=== PATIENT | female | born 1950 | race African-American/Black ===

== ENCOUNTER 2018-01-11 11:59 | Emergency (ER) | payer OTHER ==
--- NOTE | 2018-01-11 14:16 | RAD REPORT ---
EXAM DESCRIPTION: RAD - Pelvis - 01/11/2018 2:01 pm CLINICAL HISTORY: Fall, hip pain, pelvic pain COMPARISON: CT December 2016 and September 2014 TECHNIQUE: AP imaging of the pelvis was obtained. FINDINGS: No fracture of the bony pelvis. No fracture or dislocation of either proximal femur. Mild pubic symphysis degenerative changes are present. There degenerative changes at each SI joint. Dense sclerotic changes are present at the right SI joint not clearly different back to the 2015 imaging. L ower lumbar degenerative changes are present. IMPRESSION: No pelvic or proximal femur fracture identified. Stable sclerotic change at the right SI joint.
--- NOTE | 2018-01-11 14:17 | RAD REPORT ---
EXAM DESCRIPTION: RAD - Hip Right 2 View - 01/11/2018 2:01 pm CLINICAL HISTORY: Fall, hip pain COMPARISON: CT imaging December 2016 and September 2014 FINDINGS: AP and frog-leg views of the right hip were obtained. There is no fracture or dislocation . No AVN or focal femoral head abnormality. No periarticular mass or hematoma seen. SI joint degenerative change and right SI joint sclerotic change stable back to at least 2014. IMPRESSION: Negative right hip examination for acute findings.
--- NOTE | 2018-01-11 14:20 | RAD REPORT ---
EXAM DESCRIPTION: RAD - Shoulder Left 2 View - 01/11/2018 2:01 pm CLINICAL HISTORY: Fall, shoulder pain COMPARISON: None. TECHNIQUE: Internal and external rotation views of the left shoulder were obtained. FINDINGS: There is no fracture or dislocation. Mild degenerative changes at the AC joint. Acromial h umeral joint space is normal. There is some degenerative change to the undersurface of the acromion b ut no calcification in the acromial humeral joint space. Degenerative spurring is seen along the talon cular margins of the humeral head. No acute humeral head finding. IMPRESSION: Negative two-view left shoulder examination dislocation or acute finding. Humeral head and AC joint degenerative change as detailed.
--- NOTE | 2018-01-11 14:21 | RAD REPORT ---
EXAM DESCRIPTION: RAD - Forearm Left - 01/11/2018 2:01 pm CLINICAL HISTORY: Fall, arm pain COMPARISON: None. FINDINGS: No fracture is identified. There is no dislocation or periosteal reaction noted. Small bony density along the anterior margin of the joint line on the lateral view is doubtful as karen ng an avulsion. This could be part of a mild underlying elbow joint degenerative process. Anterior darrell int capsule calcification or anterior joint loose body would be possible. An acute injury to the fore arm is not identified. No foreign body. IMPRESSION: No fracture or acute finding identifiable. Small calcification along the anterior elbow joint that could be part of joint capsule calcification or small loose body. Acute bony avulsion is doubtful.
--- NOTE | 2018-01-11 14:36 | ER ---
Nurse's Notes [facility] Name: Octavia Anderson Age: 67 yrs Sex: Female : 1950 Arrival Date: 01/11/2018 Time: 12:02 Bed 11 Private MD: Diagnosis: Contusion of right hip;Contusion of left forearm;Pain in left shoulder Presentation: 01/11 12:18 Presenting complaint: Patient states: I fell Tuesday and Tuesday, I hit my R hip and my L ch forearm, my L forearm hurts. I lost my balance. Care prior to arrival: None. Mechanism of Injury: Fall fell while walking. Trauma event details: Injury occurred in the [facility], Injury occurred: at home. Injury occurred: January 08, 2018 Injury occurred at: 12:00. 12:18 Acuity: MYRNA 4 12:18 Method Of Arrival: Ambulatory 12:24 Transition of care: patient was not received from another setting of care. Onset of ch symptoms was January 08, 2018. Initial Sepsis Screen: Does the patient meet any 2 criteria? No. Patient's initial sepsis screen is negative. Does the patient have a suspected source of infection? No. Patient's initial sepsis screen is negative. Trauma Activation: Not Applicable Physician: ED Physician; Name: ; Notified At: ; Arrived At: Physician: General Surgeon; Name: ; Notified At: ; Arrived At: Physician: Radiology; Name: ; Notified At: ; Arrived At: Physician: Respiratory; Name: ; Notified At: ; Arrived At: Physician: Lab; Name: ; Notified At: ; Arrived At: Historical: - Allergies: 12:22 PENICILLINS; ch - Home Meds: 12:22 aspirin 81 mg Oral chew 1 tab once daily [Active]; carvedilol 12.5 mg oral tab 1 tab ch every 12 hours [Active]; simvastatin 40 mg Oral tab 1 tab once daily for Mixed Hyperlipidemia [Active]; trulicity 1.5mg/0.5ml pen injector 1.5 mg once a week for Diabetes [Active]; juarda [Active]; - PMHx: 12:22 Diabetes - NIDDM; GERD; Headaches; Hyperlipidemia; Hypertension; ch - PSHx: 12:22 Hysterectomy; ch - Immunization history: Last tetanus immunization: < 5 years ago. - Social history:: Smoking status: Patient/guardian denies using tobacco. Screenin:22 Abuse screen: Denies threats or abuse. Denies injuries from another. Tuberculosis ch screening: No symptoms or risk factors identified. 12:54 Nutritional screening: No deficits noted. Fall Risk Fall in past 12 months (25 points). ed1 No secondary diagnosis (0 pts). No IV (0 pts). Ambulatory Aid- Crutches/Cane/Walker (15 pts). Gait- Normal/Bed Rest/Wheelchair (0 pts) Mental Status- Oriented to own ability (0 pts). Total Min Fall Scale indicates Low Risk Score (25-44 pts). Fall prevention measures have been instituted. Frequent Obs/Assesments occuring As available Patient and Family Educated on Fall Prevention Program and strategies. Primary Survey: 12:22 A: Airway: patent. Breathing/Chest: Respiratory pattern: regular, Respiratory effort: ch spontaneous, unlabored. Circulation: Heart tones present. Disability Alert. 12:54 Reassessment Breathing/Chest Respiratory pattern Regular Respiratory effort Spontaneous ed1 Breath sounds Clear Chest inspection Symmetrical. Secondary Survey: 12:22 Gastrointestinal: No deficits noted. : No signs and/or symptoms were reported ch regarding the genitourinary system. Musculoskeletal: Circulation, motion, and sensation intact. Capillary refill < 3 seconds, in bilateral fingers. toes. Range of motion: intact in all extremities, Swelling present in palmar aspect of left forearm. Assessment: 12:18 General: Appears in no apparent distress. comfortable, Behavior is calm, cooperative, ch appropriate for age. Pain: Complains of pain in right hip and palmar aspect of left forearm Pain currently is 10 out of 10 on a pain scale. Neuro: No deficits noted. Derm: Skin is pink, warm \T\ dry. Musculoskeletal: Circulation, motion, and sensation intact. Capillary refill < 3 seconds, in bilateral fingers. toes. 12:54 Reassessment: Patient appears in no apparent distress at this time. No changes from ed1 previously documented assessment. Patient and/or family updated on plan of care and expected duration. Pain level reassessed. Patient is alert, oriented x 3, equal unlabored respirations, skin warm/dry/pink. Patient states symptoms have not improved. 13:57 Reassessment: Patient appears in no apparent distress at this time. No changes from ed1 previously documented assessment. Patient and/or family updated on plan of care and expected duration. Pain level reassessed. Patient is alert, oriented x 3, equal unlabored respirations, skin warm/dry/pink. Patient states symptoms have not improved. 14:42 Reassessment: Patient appears in no apparent distress at this time. No changes from ed1 previously documented assessment. Patient and/or family updated on plan of care and expected duration. Pain level reassessed. Patient is alert, oriented x 3, equal unlabored respirations, skin warm/dry/pink. Patient states symptoms have not improved. Vital Signs: 12:22 BP 140 / 72; Pulse 78; Resp 18; Temp 97.9; Pulse Ox 100% on R/A; Weight 106.14 kg; ch Height 5 ft. 4 in. (162.56 cm); Pain 10/10; 13:22 BP 141 / 78; Pulse 86; Resp 17; Temp 98.1(O); Pulse Ox 100% on R/A; Pain 10/10; ed1 14:22 BP 139 / 76; Pulse 66; Resp 17; Temp 97.9(O); Pulse Ox 100% on R/A; Pain 10/10; ed1 12:22 Body Mass Index 40.17 (106.14 kg, 162.56 cm) ch Kalyn Coma Score: 12:22 Eye Response: spontaneous(4). Verbal Response: oriented(5). Motor Response: obeys ch commands(6). Total: 15. Trauma Score (Adult): 12:22 Eye Response: spontaneous(1); Verbal Response: oriented(1); Motor Response: obeys ch commands(2); Systolic BP: > 89 mm Hg(4); Respiratory Rate: 10 to 29 per min(4); Kalyn Score: 15; Trauma Score: 12 13:22 Eye Response: spontaneous(1); Verbal Response: oriented(1); Motor Response: obeys ed1 commands(2); Systolic BP: > 89 mm Hg(4); Respiratory Rate: 10 to 29 per min(4); [place] Score: 15; Trauma Score: 12 14:22 Eye Response: spontaneous(1); Verbal Response: oriented(1); Motor Response: obeys ed1 commands(2); Systolic BP: > 89 mm Hg(4); Respiratory Rate: 10 to 29 per min(4); [place] Score: 15; Trauma Score: 12 ED Course: 12:02 Patient arrived in ED. sb2 12:20 Triage completed. ch 12:22 Patient has correct armband on for positive identification. ch 12:22 Patient maintains SpO2 saturation greater than 95% on room air. ch 12:24 Arm band placed on right wrist. ch 12:54 Velvet Sykes LVN is Primary Nurse. ed1 12:54 Thermoregulation: warm blanket given to patient. ed1 12:58 Dieter Holland NP is PHCP. pm1 12:58 Ross Mclean MD is Attending Physician. pm1 13:33 Patient moved to radiology via wheelchair. jb2 13:57 X-ray completed. Patient tolerated procedure well. jb2 13:57 Patient moved back from radiology. jb2 14:01 XRAY Forearm LEFT In Process Unspecified. EDMS 14:01 XRAY Pelvis In Process Unspecified. EDMS 14:01 XRAY Shoulder LEFT 2 view In Process Unspecified. EDMS 14:01 Hip Right 2 View XRAY In Process Unspecified. EDMS 14:42 No provider procedures requiring assistance completed. Patient did not have IV access ed1 during this emergency room visit. Administered Medications: No medications were administered Intake: 12:22 PO: 0ml; Total: 0ml. ch 13:22 PO: 0ml; Total: 0ml. ed1 14:22 PO: 0ml; Total: 0ml. ed1 Output: 13:22 Urine: 0ml; Total: 0ml. ed1 14:22 Urine: 0ml; Total: 0ml. ed1 Outcome: 14:36 Discharge ordered by MD. pm1 14:42 Discharged to home ambulatory. ed1 14:42 Condition: good 14:42 Discharge instructions given to patient, Instructed on discharge instructions, follow up and referral plans. Demonstrated understanding of instructions, follow-up care. 14:45 Patient's length of stay was not longer than 2 hours. ed1 14:46 Patient left the ED. ed1 Signatures: Dispatcher [employer] EDMS Florinda Gaxiola RN RN ch Buechter, Jesse jb2 Velvet Sykes LVN SENIOR ANDROID SOFTWARE ENGINEER ed1 Dieter Holland NP FREIGHT AIR BRAKE FITTER pm1 Ana Woods sb2 Corrections: (The following items were deleted from the chart) 14:44 14:42 Nutritional screening: No deficits noted. ed1 ed1 14:44 14:42 Fall Risk Fall in past 12 months (25 points). No secondary diagnosis (0 pts). No ed1 IV (0 pts). Ambulatory Aid- Crutches/Cane/Walker (15 pts). Gait- Normal/Bed Rest/Wheelchair (0 pts) Mental Status- Oriented to own ability (0 pts). Total Min Fall Scale indicates Low Risk Score (25-44 pts). Fall prevention measures have been instituted. Frequent Obs/Assesments occuring As available Patient and Family Educated on Fall Prevention Program and strategies. ed1 14:45 14:42 BP 139 / 76; Pulse 66bpm; Resp 17bpm; Pulse Ox 100% RA; Temp 97.9F Oral; Pain ed1 06/14; ed1 14:45 14:42 PO 0, Urine 0, ed1 ed1 14:45 14:42 [place] Score=15, Trauma Score=12, ed1 ed1
--- NOTE | 2018-01-11 14:37 | EDPHYS ---
Physician Documentation [facility] Name: Octavia Anderson Age: 67 yrs Sex: Female : 1950 Arrival Date: 01/11/2018 Time: 12:02 Bed 11 Private MD: ED Physician Ross Mclean HPI: 01/11 14:00 This 67 yrs old Black Female presents to ER via Ambulatory with complaints of Fall pm1 Injury. 14:00 Details of fall: The patient fell from an upright position, while walking. Onset: The pm1 symptoms/episode began/occurred 2 day(s) ago. Associated injuries: The patient sustained left arm, left shoulder, right hip. Severity of symptoms: in the emergency department the symptoms are unchanged. The patient has not experienced similar symptoms in the past. patient was walking and had a fall 2 days ago and landed on her right hip. Yesterday patient with fall on her left side that was supported by her left arm and resulted in doyle to left shoulder area. 14:00 No head injury, neck pain, or LOC. pm1 Historical: - Allergies: 12:22 PENICILLINS; ch - Home Meds: 12:22 aspirin 81 mg Oral chew 1 tab once daily [Active]; carvedilol 12.5 mg oral tab 1 tab ch every 12 hours [Active]; simvastatin 40 mg Oral tab 1 tab once daily for Mixed Hyperlipidemia [Active]; trulicity 1.5mg/0.5ml pen injector 1.5 mg once a week for Diabetes [Active]; juarda [Active]; - PMHx: 12:22 Diabetes - NIDDM; GERD; Headaches; Hyperlipidemia; Hypertension; ch - PSHx: 12:22 Hysterectomy; ch - Immunization history: Last tetanus immunization: < 5 years ago. - Social history:: Smoking status: Patient/guardian denies using tobacco. ROS: 14:00 Constitutional: Negative for fever, chills, and weight loss, Eyes: Negative for injury, pm1 pain, redness, and discharge, ENT: Negative for injury, pain, and discharge, Neck: Negative for injury, pain, and swelling, Cardiovascular: Negative for chest pain, palpitations, and edema, Respiratory: Negative for shortness of breath, cough, wheezing, and pleuritic chest pain, Abdomen/GI: Negative for abdominal pain, nausea, vomiting, diarrhea, and constipation, Back: Negative for injury and pain, : Negative for injury, bleeding, discharge, and swelling, Skin: Negative for injury, rash, and discoloration. 14:00 Neuro: Negative for headache, weakness, numbness, tingling, and seizure. 14:00 MS/extremity: Positive for pain, of the anterior aspect of left shoulder and right hip and palmar aspect of left forearm. Exam: 14:00 Constitutional: This is a well developed, well nourished patient who is awake, alert, pm1 and in no acute distress. Head/Face: Normocephalic, atraumatic. Eyes: Pupils equal round and reactive to light, extra-ocular motions intact. Lids and lashes normal. Conjunctiva and sclera are non-icteric and not injected. Cornea within normal limits. Periorbital areas with no swelling, redness, or edema. ENT: Nares patent. No nasal discharge, no septal abnormalities noted. Tympanic membranes are normal and external auditory canals are clear. Oropharynx with no redness, swelling, or masses, exudates, or evidence of obstruction, uvula midline. Mucous membranes moist. Neck: Trachea midline, no thyromegaly or masses palpated, and no cervical lymphadenopathy. Supple, full range of motion without nuchal rigidity, or vertebral point tenderness. No Meningismus. Chest/axilla: Normal chest wall appearance and motion. Nontender with no deformity. No lesions are appreciated. Cardiovascular: Regular rate and rhythm with a normal S1 and S2. No gallops, murmurs, or rubs. Normal PMI, no JVD. No pulse deficits. Respiratory: Lungs have equal breath sounds bilaterally, clear to auscultation and percussion. No rales, rhonchi or wheezes noted. No increased work of breathing, no retractions or nasal flaring. Abdomen/GI: Soft, non-tender, with normal bowel sounds. No distension or tympany. No guarding or rebound. No evidence of tenderness throughout. Back: No spinal tenderness. No costovertebral tenderness. Full range of motion. Skin: Warm, dry with normal turgor. Normal color with no rashes, no lesions, and no evidence of cellulitis. MS/ Extremity: Pulses equal, no cyanosis. Neurovascular intact. Full, normal range of motion. 14:00 Neuro: Orientation: is normal, Motor: moves all fours. Vital Signs: 12:22 BP 140 / 72; Pulse 78; Resp 18; Temp 97.9; Pulse Ox 100% on R/A; Weight 106.14 kg; ch Height 5 ft. 4 in. (162.56 cm); Pain 10/10; 13:22 BP 141 / 78; Pulse 86; Resp 17; Temp 98.1(O); Pulse Ox 100% on R/A; Pain 10/10; ed1 14:22 BP 139 / 76; Pulse 66; Resp 17; Temp 97.9(O); Pulse Ox 100% on R/A; Pain 10/10; ed1 12:22 Body Mass Index 40.17 (106.14 kg, 162.56 cm) ch Gray Coma Score: 12:22 Eye Response: spontaneous(4). Verbal Response: oriented(5). Motor Response: obeys ch commands(6). Total: 15. Trauma Score (Adult): 12:22 Eye Response: spontaneous(1); Verbal Response: oriented(1); Motor Response: obeys ch commands(2); Systolic BP: > 89 mm Hg(4); Respiratory Rate: 10 to 29 per min(4); Gray Score: 15; Trauma Score: 12 13:22 Eye Response: spontaneous(1); Verbal Response: oriented(1); Motor Response: obeys ed1 commands(2); Systolic BP: > 89 mm Hg(4); Respiratory Rate: 10 to 29 per min(4); [place] Score: 15; Trauma Score: 12 14:22 Eye Response: spontaneous(1); Verbal Response: oriented(1); Motor Response: obeys ed1 commands(2); Systolic BP: > 89 mm Hg(4); Respiratory Rate: 10 to 29 per min(4); Gray Score: 15; Trauma Score: 12 MDM: 13:03 Patient medically screened. pm1 14:34 Data reviewed: vital signs. Data interpreted: Pulse oximetry: on is 100 %. pm1 Interpretation: normal. Counseling: I had a detailed discussion with the patient and/or guardian regarding: the historical points, exam findings, and any diagnostic results supporting the discharge/admit diagnosis, radiology results, the need for outpatient follow up, to return to the emergency department if symptoms worsen or persist or if there are any questions or concerns that arise at home. 14:39 ED course: Patient has tramadol and tylenol #3 at home. pm1 01/11 12:26 Order name: XRAY Forearm LEFT; Complete Time: 14:26 01/11 12:26 Order name: XRAY Pelvis; Complete Time: 14:26 01/11 12:27 Order name: XRAY Shoulder LEFT 2 view; Complete Time: 14:26 01/11 13:02 Order name: Hip Right 2 View XRAY; Complete Time: 14:26 pm1 Administered Medications: No medications were administered Disposition: 22:31 Co-signature as Attending Physician, Ross Mclean MD I agree with the assessment and kdr plan of care. Disposition: 01/11/18 14:36 Discharged to Home. Impression: Contusion of right hip, Contusion of left forearm, Pain in left shoulder. - Condition is Stable. - Discharge Instructions: Contusion, Shoulder Pain, Hip Pain. - Medication Reconciliation Form, Thank You Letter form. - Follow up: Emergency Department; When: As needed; Reason: Worsening of condition. Follow up: Private Physician; When: 2 - 3 days; Reason: Recheck today's complaints, Continuance of care, Re-evaluation by your physician. - Problem is new. - Symptoms have improved. Signatures: Dispatcher [employer] EDMS Florinda Gaxiola, PASTOR BAUMANN Ross Mclean MD MD [facility] Velvet Sykes, BULL FLOAT FINISHER BULL FLOAT FINISHER ed1 Dieter Holland, DIRECTOR OF RECRUITING DIRECTOR OF RECRUITING pm1 Corrections: (The following items were deleted from the chart) 14:46 14:36 01/11/2018 14:36 Discharged to Home. Impression: Contusion of right hip; ed1 Contusion of left forearm; Pain in left shoulder. Condition is Stable. Forms are Medication Reconciliation Form, Thank You Letter, Antibiotic Education, Prescription Opioid Use. Follow up: Emergency Department; When: As needed; Reason: Worsening of condition. Follow up: Private Physician; When: 2 - 3 days; Reason: Recheck today's complaints, Continuance of care, Re-evaluation by your physician. Problem is new. Symptoms have improved. pm1
[2018-01-11 14:50] VITALS: O2SAT 100
[2018-01-11 14:53] VITALS: BP 139/76; TEMP 97.9
== END 2018-01-11 14:46 | disposition home or self-care (01) ==
LOC: ER 11:59
DX: S70.01XA Contusion of right hip, initial encounter (principal); S50.12XA Contusion of left forearm, initial encounter; I10 Essential (primary) hypertension; E11.9 Type 2 diabetes mellitus without complications; E78.5 Hyperlipidemia, unspecified; Z79.82 Long term (current) use of aspirin; Z88.0 Allergy status to penicillin; W18.30XA Fall on same level, unspecified, initial encounter; Y93.01 Activity, walking, marching and hiking; Y92.9 Unspecified place or not applicable
CPT/HCPCS: 72170; 99284

== ENCOUNTER 2018-08-13 14:50 | Emergency (ER) | payer OTHER ==
--- OUTSIDE RECORDS SUMMARY | 2018-08-13 14:52 | XMS REPORT | Summary of Care ---
:1950 Author Organization [facility] [place] Address [address] [place] [address]- Encounter HQ Tiffany(MICHELE) [id number] Date(s): 09/14/17 - 09/14/17 [facility] [place] [id number] [place] [address]- [phone] Discharge Disposition: Home or Self Care Attending Physician: Heather Grullon MD Vital Signs Most recent to oldest [Reference Range]: 1 Height 154.94 cm (09/14/17 7:49 AM) Temperature Oral [96.4-99.1 DegF] 98.4 DegF (09/14/17 7:49 AM) Blood Pressure [90-140/60-90 mmHg] 142/90 mmHg *HI* (09/14/17 7:49 AM) Peripheral Pulse Rate [60-100 bpm] 72 bpm (09/14/17 7:49 AM) Weight 110.54 kg (09/14/17 7:49 AM) Body Mass Index 46.05 m2 (09/14/17 7:49 AM) Problem List Condition Effective Dates Status Health Status Informant Morbid obesity(Confirmed) Active Allergies, Adverse Reactions, Alerts Substance Reaction Severity Status penicillins Active Medications Anusol-HC 2.5% rectal cream with applicator 1 appl, PA, BID, X 14 day, # 30 gm, 0 Refill(s), Pharmacy: [id number] Start Date: 09/14/17 Stop Date: 09/28/17 Status: Completedaspirin 0 Refill(s) Start Date: 09/14/17 Stop Date: 10/21/17 Status: DiscontinuedInvokana PO, Daily, 0 Refill(s) Start Date: 09/14/17 Stop Date: 10/21/17 Status: Discontinuedsimvastatin PO, Bedtime, 0 Refill(s) Start Date: 09/14/17 Stop Date: 10/21/17 Status: DiscontinuedTrulicity Pen 1.5 mg/0.5 mL subcutaneous solution SUB-Q, 0 Refill(s) Start Date: 09/14/17 Stop Date: 10/21/17 Status: Discontinued Results No data available for this section Immunizations No data available for this section Procedures Procedure Date Related Diagnosis Body Site Status Hysterectomy Completed Social History Social History Type Response Employment/School Status: Retired. Alcohol Never Smoking Status Never smoker; Exposure to Tobacco Smoke None; Cigarette Smoking Last 365 Days No; Reg Smoking Cessation Counseling No entered on: 10/21/17 Assessment and Plan No data available for this section
--- OUTSIDE RECORDS SUMMARY | 2018-08-13 14:52 | XMS REPORT | Summary of Care ---
:1950 Author Organization [facility] Address [address] [place] [address]- Encounter HQ Tiffany(MICHELE) [id number] Date(s): 10/21/17 - 10/21/17 [facility] [address] [facility] [place] [address]- [phone] Discharge Disposition: Home or Self Care Attending Physician: Yudi Lew PA-C Vital Signs Most recent to oldest [Reference Range]: 1 Height 154.94 cm (10/21/17 8:07 AM) Temperature Oral [96.4-99.1 DegF] 98.7 DegF (10/21/17 8:07 AM) Blood Pressure [90-140/60-90 mmHg] 107/74 mmHg (10/21/17 8:07 AM) Respiratory Rate [14-20 BRMIN] 18 BRMIN (10/21/17 8:07 AM) Peripheral Pulse Rate [60-100 bpm] 74 bpm (10/21/17 8:07 AM) Weight 110.455 kg (10/21/17 8:07 AM) Body Mass Index 46.01 m2 (10/21/17 8:07 AM) Problem List Condition Effective Dates Status Health Status Informant Morbid obesity(Confirmed) Active Allergies, Adverse Reactions, Alerts Substance Reaction Severity Status penicillins Active Medications aspirin 81 mg tablet, enteric coated 81 mg=1 tab, PO, Daily, # 90 tab, 3 Refill(s) Start Date: 10/21/17 Status: OrderedEdarbyclor 40 mg-12.5 mg oral tablet 1 tab, PO, Daily, # 30 tab, 3 Refill(s) Start Date: 10/21/17 Status: OrderedInvokana 100 mg oral tablet 100 mg=1 tab, PO, Before Breakfast, # 30 tab, 0 Refill(s) Start Date: 10/21/17 Status: Orderedsimvastatin 40 mg oral tablet 40 mg=1 tab, PO, Bedtime, # 90 tab, 1 Refill(s) Start Date: 10/21/17 Status: OrderedTessalon Perles 100 mg oral capsule 100 mg=1 cap, PO, Bedtime, prn cough, # 15 cap, 0 Refill(s), Pharmacy: [id number] Start Date: 10/21/17 Status: OrderedTrulicity Pen 1.5 mg/0.5 mL subcutaneous solution SUB-Q, 0 Refill(s) Start Date: 10/21/17 Status: OrderedZithromax Z-Robert 250 mg oral tablet See Instructions, Take 2 tablets by mouth the first day then 1 tablet by mouth days 2-5., X 5 day, #6 tab, 0 Refill(s), Pharmacy: [id number] Start Date: 10/21/17 Stop Date: 10/26/17 Status: Completed Results No data available for this section [...]
[2018-08-13] MEDS ORDERED: HYDROCODONE/APAP 7.5/325 MG TAB ONE (16:00)
--- NOTE | 2018-08-13 16:55 | ER ---
Nurse's Notes [facility] Name: Octavia Anderson Age: 68 yrs Sex: Female : 1950 Arrival Date: 08/13/2018 Time: 14:53 Bed 25 Private MD: Amador Ordaz K Diagnosis: Pain in right leg Presentation: 08/13 15:09 Presenting complaint: Patient states: Low back pain and right posterior hip pain since aj May. Seen Neurologist 05/29 and had MRI, DX with Arthritis. Patient reports that she believes something more is going on. Has not followed up since MRI. Transition of care: patient was not received from another setting of care. Onset of symptoms was May 2018. Risk Assessment: Do you want to hurt yourself or someone else? Patient reports no desire to harm self or others. Initial Sepsis Screen: Does the patient meet any 2 criteria? No. Patient's initial sepsis screen is negative. Does the patient have a suspected source of infection? No. Patient's initial sepsis screen is negative. Care prior to arrival: None. 15:09 Method Of Arrival: Ambulatory 15:09 Acuity: MYRNA 4 Triage Assessment: 15:11 General: Appears in no apparent distress. comfortable, Behavior is calm, cooperative, aj appropriate for age. Pain: Complains of pain in low back area, buttocks, right gluteal fold and right hamstring. Neuro: Level of Consciousness is awake, alert, obeys commands, Oriented to person, place, time, situation, Appropriate for age. Respiratory: Airway is patent Respiratory effort is even, unlabored, Respiratory pattern is regular, symmetrical. Derm: Skin is intact, is healthy with good turgor, Skin is pink, warm \T\ dry. normal. Musculoskeletal: Reports pain in back, buttocks, right gluteal fold and right hamstring. Historical: - Allergies: 15:11 PENICILLINS; aj - Home Meds: 15:11 aspirin 81 mg Oral chew 1 tab once daily [Active]; carvedilol 12.5 mg Oral tab 1 tab aj every 12 hours [Active]; cyclobenzaprine 10 mg Oral tab 1 tab 3 times per day for Muscle Spasm [Active]; Edarbyclor 40-12.5 mg Oral tab 1 tab once daily for Hypertension [Active]; Invokana 100 mg Oral tab 1 tab once daily for Type 2 Diabetes Mellitus [Active]; Jardiance oral oral [Active]; pantoprazole 40 mg Oral TbEC 1 tab once daily for Gastroesophageal reflux [Active]; simvastatin 40 mg Oral tab 1 tab once daily for Mixed Hyperlipidemia [Active]; trulicity 1.5mg/0.5ml pen injector 1.5 mg once a week for Diabetes [Active]; Vitamin D Oral 5000 unit daily [Active]; - PMHx: 15:11 Diabetes - NIDDM; GERD; Headaches; Hyperlipidemia; Hypertension; Arthritis; aj - PSHx: 15:11 Hysterectomy; aj - Immunization history:: Adult Immunizations up to date. - Social history:: Smoking status: Patient/guardian denies using tobacco. - Ebola Screening: : Patient negative for fever greater than or equal to 101.5 degrees Fahrenheit, and additional compatible Ebola Virus Disease symptoms Patient denies exposure to infectious person Patient denies travel to an Ebola-affected area in the 21 days before illness onset No symptoms or risks identified at this time. - Family history:: not pertinent. Screenin:46 Abuse screen: Denies threats or abuse. Denies injuries from another. Nutritional ed1 screening: No deficits noted. Tuberculosis screening: No symptoms or risk factors identified. Fall Risk None identified. Assessment: 17:01 Reassessment: Patient appears in no apparent distress at this time. Patient and/or ed1 family updated on plan of care and expected duration. Pain level reassessed. Patient is alert, oriented x 3, equal unlabored respirations, skin warm/dry/pink. Patient states feeling better. Patient states symptoms have improved. Vital Signs: 15:11 BP 115 / 75; Pulse 97; Resp 16; Temp 98.6; Pulse Ox 100% on R/A; Weight 99.79 kg; aj Height 5 ft. 4 in. (162.56 cm) (R); 17:01 BP 123 / 74; Pulse 83; Resp 17; Temp 97.5(O); Pulse Ox 100% on R/A; Pain 4/10; ed1 15:11 Body Mass Index 37.76 (99.79 kg, 162.56 cm) aj ED Course: 14:53 Patient arrived in ED. as 14:53 Fabrizio Ordaz MD is Private Physician. as 14:53 Amador Ordaz MD is Private Physician. as 15:10 Triage completed. aj 15:11 Arm band placed on left wrist. Patient placed in waiting room, Patient notified of wait aj time. 15:44 Ray Nowak MD is Attending Physician. alan 15:46 Velvet Sykes LVN is Primary Nurse. ed1 15:46 Patient has correct armband on for positive identification. Placed in gown. Bed in low ed1 position. Call light in reach. Pulse ox on. NIBP on. Door closed. Warm blanket given. 16:47 Pelvis XRAY In Process Unspecified. EDMS 16:47 Hip Right 2 View XRAY In Process Unspecified. EDMS 16:47 Femur Right XRAY In Process Unspecified. EDMS 17:01 No provider procedures requiring assistance completed. Patient did not have IV access ed1 during this emergency room visit. Administered Medications: 15:53 Drug: [place] (7.5 mg-325 mg) 1 tabs Route: PO; ed1 17:02 Follow up: Response: No adverse reaction; Pain is decreased ed1 Outcome: 16:55 Discharge ordered by . alan 17:01 Discharged to home ambulatory. ed1 17:01 Condition: good 17:01 Discharge instructions given to patient, Instructed on discharge instructions, follow up and referral plans. medication usage, Demonstrated understanding of instructions, follow-up care, medications, Prescriptions given X 1. 17:03 Patient left the ED. ed1 Signatures: Dispatcher [employer] Sharon Matthews RN RN aj Anderson, Corey, MD MD cha Martinez, Amelia as Riggs, Erika, LVN LVN ed1
--- NOTE | 2018-08-13 16:56 | EDPHYS ---
Physician Documentation [facility] Name: Octavia Anderson Age: 68 yrs Sex: Female : 1950 Arrival Date: 08/13/2018 Time: 14:53 Bed 25 Private MD: Amador Ordaz K ED Physician Ray Nowak HPI: 08/13 15:50 This 68 yrs old Black Female presents to ER via Ambulatory with complaints of Thigh alan Pain, Hip Pain. 15:50 The patient or guardian reports decreased range of motion, pain. sustained from unknown alan reason, There is no obvious deformity. The complaints affect the right hip, lateral aspect of right thigh, right upper thigh and right quadriceps. Onset: The symptoms/episode began/occurred 2 day(s) ago. Modifying factors: The symptoms are alleviated by nothing, the symptoms are aggravated by nothing. Associated signs and symptoms: Loss of consciousness: the patient experienced no loss of consciousness. Severity of symptoms: At their worst the symptoms were. The patient has not experienced similar symptoms in the past. Historical: - Allergies: 15:11 PENICILLINS; aj - Home Meds: 15:11 aspirin 81 mg Oral chew 1 tab once daily [Active]; carvedilol 12.5 mg Oral tab 1 tab aj every 12 hours [Active]; cyclobenzaprine 10 mg Oral tab 1 tab 3 times per day for Muscle Spasm [Active]; Edarbyclor 40-12.5 mg Oral tab 1 tab once daily for Hypertension [Active]; Invokana 100 mg Oral tab 1 tab once daily for Type 2 Diabetes Mellitus [Active]; Jardiance oral oral [Active]; pantoprazole 40 mg Oral TbEC 1 tab once daily for Gastroesophageal reflux [Active]; simvastatin 40 mg Oral tab 1 tab once daily for Mixed Hyperlipidemia [Active]; trulicity 1.5mg/0.5ml pen injector 1.5 mg once a week for Diabetes [Active]; Vitamin D Oral 5000 unit daily [Active]; - PMHx: 15:11 Diabetes - NIDDM; GERD; Headaches; Hyperlipidemia; Hypertension; Arthritis; aj - PSHx: 15:11 Hysterectomy; aj - Immunization history:: Adult Immunizations up to date. - Social history:: Smoking status: Patient/guardian denies using tobacco. - Ebola Screening: : Patient negative for fever greater than or equal to 101.5 degrees Fahrenheit, and additional compatible Ebola Virus Disease symptoms Patient denies exposure to infectious person Patient denies travel to an Ebola-affected area in the 21 days before illness onset No symptoms or risks identified at this time. - Family history:: not pertinent. ROS: 15:50 Constitutional: Negative for fever, chills, and weight loss, Eyes: Negative for injury, alan pain, redness, and discharge, ENT: Negative for injury, pain, and discharge, Neck: Negative for injury, pain, and swelling, Cardiovascular: Negative for chest pain, palpitations, and edema, Respiratory: Negative for shortness of breath, cough, wheezing, and pleuritic chest pain, Abdomen/GI: Negative for abdominal pain, nausea, vomiting, diarrhea, and constipation, Back: Negative for injury and pain, : Negative for injury, bleeding, discharge, and swelling, Skin: Negative for injury, rash, and discoloration, Neuro: Negative for headache, weakness, numbness, tingling, and seizure, Psych: Negative for depression, anxiety, suicide ideation, homicidal ideation, and hallucinations, Allergy/Immunology: Negative for hives, rash, and allergies, Endocrine: Negative for neck swelling, polydipsia, polyuria, polyphagia, and marked weight changes, Hematologic/Lymphatic: Negative for swollen nodes, abnormal bleeding, and unusual bruising. 15:50 MS/extremity: Positive for decreased range of motion, pain, tenderness, of the left hip, lateral aspect of left thigh, left upper thigh and left quadriceps. Exam: 15:50 Constitutional: This is a well developed, well nourished patient who is awake, alert, alan and in no acute distress. Head/Face: Normocephalic, atraumatic. Eyes: Pupils equal round and reactive to light, extra-ocular motions intact. Lids and lashes normal. Conjunctiva and sclera are non-icteric and not injected. Cornea within normal limits. Periorbital areas with no swelling, redness, or edema. ENT: Nares patent. No nasal discharge, no septal abnormalities noted. Tympanic membranes are normal and external auditory canals are clear. Oropharynx with no redness, swelling, or masses, exudates, or evidence of obstruction, uvula midline. Mucous membranes moist. Neck: Trachea midline, no thyromegaly or masses palpated, and no cervical lymphadenopathy. Supple, full range of motion without nuchal rigidity, or vertebral point tenderness. No Meningismus. Chest/axilla: Normal chest wall appearance and motion. Nontender with no deformity. No lesions are appreciated. Cardiovascular: Regular rate and rhythm with a normal S1 and S2. No gallops, murmurs, or rubs. Normal PMI, no JVD. No pulse deficits. Respiratory: Lungs have equal breath sounds bilaterally, clear to auscultation and percussion. No rales, rhonchi or wheezes noted. No increased work of breathing, no retractions or nasal flaring. Abdomen/GI: Soft, non-tender, with normal bowel sounds. No distension or tympany. No guarding or rebound. No evidence of tenderness throughout. Back: No spinal tenderness. No costovertebral tenderness. Full range of motion. Skin: Warm, dry with normal turgor. Normal color with no rashes, no lesions, and no evidence of cellulitis. Neuro: Awake and alert, GCS 15, oriented to person, place, time, and situation. Cranial nerves II-XII grossly intact. Motor strength 5/5 in all extremities. Sensory grossly intact. Cerebellar exam normal. Normal gait. Psych: Awake, alert, with orientation to person, place and time. Behavior, mood, and affect are within normal limits. 15:50 Musculoskeletal/extremity: Extremities: decreased ROM, pain, ROM: full active range of motion, full passive range of motion, Circulation is intact in all extremities. Sensation intact. Compartment Syndrome exam of affected extremity: is normal. DVT Exam: no swelling, no tenderness, negative Homans' sign noted on exam, no appreciated bluish discoloration, no erythema, no increased warmth, pain, no rash. Vital Signs: 15:11 BP 115 / 75; Pulse 97; Resp 16; Temp 98.6; Pulse Ox 100% on R/A; Weight 99.79 kg; aj Height 5 ft. 4 in. (162.56 cm) (R); 17:01 BP 123 / 74; Pulse 83; Resp 17; Temp 97.5(O); Pulse Ox 100% on R/A; Pain 4/10; ed1 15:11 Body Mass Index 37.76 (99.79 kg, 162.56 cm) aj MDM: 15:44 Patient medically screened. [facility] 15:52 Data reviewed: vital signs, nurses notes, lab test result(s), radiologic studies, plain [facility] films. 08/13 15:50 Order name: Pelvis XRAY [facility] 08/13 15:50 Order name: Hip Right 2 View XRAY [facility] 08/13 15:50 Order name: Femur Right XRAY [facility] Administered Medications: 15:53 Drug: [employer] (7.5 mg-325 mg) 1 tabs Route: PO; ed1 17:02 Follow up: Response: No adverse reaction; Pain is decreased ed1 Disposition: 08/13/18 16:55 Discharged to Home. Impression: Pain in right leg. - Condition is Stable. - Discharge Instructions: Type 2 Diabetes Mellitus, Diagnosis, Adult, Musculoskeletal Pain, Type 2 Diabetes Mellitus, Diagnosis, Adult, [id number], Type 2 Diabetes Mellitus, Self Care, Adult, Type 2 Diabetes Mellitus, Self Care, Adult, [id number]. - Prescriptions for Tylenol- Codeine #3 300-30 mg Oral Tablet - take 2 tablet by ORAL route every 6 hours As needed; 30 tablet. - Medication Reconciliation Form, Thank You Letter, Antibiotic Education, Prescription Opioid Use form. - Follow up: Private Physician; When: 2 - 3 days; Reason: Recheck today's complaints, Continuance of care, Re-evaluation by your physician. - Problem is new. - Symptoms have improved. Signatures: Dispatcher [employer] EDSharon Strong RN RN aj Anderson, Corey, MD MD cha Riggs, Erika, HEADING MAKER HEADING MAKER ed1 Corrections: (The following items were deleted from the chart) 17:03 16:55 08/13/2018 16:55 Discharged to Home. Impression: Pain in right leg. Condition is ed1 Stable. Discharge Instructions: Type 2 Diabetes Mellitus, Diagnosis, Adult, Musculoskeletal Pain, Type 2 Diabetes Mellitus, Diagnosis, Adult, [id number], Type 2 Diabetes Mellitus, Self Care, Adult, Type 2 Diabetes Mellitus, Self Care, Adult, [id number]. Prescriptions for Tylenol-Codeine #3 300-30 mg Oral Tablet - take 2 tablet by ORAL route every 6 hours As needed; 30 tablet. and Forms are Medication Reconciliation Form, Thank You Letter, Antibiotic Education, Prescription Opioid Use. Follow up: Private Physician; When: 2 - 3 days; Reason: Recheck today's complaints, Continuance of care, Re-evaluation by your physician. Problem is new. Symptoms have improved. alan
--- NOTE | 2018-08-13 17:13 | RAD REPORT ---
EXAM DESCRIPTION: RAD - Pelvis - 08/13/2018 4:50 pm CLINICAL HISTORY: Back pain, right-sided hip pain COMPARISON: January 2018 TECHNIQUE: AP imaging of the pelvis was obtained. FINDINGS: No fracture of the bony pelvis identified. Lower lumbar degenerative changes are present b ut only partially imaged. Minimal left SI joint degenerative changes are present. L5 body is sacralized. There is dense sclerot ic change at the right SI joint, primarily in the ileum. This is a stable presentation. Mild scleroti c change at the pubic symphysis also present and stable. Phleboliths are seen. No acute hip joint fin ding. IMPRESSION: No fracture or acute pelvis finding. Dense sclerosis around the right SI joint has not changed from January imaging.
--- NOTE | 2018-08-13 17:14 | RAD REPORT ---
EXAM DESCRIPTION: RAD - Hip Right 2 View - 08/13/2018 4:50 pm CLINICAL HISTORY: Back pain, right hip pain COMPARISON: None. FINDINGS: AP and frog-leg views of the right hip were obtained. No AVN or focal femoral head abnorma lity. There is no fracture or dislocation. No acute or destructive bony process seen. No periarticul ar mass or hematoma. No suspicious soft tissue finding. IMPRESSION: Negative right hip examination for acute findings. No significant change from May examin ation.
--- NOTE | 2018-08-13 17:15 | RAD REPORT ---
EXAM DESCRIPTION: RAD - Femur Right - 08/13/2018 4:50 pm CLINICAL HISTORY: Hip pain, right leg pain COMPARISON: Right hip same date, pelvis same date FINDINGS: No fracture, dislocation or periosteal reaction noted. Slight narrowing of the medial comp artment seen at the knee joint. There are prominent medial compartment marginal spurs. No joint effus ion is seen. The shaft and distal femur show no acute findings. Hip joint and proximal femur are deta iled on the separate right hip report. No air or foreign body in the soft tissues. IMPRESSION: Medial compartment degenerative changes of the knee. No joint effusion. No acute femur finding.
[2018-08-13 18:34] VITALS: O2SAT 100
[2018-08-13 18:36] VITALS: BP 123/74; TEMP 97.5
== END 2018-08-13 17:03 | disposition home or self-care (01) ==
LOC: ER 14:50
DX: M79.604 Pain in right leg (principal); I10 Essential (primary) hypertension; E11.9 Type 2 diabetes mellitus without complications; E78.5 Hyperlipidemia, unspecified; Z79.4 Long term (current) use of insulin; Z79.82 Long term (current) use of aspirin; Z88.0 Allergy status to penicillin
CPT/HCPCS: 72170; 99284

== ENCOUNTER 2018-12-28 09:38 | Emergency (ER) | payer OTHER ==
--- OUTSIDE RECORDS SUMMARY | 2018-12-28 09:41 | XMS REPORT | Summary of Care ---
:1950 Author Organization [facility] Address Unavailable , Encounter HQ Tiffany(MICHELE) [id number] Date(s): 09/25/18 - 10/24/18 [facility] Discharge Disposition: Home or Self Care Attending Physician: Jackson Del Rosario DO Vital Signs No data available for this section Problem List Condition Effective Dates Status Health Status Informant Diabetes mellitus type 2(Confirmed)1 Active Morbid obesity(Confirmed) Active 1Automatically added by Discern Expert with order of Add Problem Diabetes Type II on August 23, 2018 10:35:16 LEAD MANUFACTURING ENGINEERING TECH with order ID: [id number] entered by Yudi Lew. Allergies, Adverse Reactions, Alerts Substance Reaction Severity Status penicillins Active codeine Active Medications No data available for this section Results No data available for this section Immunizations No data available for this section Procedures Procedure Date Related Diagnosis Body Site Status Hysterectomy Completed Social History Social History Type Response Substance Abuse Use: None. Exercise 1 Employment/School Status: Retired. Alcohol Never Smoking Status Never smoker; Exposure to Tobacco Smoke None; Cigarette Smoking Last 365 Days No; Reg Smoking Cessation Counseling No entered on: 08/23/18 1Very little Assessment and Plan No data available for this section
--- OUTSIDE RECORDS SUMMARY | 2018-12-28 09:41 | XMS REPORT | Summary of Care ---
:1950 Author Organization [facility] Address Unavailable , Encounter HQ Tiffany(MICHELE) [id number] Date(s): 10/25/18 - 11/23/18 [facility] Discharge Disposition: Home or Self Care Attending Physician: Jackson Del Rosario DO Vital Signs No data available for this section Problem List Condition Effective Dates Status Health Status Informant Diabetes mellitus type 2(Confirmed)1 Active Morbid obesity(Confirmed) Active 1Automatically added by Discern Expert with order of Add Problem Diabetes Type II on August 23, 2018 10:35:16 BENDER HELPER with order ID: [id number] entered by Yudi Lew. Allergies, Adverse Reactions, [...] Reg Smoking Cessation Counseling No entered on: 11/21/18 1Very little Assessment and Plan No data available for this section
--- OUTSIDE RECORDS SUMMARY | 2018-12-28 09:41 | XMS REPORT | Continuity of Care Document ---
:1950 Author Organization Interface Problems Problem Status Onset Classification Date Comments Source Date Reported RT SIDE Active 10/25/19 [facility]; [facility] RT SIDE Active 09/20/19 [facility] Diabetes Active Problem 11/25/2018 Automatically [facility] mellitus type added by Radha [facility] 2<sup>1</sup> Expert with Bone & order of Add Joint, Problem Diabetes Medical Type II on Group August 23, 2018 10:35:16 CONSTRUCTION CONSULTANT with order ID: [id number] entered by Ruiz Lew. Morbid Active Problem 11/25/2018 [facility] Medications Medication Details Route Status Patient Ordering Order Source Instructions Provider Date Fluticasone 1 spray, Active propionate 0.05 NASAL, BID, 019 Medical MG/ACTUAT Metered # 16 gm, 0 Group Dose Nasal [place] Refill(s), [Flonase] Pharmacy: [facility] montelukast 10 MG 10 mg=1 Active Oral Tablet tab, PO, 019 Medical [Singulair] Bedtime, # Group 30 tab, 0 Refill(s), Pharmacy: [facility] Ipratropium 2 spray, Active [place] 0.042 NASAL, TID, 019 Medical MG/ACTUAT Metered PRN for Group Dose Nasal [place] cold [Atrovent] symptoms, [place] in both nostrils, X 30 day, # 1 ea, 0 Refill(s), Pharmacy: [facility] 546 Vitamin D3 0 Refill(s) Active 019 Medical Group benzonatate 100 100 mg=1 Active MH MG Oral Capsule cap, PO, 018 Medical [Tessalon Perles] Bedtime, Group prn cough, # 15 cap, 0 Refill(s), Pharmacy: [facility] {6 (Azithromycin See No Longer MH 250 MG Oral Instruction Active 018 Medical Tablet s, Take 2 Group [Zithromax]) } tablets by Pack [Z-PAKS] mouth the first day then 1 tablet by mouth days 2-5., X 5 day, # 6 tab, 0 Refill(s), Pharmacy: [facility] simvastatin 40 mg 40 mg=1 Active MH oral tablet tab, PO, 018 Medical Bedtime, # Group 90 tab, 1 Refill(s) Aspirin 81 MG 81 mg=1 Active MH Enteric Coated tab, PO, 018 Medical Tablet Daily, # 90 Group tab, 3 Refill(s) canagliflozin 100 100 mg=1 Active MH MG Oral Tablet tab, PO, 018 Medical [Invokana] Before Group Breakfast, # 30 tab, 0 Refill(s) 0.5 ML SUB-Q, 0 Active MH dulaglutide 3 Refill(s) 018 Medical MG/ML Prefilled Group Syringe [Trulicity] azilsartan 1 tab, PO, Active MH medoxomil 40 MG / Daily, # 30 018 Medical Chlorthalidone tab, 3 Group 12.5 MG Oral Refill(s) Tablet [Edarbyclor 40/12.5] Hydrocortisone 25 1 appl, SD, No Longer MH MG/ML Topical BID, X 14 Active 018 Medical Cream [Anusol HC] day, # 30 Group gm, 0 Refill(s), Pharmacy: [facility] Aspirin 0 Refill(s) No Longer MH Active 018 Medical Group Invokana PO, Daily, No Longer MH 0 Refill(s) Active 018 Medical Group Simvastatin PO, No Longer MH Bedtime, 0 Active 018 Medical Refill(s) Group 0.5 ML SUB-Q, 0 No Longer MH dulaglutide 3 Refill(s) Active 018 Medical MG/ML Prefilled Group Syringe [Trulicity] Allergies, Adverse Reactions, Alerts Substance Category Reaction Severity Reaction Status Date Comments Source type Reported penicillins Assertion Drug Active [facility] codeine Assertion Drug Active [facility] allergy [facility] Immunizations Immunization Date Given Site Status Last Updated Comments Source Results Order Results Value Reference Date Interpretation Comments Source Name Range Vital Signs Vital Sign Value Date Comments Source Weight 95.682 11/21/2018 [facility] Group BMI Calculated 41.2 11/21/2018 [facility] Height 152.4 cm 11/21/2018 [facility] Temperature Oral (F) 98.1 F 11/21/2018 [facility] Group Heart Rate 86 11/21/2018 [facility] Group Systolic (mm Hg) 100 11/21/2018 [facility] Group Diastolic (mm Hg) 76 11/21/2018 Medical Group Weight 110.455 10/21/2017 [facility] Group Systolic (mm Hg) 107 10/21/2017 [facility] Group Diastolic (mm Hg) 74 10/21/2017 Medical Group Heart Rate 74 10/21/2017 Medical Group Respitory Rate 18 10/21/2017 Medical Group Height 154.94 cm 10/21/2017 Medical Group BMI Calculated 46.01 10/21/2017 [facility] Group Temperature Oral (F) 98.7 F 10/21/2017 [facility] Group BMI Calculated 46.05 09/14/2017 Medical Group Heart Rate 72 09/14/2017 [facility] Group Temperature Oral (F) 98.4 F 09/14/2017 [facility] Group Systolic (mm Hg) 142 09/14/2017 [facility] Group Diastolic (mm Hg) 90 09/14/2017 Medical Group Weight 110.54 09/14/2017 [facility] Height 154.94 cm 09/14/2017 [facility] Group Encounters Location Location Encounter Encounter Reason Attending ADM DC Status Source Details Type Number For Provider Date Date Visit Outpatient [id number] HEATHER 09/14 [facility] Outpatient [id number] Heather 09/14 09/15 [facility] Out[facility] [id number] RUIZ 10/21 [facility] Outpatient [id number] Ruiz 10/21 10/22 [facility] Outpatient [id number] RUIZ 08/23 [facility] OP Therapy [id number] Jackson09/25 [facility] [place] /2018 [facility] OP Therapy [id number] Jackson 10/25 11/24 [facility] [place] /2018 [facility] Outpatient [id number] THERESA 11/[address] [facility] GARCIA /2018 [facility] Outpatient [id number] Theresa [facility]/21 [facility] Procedures Procedure Code Date Perfomer Comments Source Hysterectomy [id number] [facility] Hysterectomy [id number] [facility] Group
--- OUTSIDE RECORDS SUMMARY | 2018-12-28 09:41 | XMS REPORT | Summary of Care ---
:1950 Author Organization [facility] Address [address] [place] [address]- Encounter HQ Tiffany(MICHELE) [id number] Date(s): 11/21/18 - 11/21/18 [facility] [address] [place] [address]- [phone] Discharge Disposition: Home or Self Care Attending Physician: Theresa Luna MD Vital Signs Most recent to oldest [Reference Range]: 1 Height 152.4 cm (11/21/18 8:04 AM) Temperature Oral [96.4-99.1 DegF] 98.1 DegF (11/21/18 8:04 AM) Blood Pressure [90-140/60-90 mmHg] 100/76 mmHg (11/21/18 8:04 AM) Peripheral Pulse Rate [60-100 bpm] 86 bpm (11/21/18 8:04 AM) Weight 95.682 kg (11/21/18 8:04 AM) Body Mass Index 41.2 m2 (11/21/18 8:04 AM) Problem List Condition Effective Dates Status Health Status Informant Diabetes mellitus type 2(Confirmed)1 Active Morbid obesity(Confirmed) Active 1Automatically added by Discern Expert with order of Add Problem Diabetes Type II on August 23, 2018 10:35:16 [employer] with order ID: [id number] entered by Yudi Lew. Allergies, Adverse Reactions, Alerts Substance Reaction Severity Status penicillins Active codeine Active Medications Atrovent Nasal 0.06% nasal spray 2 spray, NASAL, TID, PRN for cold symptoms, [place] in both nostrils, X 30 day, # 1 ea, 0 Refill(s), Pharmacy: [facility] Start Date: 11/21/18 Stop Date: 12/21/18 Status: OrderedFlonase 0.05 mg/inh nasal spray 1 spray, NASAL, BID, # 16 gm, 0 Refill(s), Pharmacy: [facility] Start Date: 11/21/18 Status: OrderedSingulair 10 mg oral tablet 10 mg=1 tab, PO, Bedtime, # 30 tab, 0 Refill(s), Pharmacy: [facility] Start Date: 11/21/18 Status: OrderedVitamin D3 0 Refill(s) Start Date: 11/21/18 Status: Ordered Results No data available for this section [...]
--- NOTE | 2018-12-28 12:47 | RAD REPORT ---
EXAM DESCRIPTION: Humberto Anderson (2 Views)12/28/2018 12:18 pm CLINICAL HISTORY: Cough COMPARISON: 2014 FINDINGS: The lungs appear clear of acute infiltrate. The heart is borderline enlarged IMPRESSION: No acute abnormalities displayed
[2018-12-28 12:58] LABS: Absolute Lymphocytes (CBC) 2.8 K/uL (0.7-4.9); Absolute Monocytes 0.7 K/uL (0.1-1.3); Absolute Neutrophil 5.4 K/uL (1.8-8.0); Basophils % 1.4 % (0-1.3); Eosinophils % 2.3 % (0-4.4); Lymphocytes % 30.6 % (15.3-44.8); MPV 10.3 fL (7.6-11.3); Monocytes % 7.1 % (3.3-12.3); Protime INR 1.14; RBC Red Blood Cell Count 5.56 M/uL (3.86-4.86)
[2018-12-28 13:22] LABS: ALT/SGPT 19 U/L (12-78); AST/SGOT 13 U/L (15-37); Albumin 3.4 g/dL (3.4-5.0); Alkaline Phosphatase 67 U/L (45-117); BUN Blood Urea Nitrogen 20 mg/dL (7-18); Bicarbonate 27 mmol/L (21-32); Bilirubin Direct < 0.1 mg/dL (0-0.2); Bilirubin Total 0.4 mg/dL (0.2-1.0); Glucose Level 80 mg/dL (74-106); Lipase 1965 U/L (73-393); Magnesium 1.9 mg/dL (1.8-2.4); NT PRO-BNP 57 pg/mL (<125); Potassium 3.9 mmol/L (3.5-5.1); Protein, Total 8.1 g/dL (6.4-8.2); Sodium Level 143 mmol/L (136-145); Troponin (Emerg Dept Use Only) < 0.02 ng/mL (0.0-0.045)
--- NOTE | 2018-12-28 14:34 | RAD REPORT ---
EXAM DESCRIPTION: CT - Abdomen Pelvis W Contrast - 12/28/2018 2:08 pm CLINICAL HISTORY: Abdominal pain COMPARISON: 2017 TECHNIQUE: Computed axial tomography of the abdomen pelvis was obtained. 100 cc Isovue-300 was admin istered intravenously. Oral contrast was not requested which limits evaluation of bowel. All CT scans are performed using dose optimization technique as appropriate and may include automated exposure control or mA/KV adjustment according to patient size. FINDINGS: Fatty liver Spleen, pancreas, adrenal and right kidney appear unremarkable. 7.4 centimeter complex left renal cysts without significant change from the prior exam There is no evidence of diverticulitis. Umbilical hernia contains fat. The neck measures 2.4 centimeters Spondylosis involves lumbar spine resulting spinal stenosis IMPRESSION: 7.4 centimeter complex left renal cyst No acute abnormality seen
--- NOTE | 2018-12-28 15:44 | ER ---
Nurse's Notes [facility] Name: Octavia Anderson Age: 68 yrs Sex: Female : 1950 Arrival Date: 12/28/2018 Time: 09:39 Bed 18 Private MD: Jackson Del Rosario Diagnosis: Acute sinusitis;Chest pain, unspecified;Unspecified abdominal pain Presentation: 12/28 09:56 Presenting complaint: Patient states: "I've been having these allergies and I hurt in aj1 my back and I hurt all down my side. I have congestion, I'm in so much pain." Patient also reports chest pain and abdominal pain that started a month ago. Reports productive cough. Denies fever. Transition of care: patient was not received from another setting of care. Onset: The symptoms/episode began/occurred 11/21/2018. Anaphylaxis evaluation, no signs or symptoms of anaphylaxis were noted. Onset of symptoms was November 21, 2018. Risk Assessment: Do you want to hurt yourself or someone else? Patient reports no desire to harm self or others. Initial Sepsis Screen: Does the patient meet any 2 criteria? No. Patient's initial sepsis screen is negative. Does the patient have a suspected source of infection? Yes: Productive cough/pneumonia. Care prior to arrival: None. 09:56 Method Of Arrival: Ambulatory [facility] 09:56 Acuity: MYRNA 3 aj1 Triage Assessment: 10:00 General: Appears in no apparent distress. uncomfortable, Behavior is calm, cooperative, aj1 appropriate for age. Pain: Complains of pain in back, chest and abdomen Pain currently is 9 out of 10 on a pain scale. EENT: Reports nasal congestion nasal discharge. Neuro: Level of Consciousness is awake, alert, obeys commands, Oriented to person, place, time, situation. Cardiovascular: Reports chest pain, Patient's skin is warm and dry. Respiratory: Reports cough that is productive, Airway is patent Respiratory effort is even, unlabored, Respiratory pattern is regular, symmetrical. GI: Reports lower abdominal pain, upper abdominal pain. Historical: - Allergies: 10:00 PENICILLINS; aj1 - Home Meds: 10:00 aspirin 81 mg Oral chew 1 tab once daily [Active]; carvedilol 12.5 mg Oral tab 1 tab aj1 every 12 hours [Active]; cyclobenzaprine 10 mg Oral tab 1 tab 3 times per day for Muscle Spasm [Active]; Edarbyclor 40-12.5 mg Oral tab 1 tab once daily for Hypertension [Active]; Invokana 100 mg Oral tab 1 tab once daily for Type 2 Diabetes Mellitus [Active]; Jardiance Oral [Active]; pantoprazole 40 mg Oral TbEC 1 tab once daily for Gastroesophageal reflux [Active]; simvastatin 40 mg Oral tab 1 tab once daily for Mixed Hyperlipidemia [Active]; trulicity 1.5mg/0.5ml pen injector 1.5 mg once a week for Diabetes [Active]; Vitamin D Oral 5000 unit daily [Active]; - PMHx: 10:00 Arthritis; Diabetes - NIDDM; GERD; Headaches; Hyperlipidemia; Hypertension; aj1 - Immunization history:: Flu vaccine is not up to date. - Social history:: Smoking status: Patient/guardian denies using tobacco. - Ebola Screening: : Patient denies travel to an Ebola-affected area in the 21 days before illness onset. Screenin:56 Abuse screen: Denies threats or abuse. Denies injuries from another. Nutritional hj screening: No deficits noted. Tuberculosis screening: No symptoms or risk factors identified. Fall Risk None identified. Assessment: 09:56 Respiratory: Airway is patent Respiratory effort is even, Respiratory pattern is hj regular, symmetrical, Breath sounds are clear. 10:30 Reassessment: Patient and/or family updated on plan of care and expected duration. Pain hj level reassessed. Patient is alert, oriented x 3, equal unlabored respirations, skin warm/dry/pink. 11:30 Reassessment: Patient and/or family updated on plan of care and expected duration. Pain hj level reassessed. Patient is alert, oriented x 3, equal unlabored respirations, skin warm/dry/pink. awaiting results and POC;. 12:30 Reassessment: Patient and/or family updated on plan of care and expected duration. Pain hj level reassessed. Patient is alert, oriented x 3, equal unlabored respirations, skin warm/dry/pink. Patient states feeling better. 13:30 Reassessment: Patient and/or family updated on plan of care and expected duration. Pain hj level reassessed. Patient is alert, oriented x 3, equal unlabored respirations, skin warm/dry/pink. Patient states symptoms have improved. 14:30 Reassessment: Patient and/or family updated on plan of care and expected duration. Pain hj level reassessed. Patient is alert, oriented x 3, equal unlabored respirations, skin warm/dry/pink. awaiting POC;. 15:30 Reassessment: Patient and/or family updated on plan of care and expected duration. Pain hj level reassessed. Patient is alert, oriented x 3, equal unlabored respirations, skin warm/dry/pink. 16:22 Reassessment: Patient and/or family updated on plan of care and expected duration. Pain hj level reassessed. Patient is alert, oriented x 3, equal unlabored respirations, skin warm/dry/pink. for D/C;. Vital Signs: 10:00 BP 115 / 75; Pulse 78; Resp 18; Temp 98.2(TE); Pulse Ox 100% on R/A; Weight 93.89 kg aj1 (R); Height 5 ft. 4 in. (162.56 cm) (R); Pain 9/10; 11:30 BP 120 / 74; Pulse 75; Resp 18; Pulse Ox 98% on R/A; hj 12:30 BP 122 / 70; Pulse 76; Resp 18; Pulse Ox 99% on R/A; hj 13:15 BP 125 / 73; Pulse 75; Resp 18; Pulse Ox 100% on R/A; hj 15:30 BP 126 / 74; Pulse 76; Resp 18; Pulse Ox 100% on R/A; hj 16:22 BP 122 / 75; Pulse 74; Resp 18; Pulse Ox 100% on R/A; hj 10:00 Body Mass Index 35.53 (93.89 kg, 162.56 cm) aj1 ED Course: 09:39 Patient arrived in ED. as 09:41 Jackson Del Rosario DO is Private Physician. as 09:56 Patient has correct armband on for positive identification. Placed in gown. Bed in low hj position. Call light in reach. Side rails up X 1. Adult w/ patient. 09:59 Triage completed. aj1 10:00 Arm band placed on Patient placed in waiting room. aj1 10:23 EKG done, by floor tech. reviewed by Ross Mclean MD. at1 11:30 Gary Harrison RN is Primary Nurse. hj 11:32 Dieter Holland NP is PHCP. pm1 11:32 Ross Mclean MD is Attending Physician. pm1 12:18 Chest Pa And Lat (2 Views) XRAY In Process Unspecified. EDMS 12:30 Initial lab(s) drawn, by me, sent to lab. Inserted saline lock: 22 gauge in left hj antecubital area, using aseptic technique. Blood collected. 14:08 CT Abd/Pelvis - W/Contrast: IV contrast only In Process Unspecified. EDMS 16:23 No provider procedures requiring assistance completed. IV discontinued, intact, hj bleeding controlled, No redness/swelling at site. Pressure dressing applied. Administered Medications: 16:02 Drug: Zithromax 500 mg Route: PO; hj 16:14 Follow up: Response: No adverse reaction Outcome: 15:43 Discharge ordered by MD. pm1 16:23 Discharged to home ambulatory, with family. hj 16:23 Condition: stable 16:23 Discharge instructions given to patient, family, Instructed on discharge instructions, follow up and referral plans. medication usage, Demonstrated understanding of instructions, follow-up care, medications, Prescriptions given X 1. 16:23 Patient left the ED. Signatures: Dispatcher [employer] EDCT Pamela Casiano RN RN aj1 Anupama Maloney Amanda, manager clinical research EKG Tat1 Gary Harrison RN RN hj Marinas, Patrick, NP TRIAL CONSULTANT pm1
--- NOTE | 2018-12-28 15:44 | EDPHYS ---
Physician Documentation [facility] Name: Octavia Anderson Age: 68 yrs Sex: Female : 1950 Arrival Date: 12/28/2018 Time: 09:39 Bed 18 Private MD: Jackson Del Rosario ED Physician Ross Mclean HPI: 12/28 10:36 This 68 yrs old Black Female presents to ER via Ambulatory with complaints of Allergy pm1 Symptoms, Back Pain, Chest Wall Pain. 10:36 The patient presents with sinus congestion for the past 1 month. Has been seen by two pm1 doctors for the same complaint and was given Flonase. No prior antibiotics. Associated signs and symptoms: Pertinent positives: cough, Pertinent negatives: ear ache, fever, shortness of breath. Severity of symptoms: in the emergency department the symptoms are unchanged. Patient is also complaining of back and abdominal pain for the past 1 month. Patient currently denies any chest pain. Patient with chest pain with coughing due to post nasal drainage. Historical: - Allergies: 10:00 PENICILLINS; aj1 - Home Meds: 10:00 aspirin 81 mg Oral chew 1 tab once daily [Active]; carvedilol 12.5 mg Oral tab 1 tab aj1 every 12 hours [Active]; cyclobenzaprine 10 mg Oral tab 1 tab 3 times per day for Muscle Spasm [Active]; Edarbyclor 40-12.5 mg Oral tab 1 tab once daily for Hypertension [Active]; Invokana 100 mg Oral tab 1 tab once daily for Type 2 Diabetes Mellitus [Active]; Jardiance Oral [Active]; pantoprazole 40 mg Oral TbEC 1 tab once daily for Gastroesophageal reflux [Active]; simvastatin 40 mg Oral tab 1 tab once daily for Mixed Hyperlipidemia [Active]; trulicity 1.5mg/0.5ml pen injector 1.5 mg once a week for Diabetes [Active]; Vitamin D Oral 5000 unit daily [Active]; - PMHx: 10:00 Arthritis; Diabetes - NIDDM; GERD; Headaches; Hyperlipidemia; Hypertension; aj1 - Immunization history:: Flu vaccine is not up to date. - Social history:: Smoking status: Patient/guardian denies using tobacco. - Ebola Screening: : Patient denies travel to an Ebola-affected area in the 21 days before illness onset. ROS: 10:36 Constitutional: Negative for fever, chills, and weight loss, Eyes: Negative for injury, pm1 pain, redness, and discharge, Neck: Negative for injury, pain, and swelling. 10:36 Cardiovascular: Negative for chest pain, palpitations, and edema. 10:36 Back: Negative for injury and pain, : Negative for injury, bleeding, discharge, and swelling, MS/Extremity: Negative for injury and deformity, Skin: Negative for injury, rash, and discoloration, Neuro: Negative for headache, weakness, numbness, tingling, and seizure. 10:36 ENT: Positive for rhinorrhea, sinus congestion, sinus pain, Negative for drainage from ear(s), ear pain. 10:36 Respiratory: Positive for cough, Negative for shortness of breath, sputum production, wheezing. 10:36 Abdomen/GI: Positive for abdominal pain, Negative for nausea, vomiting, and diarrhea. Exam: 10:11 ECG was reviewed by the Attending Physician. kdr 10:36 Constitutional: This is a well developed, well nourished patient who is awake, alert, pm1 and in no acute distress. Head/Face: Normocephalic, atraumatic. Eyes: Pupils equal round and reactive to light, extra-ocular motions intact. Lids and lashes normal. Conjunctiva and sclera are non-icteric and not injected. Cornea within normal limits. Periorbital areas with no swelling, redness, or edema. ENT: Nares patent. No nasal discharge, no septal abnormalities noted. Tympanic membranes are normal and external auditory canals are clear. Oropharynx with no redness, swelling, or masses, exudates, or evidence of obstruction, uvula midline. Mucous membranes moist. Neck: Trachea midline, no thyromegaly or masses palpated, and no cervical lymphadenopathy. Supple, full range of motion without nuchal rigidity, or vertebral point tenderness. No Meningismus. Chest/axilla: Normal chest wall appearance and motion. Nontender with no deformity. No lesions are appreciated. Cardiovascular: Regular rate and rhythm with a normal S1 and S2. No gallops, murmurs, or rubs. Normal PMI, no JVD. No pulse deficits. Respiratory: Lungs have equal breath sounds bilaterally, clear to auscultation and percussion. No rales, rhonchi or wheezes noted. No increased work of breathing, no retractions or nasal flaring. Abdomen/GI: Soft, non-tender, with normal bowel sounds. No distension or tympany. No guarding or rebound. No evidence of tenderness throughout. Back: No spinal tenderness. No costovertebral tenderness. Full range of motion. Skin: Warm, dry with normal turgor. Normal color with no rashes, no lesions, and no evidence of cellulitis. MS/ Extremity: Pulses equal, no cyanosis. Neurovascular intact. Full, normal range of motion. 10:36 Neuro: Orientation: is normal, Motor: is normal, moves all fours, Sensation: is normal, no obvious gross deficits. Vital Signs: 10:00 BP 115 / 75; Pulse 78; Resp 18; Temp 98.2(TE); Pulse Ox 100% on R/A; Weight 93.89 kg [facility] (R); Height 5 ft. 4 in. (162.56 cm) (R); Pain 9/10; 11:30 BP 120 / 74; Pulse 75; Resp 18; Pulse Ox 98% on R/A; hj 12:30 BP 122 / 70; Pulse 76; Resp 18; Pulse Ox 99% on R/A; hj 13:15 BP 125 / 73; Pulse 75; Resp 18; Pulse Ox 100% on R/A; hj 15:30 BP 126 / 74; Pulse 76; Resp 18; Pulse Ox 100% on R/A; hj 16:22 BP 122 / 75; Pulse 74; Resp 18; Pulse Ox 100% on R/A; hj 10:00 Body Mass Index 35.53 (93.89 kg, 162.56 cm) [facility] MDM: 11:35 Patient medically screened. pm1 12:05 Data reviewed: vital signs. Data interpreted: Pulse oximetry: on room air is 100 %. pm1 Interpretation: normal. 15:42 Counseling: I had a detailed discussion with the patient and/or guardian regarding: the pm1 historical points, exam findings, and any diagnostic results supporting the discharge/admit diagnosis, lab results, radiology results, the need for outpatient follow up, to return to the emergency department if symptoms worsen or persist or if there are any questions or concerns that arise at home. 15:50 ED course: Patient eating fast food in the room without any difficulty. Patient without pm1 any tenderness to abdomen on exam. CT negative for pancreatitis even though lipase is elevated. Acute pancreatitis is not present clinically therefore she does not meet admission criteria. Patient educated on liquid diet and discharged to follow up with her PCP. 16:00 ED course: Patient requesting first dosage of antibiotic for her sinusitis. pm12/28 12:06 Order name: Basic Metabolic Panel; Complete Time: 13:37 pm12/28 12:06 Order name: CBC with Diff; Complete Time: 13:14 pm12/28 12:06 Order name: LFT's; Complete Time: 13:37 pm12/28 12:06 Order name: Magnesium; Complete Time: 13:37 pm12/28 12:06 Order name: NT PRO-BNP; Complete Time: 13:37 pm12/28 12:06 Order name: PT-INR; Complete Time: 13:14 pm12/28 10:04 Order name: EKG; Complete Time: 10:04 12/28 10:04 Order name: EKG - Nurse/Tech; Complete Time: 11:07 12/28 11:08 Order name: Chest Pa And Lat (2 Views) XRAY; Complete Time: 13:14 aj12/28 12:06 Order name: Troponin (emerg Dept Use Only); Complete Time: 13:37 pm12/28 12:06 Order name: Lipase; Complete Time: 13:37 pm12/28 13:39 Order name: CT Abd/Pelvis - W/Contrast: IV contrast only; Complete Time: 14:51 pm12/28 12:06 Order name: Cardiac monitoring; Complete Time: 12:33 pm12/28 12:06 Order name: IV Saline Lock; Complete Time: 12:33 pm12/28 12:06 Order name: Labs collected and sent; Complete Time: 12:33 pm12/28 12:06 Order name: O2 Per Protocol; Complete Time: 12:33 pm12/28 12:06 Order name: O2 Sat Monitoring; Complete Time: 12:33 pm EC:11 Rate is 77 beats/min. Rhythm is regular, Normal Sinus Rhythm with No ectopy. [place] kdr interval is normal. QRS interval is normal. QT interval is normal. No Q waves. T waves are Normal. Clinical impression: NSR w/ Non-specific ST/T Changes. Administered Medications: 16:02 Drug: Zithromax 500 mg Route: PO; hj 16:14 Follow up: Response: No adverse reaction hj Disposition: 12/28/18 15:43 Discharged to Home. Impression: Acute sinusitis, Chest pain, unspecified, Unspecified abdominal pain. - Condition is Stable. - Discharge Instructions: Abdominal Pain, Adult, Nonspecific Chest Pain, Sinusitis, Adult. - Prescriptions for Zithromax 500 mg Oral Tablet - take 1 tablet by ORAL route once daily for 3 days; 3 tablet. - Medication Reconciliation Form, Thank You Letter, Antibiotic Education, Prescription Opioid Use form. - Follow up: Emergency Department; When: As needed; Reason: Worsening of condition. Follow up: Private Physician; When: 2 - 3 days; Reason: Recheck today's complaints, Continuance of care, Re-evaluation by your physician. - Problem is new. - Symptoms have improved. Addendum: 01/02/2019 10:33 Co-signature as Attending Physician, Ross Mclean MD I agree with the assessment and k dr plan of care. Signatures: Dispatcher [employer] [facility] Pamela Casiano RN RN aj1 Ross Mclean MD MD [facility] Priscila Hooper RN RN ss Gary Harrison RN RN Dieter Holland, GRICELDA INSTRUCTIONAL SUPPORT ASSISTANT pm1 Corrections: (The following items were deleted from the chart) 12/28 12:18 12:07 Chest Single View+RAD.RAD.BRZ ordered. [facility] 15:47 15:43 12/28/2018 15:43 Discharged to Home. Impression: Acute sinusitis; Chest pain, pm1 unspecified. Condition is Stable. Forms are Medication Reconciliation Form, Thank You Letter, Antibiotic Education, Prescription Opioid Use. Follow up: Emergency Department; When: As needed; Reason: Worsening of condition. Follow up: Private Physician; When: 2 - 3 days; Reason: Recheck today's complaints, Continuance of care, Re-evaluation by your physician. Problem is new. Symptoms have improved. pm1 16:23 15:47 12/28/2018 15:43 Discharged to Home. Impression: Acute sinusitis; Chest pain, hj unspecified; Unspecified abdominal pain. Condition is Stable. Discharge Instructions: Nonspecific Chest Pain, Sinusitis, Adult, Abdominal Pain, Adult. Forms are Medication Reconciliation Form, Thank You Letter, Antibiotic Education, Prescription Opioid Use. Follow up: Emergency Department; When: As needed; Reason: Worsening of condition. Follow up: Private Physician; When: 2 - 3 days; Reason: Recheck today's complaints, Continuance of care, Re-evaluation by your physician. Problem is new. Symptoms have improved. pm1
[2018-12-28] MEDS ORDERED: AZITHROMYCIN 250 MG TAB ONE (16:21)
[2018-12-28 17:31] VITALS: TEMP 98.2
[2018-12-28 17:34] VITALS: O2SAT 100
[2018-12-28 17:36] VITALS: BP 122/75
--- NOTE | 2018-12-29 06:45 | EKG ---
Test Date: 2018-12-28 Test Time: 10:06:36 Game Manager: BERNICE MEASUREMENT RESULTS: Intervals: Rate: 77 CT: 148 QRSD: 92 QT: 366 QTc: 414 Pierson: P: 59 CT: 148 QRS: -13 T: 24 INTERPRETIVE STATEMENTS: Normal sinus rhythm Cannot rule out Anterior infarct, age undetermined Abnormal ECG Compared to ECG 10/04/2013 07:35:12 Myocardial infarct finding now present Sinus bradycardia no longer present Left ventricular hypertrophy no longer present Electronically Signed On 12-29-18 06:42:48 CDT by Carlos Judd
== END 2018-12-28 16:23 | disposition home or self-care (01) ==
LOC: ER 09:38
DX: J01.90 Acute sinusitis, unspecified (principal); R07.9 Chest pain, unspecified; R10.9 Unspecified abdominal pain; I10 Essential (primary) hypertension; E78.5 Hyperlipidemia, unspecified; E11.9 Type 2 diabetes mellitus without complications; Z79.4 Long term (current) use of insulin; Z79.82 Long term (current) use of aspirin; Z88.0 Allergy status to penicillin
CPT/HCPCS: 93005; 85025; 80048; 36415; 83735; 85610; 80076; 84484; 83690; 83880; 74177; 71046; 99284; Q9967

== ENCOUNTER 2019-02-14 10:36 | Emergency (ER) | payer OTHER ==
--- OUTSIDE RECORDS SUMMARY | 2019-02-14 10:43 | XMS REPORT | Summary of Care ---
:1950 Author Organization [facility] Address Unavailable , Encounter HQ Tiffany(MICHELE) [id number] Date(s): 11/27/18 - 12/26/18 [facility] Discharge Disposition: Home or Self Care Attending Physician: Jackson Del Rosario DO Vital Signs No data available for this section Problem List Condition Effective Dates Status Health Status Informant Diabetes mellitus type 2(Confirmed)1 Active Morbid obesity(Confirmed) Active 1Automatically added by Discern Expert with order of Add Problem Diabetes Type II on August 23, 2018 10:35:16 DIRECTOR OF TRAUMA with order ID: [id number] entered by Yudi Lew. Allergies, Adverse Reactions, [...]
--- OUTSIDE RECORDS SUMMARY | 2019-02-14 10:43 | XMS REPORT | Continuity of Care Document ---
:1950 Author Organization Interface Problems Problem Status Onset Classification Date Comments Source Date Reported RT SIDE Active 10/25/19 [facility]; 19 [facility] RT SIDE Active 09/20/19 [facility] 19 [facility] Diabetes Active Problem 12/28/2018 Automatically [facility] mellitus type added by Radha [facility] 2<sup>1</sup> Expert with Bone & order of Add Joint, Problem Diabetes Medical Type II on Group August 23, 2018 10:35:16 PATCH MACHINE OPERATOR with order ID: [id number] entered by Ruiz Lew. Morbid Active Problem 12/28/2018 [facility] obesity [facility] Medications Medication Details Route Status Patient Ordering Order Source Instructions Provider Date Fluticasone 1 spray, Active propionate 0.05 NASAL, BID, 019 Medical MG/ACTUAT Metered # 16 gm, 0 Group Dose Nasal Rotan Refill(s), [Flonase] Pharmacy: [facility] montelukast 10 MG 10 mg=1 Active Oral Tablet tab, PO, 019 Medical [Singulair] Bedtime, # Group 30 tab, 0 Refill(s), Pharmacy: [facility] Ipratropium 2 spray, Active Mcclusky 0.042 NASAL, TID, 019 Medical MG/ACTUAT Metered PRN for Group Dose Nasal Rotan cold [Atrovent] symptoms, Rotan in both nostrils, X 30 day, # 1 ea, 0 Refill(s), Pharmacy: [facility] 546 Vitamin D3 0 Refill(s) Active 019 Medical Group benzonatate 100 100 mg=1 Active MH MG Oral Capsule cap, PO, 018 Medical [Tessalon Perles] Bedtime, Group prn cough, # 15 cap, 0 Refill(s), Pharmacy: [facility] {6 (Azithromycin See No Longer MH 250 MG Oral Instruction Active 018 Medical Tablet s, Take 2 Group [Zithromax]) } tablets by Pack [Z-PAKS] mouth the first day then 1 tablet by mouth days 2-5., X 5 day, # 6 tab, 0 Refill(s), Pharmacy: [facility] 546 simvastatin 40 mg [...] Tablet [Edarbyclor 40/12.5] Hydrocortisone 25 1 appl, PA, No Longer MH MG/ML Topical BID, X 14 Active 018 Medical Cream [Anusol HC] day, # 30 Group gm, 0 Refill(s), Pharmacy: [facility] 546 Aspirin 0 Refill(s) [...] Number For Provider Date Date Visit Outpatient [id number] HEATHER 09/14 [facility] Outpatient [id number] Heather 09/14 09/15 Internal [facility] Outpatient [id number] RUIZ 10/21 [facility] Outpatient [id number] Ruiz 10/21 10/22 Family [facility] Outpatient [id number] RUIZ 08/23 [facility] OP Therapy [id number] Jackson09/25 [facility] Aglieco /2018 [facility] OP Therapy [id number] Jackson 10/25 11/24 [facility] [place] /2018 [facility] Outpatient [id number] THERESA 11/21 [facility] GARCIA /2018 [facility] Outpatient [id number] Theresa 11/21 11/22 [facility] Garcia /2018 [facility]ian [facility] OP Therapy [id number] Jackson 11/27 12/27 [facility] [place] /2018 [facility] Procedures Procedure Code Date Perfomer Comments Source Hysterectomy [id number] [facility] Hysterectomy [id number] Medical Group
[2019-02-14 11:31] LABS: Absolute Monocytes 0.5 K/uL (0.1-1.3); Absolute Neutrophil 8.1 K/uL (1.8-8.0); Basophils % 0.9 % (0-1.3); Eosinophils % 1.6 % (0-4.4); Hematocrit 40.2 % (36.0-45.0); Lymphocytes % 18.2 % (15.3-44.8); MPV 9.5 fL (7.6-11.3); Monocytes % 4.5 % (3.3-12.3); Protime INR 1.04; RBC Red Blood Cell Count 5.45 M/uL (3.86-4.86)
--- NOTE | 2019-02-14 11:33 | RAD REPORT ---
EXAM DESCRIPTION: CT - Head Brain Wo Cont - 02/14/2019 11:24 am CLINICAL HISTORY: Nausea, dizziness, headache COMPARISON: November 2015 TECHNIQUE: Axial 5 mm thick images of the head were obtained without IV contrast. All CT scans are performed using dose optimization technique as appropriate and may include automated exposure control or mA/KV adjustment according to patient size. FINDINGS: No intracranial hemorrhage, mass, edema or shift of mid-line structures. No acute cortical based infarction. No cortical edema or sulcal effacement. Atrophy and chronic ischemic changes are p resent but relatively mild. No measurable progression from 2016. No abnormal extra-axial fluid collec tions. Ventricles are normal. Mastoid air cells and visualized portions of the paranasal sinuses are clear. No acute bony findings. IMPRESSION: Negative noncontrast CT head for acute finding. No significant change from November 2015.
--- NOTE | 2019-02-14 11:37 | RAD REPORT ---
EXAM DESCRIPTION: CT - Stone Protocol - 02/14/2019 11:24 am CLINICAL HISTORY: Abdominal pain COMPARISON: CT imaging December 2018 TECHNIQUE: Axial 5 mm thick images were obtained without oral or IV contrast. The [id number] span s the entirety of the system including uppermost abdomen and lung bases. All CT scans are performed using dose optimization technique as appropriate and may include automated exposure control or mA/KV adjustment according to patient size. FINDINGS: No hydronephrosis is present and no obstructing ureteral calculi. Isodense masses and pyel onephritis are not excluded. Approximately 7.5 centimeter cyst lower pole left kidney is present. Thi s has septation and a few rim calcifications. This complex cysts is not clearly different from December. No urinary bladder suspicious finding. No significant adrenal finding. Imaged portions of the liver, spleen and pancreas show no suspicious findings on non-contrast imaging . No gallbladder or biliary tree abnormality identified. No gastric dilatation or wall thickening. A small hiatal hernia is present. No acute small bowel find ing. Moderate stool volume is present in the right-side of the colon. There is a large amount of stoo l distending the rectum and distal sigmoid colon. No mass or acute colon process otherwise noted. No mass or bulky lymphadenopathy. Fat only umbilical hernia has not changed. No free air, free fluid or inflammatory stranding. No significant bony abnormality. IMPRESSION: Large stool volume distending the rectum and distal sigmoid colon. No acute GI process s een. No acute finding. Patient has a complex lower pole left renal cyst not clearly different from Apri l. Isodense masses and pyelonephritis are not excluded on stone protocol technique.
--- NOTE | 2019-02-14 11:43 | RAD REPORT ---
EXAM DESCRIPTION: Humberto Single View02/14/2019 11:36 am CLINICAL HISTORY: Chest pain COMPARISON: December 2018 FINDINGS: The lungs appear clear of acute infiltrate. The heart is mildly enlarged IMPRESSION: No acute abnormalities displayed
[2019-02-14 11:44] LABS: ALT/SGPT 21 U/L (12-78); AST/SGOT 17 U/L (15-37); Albumin 3.5 g/dL (3.4-5.0); Alkaline Phosphatase 66 U/L (45-117); BUN Blood Urea Nitrogen 24 mg/dL (7-18); Bicarbonate 21 mmol/L (21-32); Bilirubin Direct < 0.1 mg/dL (0-0.2); Bilirubin Total 0.5 mg/dL (0.2-1.0); Glucose Level 177 mg/dL (74-106); Magnesium 2.1 mg/dL (1.8-2.4); NT PRO-BNP 100 pg/mL (<125); Potassium 3.8 mmol/L (3.5-5.1); Protein, Total 7.7 g/dL (6.4-8.2); Sodium Level 142 mmol/L (136-145); Troponin (Emerg Dept Use Only) < 0.02 ng/mL (0.0-0.045)
[2019-02-14 11:51] LABS: Blood Morphology Comment NOT SEEN (NOT SEEN); Platelet Estimate ADEQ
[2019-02-14] MEDS ORDERED: ONDANSETRON 4 MG/2 ML VIAL ONE (12:05)
[2019-02-14] MEDS ORDERED: MECLIZINE HCL 12.5 MG TAB ONE (12:05)
[2019-02-14] MEDS ORDERED: NA CHLORIDE 0.9% 1,000 ML ONE (13:36)
--- NOTE | 2019-02-14 14:04 | EKG ---
Test Date: 2019-02-14 Test Time: 12:00:34 Reinsurance Clerk: PATRICIA MEASUREMENT RESULTS: Intervals: Rate: 63 VA: 168 QRSD: 100 QT: 416 QTc: 425 [place]: P: 49 VA: 168 QRS: -9 T: 10 INTERPRETIVE STATEMENTS: Normal sinus rhythm with sinus arrhythmia Minimal voltage criteria for LVH, may be normal variant Borderline ECG Compared to ECG 12/28/2018 10:06:36 Left ventricular hypertrophy now present Myocardial infarct finding no longer present Electronically Signed On 02-14-19 14:03:55 CDT by Charlie Clemons
--- NOTE | 2019-02-14 14:15 | ER ---
Nurse's Notes [facility] Name: Octavia Anderson Age: 68 yrs Sex: Female : 1950 Arrival Date: 02/14/2019 Time: 10:42 Bed 16 Private MD: Diagnosis: Weakness;Dehydration Presentation: 02/14 10:51 Presenting complaint: Patient states: Patient reports dizziness and nausea that started ae4 this morning when she woke up. Transition of care: patient was not received from another setting of care. Onset of symptoms was February 14, 2019 at 08:00. Risk Assessment: Do you want to hurt yourself or someone else? Patient reports no desire to harm self or others. Care prior to arrival: EMS attempted 2 IV stick to no avail. 10:51 Method Of Arrival: EMS: [facility] ae4 10:51 Acuity: MYRNA 3 ae4 12:47 Initial Sepsis Screen: Does the patient meet any 2 criteria? No. Patient's initial ae4 sepsis screen is negative. Does the patient have a suspected source of infection? No. Patient's initial sepsis screen is negative. Triage Assessment: 11:20 General: Appears uncomfortable, obese, unkempt, Behavior is cooperative, anxious. Pain: ae4 Complains of pain in abdomen Noted to be moaning. Neuro: Reports dizziness, since upon waking this morning at approximately 0800. GI: Reports lower abdominal pain, nausea. Historical: - Allergies: 10:51 PENICILLINS; ae4 - Home Meds: 14:39 aspirin 81 mg Oral chew 1 tab once daily [Active]; carvedilol 12.5 mg Oral tab 1 tab ae4 every 12 hours [Active]; cyclobenzaprine 10 mg Oral tab 1 tab 3 times per day for Muscle Spasm [Active]; Edarbyclor 40-12.5 mg Oral tab 1 tab once daily for Hypertension [Active]; Invokana 100 mg Oral tab 1 tab once daily for Type 2 Diabetes Mellitus [Active]; Jardiance Oral [Active]; pantoprazole 40 mg Oral TbEC 1 tab once daily for Gastroesophageal reflux [Active]; simvastatin 40 mg Oral tab 1 tab once daily for Mixed Hyperlipidemia [Active]; trulicity 1.5mg/0.5ml pen injector 1.5 mg once a week for Diabetes [Active]; Vitamin D Oral 5000 unit daily [Active]; - PMHx: 10:51 Arthritis; Diabetes - NIDDM; GERD; Headaches; Hyperlipidemia; Hypertension; ae4 - Immunization history:: Adult Immunizations up to date. - Ebola Screening: : No symptoms or risks identified at this time. - Social history:: Smoking status: Patient/guardian denies using tobacco. Screenin:45 Abuse screen: Denies threats or abuse. Nutritional screening: No deficits noted. ae4 Tuberculosis screening: No symptoms or risk factors identified. Fall Risk No fall in past 12 months (0 pts). Secondary diagnosis (15 points) Patient report dizziness... Assessment: 11:21 General: Appears uncomfortable, obese, unkempt, Behavior is cooperative, anxious. Pain: ae4 Complains of pain in abdomen Noted to be moaning. Neuro: Level of Consciousness is awake, alert, obeys commands, Oriented to person, place, situation. Neuro: Oriented to time, Reports dizziness, since upon waking this morning. Cardiovascular: Heart tones S1 S2 present Skin is cool and dry. Respiratory: Airway is patent Respiratory effort is even, unlabored, shallow, Respiratory pattern is regular, symmetrical, Breath sounds are clear bilaterally. GI: Abdomen is round obese, Bowel sounds present X 4 quads. : No signs and/or symptoms were reported regarding the genitourinary system. EENT: No signs and/or symptoms were reported regarding the EENT system. Derm: Skin is normal. Musculoskeletal: Reports Generalized weakness. 12:16 Reassessment: Patient appears in no apparent distress at this time. Patient ambulated ae4 with assistance, tolerated well, denies SOB, denies nausea and dizziness while ambulating. Patient states feeling better. 12:45 Reassessment: Patient up to restroom to urinate and provide urine sample. ae4 13:42 Reassessment: Patient appears in no apparent distress at this time. IV fluids infusing. ae4 Patient denies pain at this time. Patient states feeling better. Patient states symptoms have improved. Vital Signs: 10:44 BP 139 / 62; Pulse 79; Resp 19; Temp 97.7(O); Pulse Ox 99% on R/A; ae4 11:39 BP 132 / 71; Pulse 71; Resp 15; Pulse Ox 100% on R/A; ae4 11:56 Weight 98.43 kg (R); ae4 13:43 BP 129 / 70; Pulse 64; Resp 17; Pulse Ox 100% on R/A; ae4 14:47 BP 117 / 60; Pulse 68; Resp 20; Pulse Ox 99% on R/A; ae4 ED Course: 10:42 Patient arrived in ED. ae4 10:44 Dale Lew, RN is Primary Nurse. ae4 10:51 [facility] 10:51 Gregor Mooney MD is Attending Physician. [facility] 10:53 Triage completed. ae4 10:54 Arm band placed on right wrist. ae4 10:54 Placed in gown. Bed in low position. Call light in reach. Side rails up X2. Cardiac ae4 monitor on. Pulse ox on. NIBP on. 11:08 Inserted saline lock: 20 gauge in right antecubital area, using aseptic technique. ae4 Blood collected. 11:29 CT Head Brain wo Cont In Process Unspecified. EDMS 11:29 CT Stone Protocol In Process Unspecified. EDMS 11:39 XRAY Chest (1 view) In Process Unspecified. EDMS 12:29 EKG done, by aviation technician. reviewed by Edmundo GIRON. dt2 14:39 No provider procedures requiring assistance completed. IV discontinued, intact, ae4 bleeding controlled, No redness/swelling at site. Pressure dressing applied. Administered Medications: 11:47 Drug: Zofran 4 mg Route: IVP; Site: right antecubital; ae4 12:38 Follow up: Response: Nausea is decreased ae4 11:50 Drug: Meclizine 25 mg Route: PO; ae4 12:42 Follow up: Response: Other; dizziness decreased ae4 13:26 Drug: NS 0.9% 1000 ml Route: IV; Rate: 1 bolus; Site: right antecubital; ae4 14:47 Follow up: IV Status: Completed infusion ae4 Point of Care Testing: Blood Glucose: 10:44 Blood Glucose: 176 mg/dL; ae4 Ranges: Intake: Outcome: 14:14 Discharge ordered by . michelle 14:47 Patient left the ED. ae4 Signatures: Dispatcher [employer] EDMS Edmundo Orosco PA PA Monica Mcgee dt2 Dale Lew, RN RN ae4
--- NOTE | 2019-02-14 14:16 | EDPHYS ---
Physician Documentation [facility] Name: Octavia Anderson Age: 68 yrs Sex: Female : 1950 Arrival Date: 02/14/2019 Time: 10:42 Bed 16 Private MD: ED Physician Gregor Mooney HPI: 02/14 10:54 This 68 yrs old Black Female presents to ER via EMS with complaints of Dizziness, jmm Nausea/Vomiting. 10:54 The patient presents with generalized weakness, lightheadedness. Onset: The jmm symptoms/episode began/occurred just prior to arrival, today. Context: occurred while the patient was standing. Modifying factors: The symptoms are alleviated by holding head still. This is a 68 year old female with a history of arthritis, DM, GERD, HLP that presents to the ED with complaints of lightheadedness, nausea beginning while standing up and switching her TV on. Patient states she began to sweat. Patient complains of mild abdominal pain. Denies chest pain. Denies unilateral weakness. Denies slurred speech. . Historical: - Allergies: 10:51 PENICILLINS; ae4 - Home Meds: 14:39 aspirin 81 mg Oral chew 1 tab once daily [Active]; carvedilol 12.5 mg Oral tab 1 tab ae4 every 12 hours [Active]; cyclobenzaprine 10 mg Oral tab 1 tab 3 times per day for Muscle Spasm [Active]; Edarbyclor 40-12.5 mg Oral tab 1 tab once daily for Hypertension [Active]; Invokana 100 mg Oral tab 1 tab once daily for Type 2 Diabetes Mellitus [Active]; Jardiance Oral [Active]; pantoprazole 40 mg Oral TbEC 1 tab once daily for Gastroesophageal reflux [Active]; simvastatin 40 mg Oral tab 1 tab once daily for Mixed Hyperlipidemia [Active]; trulicity 1.5mg/0.5ml pen injector 1.5 mg once a week for Diabetes [Active]; Vitamin D Oral 5000 unit daily [Active]; - PMHx: 10:51 Arthritis; Diabetes - NIDDM; GERD; Headaches; Hyperlipidemia; Hypertension; ae4 - Immunization history:: Adult Immunizations up to date. - Ebola Screening: : No symptoms or risks identified at this time. - Social history:: Smoking status: Patient/guardian denies using tobacco. ROS: 10:54 Constitutional: Negative for fever, chills, and weight loss, Cardiovascular: Negative jm for chest pain, palpitations, and edema, Respiratory: Negative for shortness of breath, cough, wheezing, and pleuritic chest pain. 10:54 Back: Negative for injury and pain, : Negative for injury, bleeding, discharge, and swelling, MS/Extremity: Negative for injury and deformity. 10:54 Abdomen/GI: Positive for abdominal pain, nausea. 10:54 Neuro: Positive for weakness. 10:54 All other systems are negative. Exam: 10:54 Head/Face: atraumatic. Eyes: EOMI, no conjunctival erythema appreciated ENT: Moist jmm Mucus Membranes Neck: Trachea midline, Supple Chest/axilla: Normal chest wall appearance and motion. Cardiovascular: Regular rate and rhythm. No edema appreciated Respiratory: Normal respirations, no respiratory distress appreciated 10:54 Constitutional: The patient appears in no acute distress, alert, awake. 10:54 Abdomen/GI: Inspection: obese Bowel sounds: normal, Palpation: soft, mild abdominal tenderness, in the right upper quadrant and left upper quadrant. 10:54 Back: ROM is normal. 10:54 Musculoskeletal/extremity: ROM: intact in all extremities. 10:54 Skin: Appearance: Color: normal in color. 10:54 Neuro: Orientation: is normal, Mentation: is normal, Memory: is normal. 10:54 Psych: Behavior/mood is pleasant, cooperative. Vital Signs: 10:44 BP 139 / 62; Pulse 79; Resp 19; Temp 97.7(O); Pulse Ox 99% on R/A; ae4 11:39 BP 132 / 71; Pulse 71; Resp 15; Pulse Ox 100% on R/A; ae4 11:56 Weight 98.43 kg (R); ae4 13:43 BP 129 / 70; Pulse 64; Resp 17; Pulse Ox 100% on R/A; ae4 14:47 BP 117 / 60; Pulse 68; Resp 20; Pulse Ox 99% on R/A; ae4 MDM: 10:54 Patient medically screened. [facility] 13:30 Data reviewed: vital signs, nurses notes. [facility] 13:30 Counseling: I had a detailed discussion with the patient and/or guardian regarding: the [facility] historical points, exam findings, and any diagnostic results supporting the discharge/admit diagnosis, lab results, radiology results, the need for outpatient follow up. ED course: Symptoms appear due to dehydration. Patient states feeling much better in the ED. Patient is able to ambulate without difficulty. Patient is advised to follow up with her pcp and otherwise given strict return precautions. Patient understood and agrees with the plan of care. . 02/14 11:01 Order name: Basic Metabolic Panel; Complete Time: 11:47 [facility] 02/14 11:01 Order name: CBC with Diff; Complete Time: 11:57 [facility] 02/14 11:01 Order name: LFT's; Complete Time: 11:47 [facility] 02/14 11:01 Order name: Magnesium; Complete Time: 11:47 [facility] 02/14 11:01 Order name: NT PRO-BNP; Complete Time: 11:47 [facility] 02/14 11:01 Order name: PT-INR; Complete Time: 11:45 [facility] 02/14 11:01 Order name: Troponin (emerg Dept Use Only); Complete Time: 11:47 [facility] 02/14 11:01 Order name: XRAY Chest (1 view); Complete Time: 11:45 [facility] 02/14 11:01 Order name: CT Head Brain wo Cont; Complete Time: 11:45 [facility] 02/14 11:01 Order name: CT Stone Protocol; Complete Time: 11:45 [facility] 02/14 11:01 Order name: Lipase; Complete Time: 11:45 [facility] 02/14 11:55 Order name: Manual Differential; Complete Time: 11:57 [facility] 02/14 13:10 Order name: Urine Dipstick--Ancillary (enter results) 02/14 11:01 Order name: EKG; Complete Time: 11:04 [facility] 02/14 11:01 Order name: Cardiac monitoring; Complete Time: 11:19 [facility] 02/14 11:01 Order name: EKG - Nurse/Tech; Complete Time: 12:00 [facility] 02/14 11:01 Order name: IV Saline Lock; Complete Time: 11: [facility] 02/14 11:01 Order name: Labs collected and sent; Complete Time: 11: [facility] 02/14 11:01 Order name: O2 Per Protocol; Complete Time: 11: [facility] 02/14 11:01 Order name: O2 Sat Monitoring; Complete Time: 11:19 [facility] 02/14 12:41 Order name: Urine Dipstick-Ancillary (obtain specimen); Complete Time: 12:54 ae4 Administered Medications: 11:47 Drug: Zofran 4 mg Route: IVP; Site: right antecubital; ae4 12:38 Follow up: Response: Nausea is decreased ae4 11:50 Drug: Meclizine 25 mg Route: PO; ae4 12:42 Follow up: Response: Other; dizziness decreased ae4 13:26 Drug: NS 0.9% 1000 ml Route: IV; Rate: 1 bolus; Site: right antecubital; ae4 14:47 Follow up: IV Status: Completed infusion ae4 Point of Care Testing: Blood Glucose: 10:44 Blood Glucose: 176 mg/dL; ae4 Ranges: Critical Glucose Levels:Adult <50 mg/dl or >400 mg/dl <40 mg/dl or >180 mg/dl Disposition: 18:58 Co-signature as Attending Physician, Gregor Mooney MD Available for consultation at [facility] all times. . Disposition: 02/14/19 14:14 Discharged to Home. Impression: Weakness, Dehydration. - Condition is Stable. - Discharge Instructions: Dehydration, Elderly, Weakness. - Prescriptions for Zofran ODT 4 mg Oral tablet,disintegrating - place 1 tablet by TRANSLINGUAL route every 4-6 hours; 20 tablet. - Medication Reconciliation Form, Thank You Letter, Antibiotic Education, Prescription Opioid Use form. - Follow up: Private Physician; When: 2 - 3 days; Reason: Recheck today's complaints, Continuance of care, Re-evaluation by your physician. Signatures: Dispatcher [employer] EDMS Edmundo Orosco PA PA jmm Singer, Phillip, MD MD ps1 Dale Lew RN RN ae4 Corrections: (The following items were deleted from the chart) 14:47 14:14 02/14/2019 14:14 Discharged to Home. Impression: Weakness; Dehydration. Condition ae4 is Stable. Forms are Medication Reconciliation Form, Thank You Letter, Antibiotic Education, Prescription Opioid Use. Follow up: Private Physician; When: 2 - 3 days; Reason: Recheck today's complaints, Continuance of care, Re-evaluation by your physician. michelle
[2019-02-14 14:51] LABS: Urine Blood NEGATIVE (NEG); Urine Glucose 2+ (NEG); Urine Protein NEGATIVE (NEG)
[2019-02-14 15:08] VITALS: BP 117/60; O2SAT 99
[2019-02-15 02:42] VITALS: TEMP 97.7
== END 2019-02-14 14:47 | disposition home or self-care (01) ==
LOC: ER 10:36
DX: E86.0 Dehydration (principal); R11.2 Nausea with vomiting, unspecified; I10 Essential (primary) hypertension; E78.5 Hyperlipidemia, unspecified; E11.9 Type 2 diabetes mellitus without complications; Z79.4 Long term (current) use of insulin; Z79.82 Long term (current) use of aspirin; Z88.0 Allergy status to penicillin
CPT/HCPCS: 93005; 85025; 80048; 36415; 83735; 85610; 80076; 81003; 84484; 83690; 83880; 70450; 76377; 74176; 71045; J7030; J2405; 82962; 96361; 96374; 99285

== ENCOUNTER 2023-06-15 03:12 | Emergency (ER) | payer OTHER ==
--- OUTSIDE RECORDS SUMMARY | 2023-06-15 03:19 | XMS REPORT | Continuity of Care Document ---
:1950 Author Organization [facility] t Address [address] [place] [address] [place] [id number] Care Team Providers Name Role Phone Jackson Del Rosario DO Primary Care Physician JAYA PEREA Attending Clinician Unavailable Jaya Waddell Attending Clinician Maureen Barber MD Attending Clinician MAUREEN BARBER Attending Clinician Unavailable MAUREEN BARBER Attending Clinician Unavailable Tolu Case CRNA Attending Clinician Bryant Ibarra MD Attending Clinician Doctor Unassigned, [place] Attending Clinician Unavailable Celina Jeffery RN Attending Clinician Unavailable Smita Matta MD Attending Clinician SMITA MATTA Attending Clinician Unavailable Jackson Del Rosario Attending Clinician Theresa Luna Attending Clinician Yudi Lew Attending Clinician Heather Grullon Attending Clinician MAUREEN BARBER Admitting Clinician Unavailable Maureen Barber MD Admitting Clinician Payers Payer Name Policy Type Policy Number Effective Date Expiration Date S ource Problems Condition Condition Condition Status Onset Resolution Last Treating Co mments Source Name Details Category Date Date Treatment Clinician Date Pain in Pain in Disease Active 2021-09 Univers left left 2-11 ity of shoulder shoulder 00:00: [place] 00 [facility] Branch Pain in Pain in Disease Active 2021-09 Univers left left 2-11 ity of shoulder shoulder 00:00: [place] [facility] 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 hyperlipid 2-07 it y of emia emia 00:00: [place] [facility] Knee pain Knee pain Disease Active 2020-09 Uni vers 0-25 ity of 00:00: [place] 00 Medical Branch Benign Benign Disease Active Univers hypertensi hypertensi 2-12 it y of on with on with 00:00: [place] chronic chronic 00 Medical kidney kidney Branch disease disease Localized Localized Disease Active Uni vers edema due edema due 2-12 ity of to fluid to fluid 00:00: [place] overload overload 00 Medica l Branch 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 00:00: [place] with with 00 Medical chronic chronic Branch kidney kidney disease disease 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 00:00: [place] disease disease 00 Medical Branch Anemia of Anemia of Disease Active Uni vers chronic chronic 9-03 ity of disease disease 00:00: [place] 00 Medical Branch 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 Formattin g of this note might be different from the original. Update for Diagnosis Load RT SIDE RT SIDE Diagnosis Active 2018-11-27 Memoria SCIATICA; SCIATICA; 2-20 16:11:00 l POOR POOR 16:00: [place] AMBULATION AMBULATION 00 Active 10/25/2018 [facility] RT SIDE RT SIDE Diagnosis Active 2018-09-25 Memoria SCIATICA, SCIATICA, 1-16 15:05:00 l POOR POOR 08:00: [place] AMBULATION AMBULATION 00 Active 09/20/2018 [facility] Lumbar Lumbar Disease Active Univers radicular radicular 9-04 ity of pain pain 00:00: [place] 00 Medical Branch Lumbar Lumbar Disease Active Univers radicular radicular 9-04 ity of pain pain 00:00: [place] 00 Medical Branch Morbid Morbid Problem Active 2019-03-13 Irwin rene obesity obesity 12:48:03 l (disorder) (disorder) He rmann Active Problem 03/13/2019 [facility] Allergies, Adverse Reactions, Alerts Allergy Allergy Status Severity Reaction(s) Onset Inactive Treating Comm ents Source Name Type Date Date Clinician GLYBURID DRUG Active Other-Cmnt Univ ers E INGREDI 05-08 ity of 00:00: [place] 00 Medical Branch ORPHENAD DRUG Active Other-Cmnt Univ ers RINE INGREDI 05-08 ity of 00:00: [place] 00 Medical Branch PENICILL Drug Active Other-Cmnt Univ ers INS Class 05-08 ity of 00:00: [place] 00 Medical Branch Glyburid Drug Active Other - See Uni vers e Allergy comments 05-08 ity of 00:00: [place] 00 Medical Branch Orphenad Drug Active Other - See Uni vers rine Allergy comments 05-08 ity of 00:00: [place] 00 Medical Branch Penicill Drug Active Other - See Uni vers ins Allergy comments 05-08 ity of 00:00: [place] 00 Medical Branch GLIMEPIR DRUG Active Other-Cmnt Univ ers SILVIA INGREDI 02-14 ity of 00:00: [place] 00 Medical Branch Glimepir Drug Active Other - See Uni vers silvia Allergy comments 02-14 ity of 00:00: [place] 00 Medical Branch METFORMI DRUG Active Diarrhea Univer s N INGREDI 04-16 ity of 00:00: [place] 00 Medical Branch Metformi Drug Active Diarrhea Univer s n Allergy 04-16 ity of 00:00: [place] 00 Medical Branch penicill penicill Active Memori a ins ins l [place] codeine codeine Active Memoria l [place] NO KNOWN Drug Active Univers ALLERGIE Class ity of S [facility] Social History Social Habit Start Date Stop Date Quantity Comments Source Gender identity Universit y of [facility] Sexual orientation Univer sity of [facility] Alcohol intake 2023-06-09 2023-06-09 Current University of 00:00:00 00:00:00 non-drinker of [facility] alcohol [place] (finding) History of Social 2023-05-23 2023-05-23 Univers ity of function 00:00:00 00:00:00 [facility] Exposure to 2023-01-11 2023-01-21 Not sure University SARS-CoV-2 (event) 00:00:00 08:02:00 [facility] Tobacco use and 2023-01-21 2023-01-21 Smokeless Universit y of exposure 00:00:00 00:00:00 tobacco non-user [facility] Social History 2018-11-21 2018-11-21 [facility] jayla 13:10:07 13:10:07 Sex [birth year] Universit y of 00:00:00 00:00:00 [facility] Smoking Status Start Date Stop Date Source Never smoked tobacco [facility] Medications Ordered Filled Start Stop Current Ordering Indication Dosage Frequency Signature Comments Components Source Medication Medication Date Date Medication? Clinician (SIG) Name Name pentazocine 2022-09 Yes 4647 1{tbl} Take 1 [place] -naloxone 0-06 tablet by ity o f 50-0.5 mg 00:00: mouth [place] tablet 00 every 6 Medical (six) Branch hours as needed for Pain. Indication s: acute pain acetaminoph 2022- Yes 4647 1{tbl} Take 1 U nivers en-codeine 06-01 10-05 tablet by ity of 300-30 mg 00:00: 04:59 mouth [place] tablet 00 :00 every 4 Medical (four) Branch hours as needed for Pain (scale 4-6) for up to 7 days. Indication s: acute pain morpHINE (2 Yes 2mg 2 mg, Slow Univers mg/mL) 05-23 IV Push, ity of injection 2 15:11: Q5MIN PRN, [place] mg 39 5 doses, Medical Starting Branch on 05/23/23 at 1011, Until Discontinu ed, Routine, Pain (scale 4-6), PACU ondansetron Yes 4mg 4 mg, Slow Univers (ZOFRAN 05-23 IV Push, ity of (PF)) 15:11: PRN, 1 [place] injection 4 39 dose, Medical mg Starting Branch on Tue05/23/23 at 1011, Until Discontinu ed, Routine, Nausea and Vomiting (N/V), PACU morpHINE (2 2022- No 2mg 2 mg, Slow Univers mg/mL) 05-23 IV Push, ity of injection 2 15:11: 19:19 Q5MIN PRN, [place] mg 39 :39 5 doses, Medical Starting Branch on Tue05/23/23 at 1011, Until Tue05/23/23 at 1419, Routine, Pain (scale 4-6), PACU ondansetron 2022- No 4mg 4 mg, Slow Univers (ZOFRAN 05-23 IV Push, ity of (PF)) 15:11: 19:19 PRN, 1 [place] injection 4 39 :39 dose, Medical mg Starting Branch on Tue05/23/23 at 1011, Until Tue05/23/23 at 1419, Routine, Nausea and Vomiting (N/V), PACU cefTRIAXone 2022- No Slow IV [place] (ROCEPHIN) 05-23 Push, ONCE it y of injection 14:32: 15:26 INTRA [place] 00 :44 PROCEDURE, Medical Starting Branch on Tue05/23/23 at 0932, Until Tue05/23/23 at 1026, ROMY, Intra-op acetaminoph 2022- No IV Unive rs en ADULT 05-23 Infusion, ity o f ([facility]) 14:25: 15:26 Administer [place] injection 00 :44 over 15 Medical Minutes, Branch ONCE INTRA PROCEDURE, Starting on Tue05/23/23 at 0925, Until Tue05/23/23 at 1026, Routine, Intra-op sugammadex 2022- No IV Push, [place] (BRIDION) 05-23 ONCE INTRA ity of injection 14:25: 15:26 PROCEDURE, [place] 00 :44 Starting Medical on Mon Branch 05/23/23 at 0925, Until Tue05/23/23 at 1026, Routine, Intra-op ketamine 2022- No Intravenou [place] (KETALAR) 05-23 s, ONCE ity of injection 13:55: 15:26 INTRA [place] 00 :44 PROCEDURE, Medical Starting Branch on Tue05/23/23 at 0855, Until Tue05/23/23 at 1026, Routine, Intra-op sodium 2022- No PRN, Univers chloride 05-23 Starting ity of 0.9 % 13:51: 15:20 on [facility] [place] irrigation 00 :51 05/23/23 at [facility] ical solution 0851, Branch Until Tue05/23/23 at 1020, Intra-op tranexamic 2022- No IV Univer s acid 05-23 Piggyback, ity of (CYKLOKAPRO 13:30: 15:26 CONTINUOUS [place] N) 1,000 mg 00 :44 PRN, Medical in NaCl Starting Branch 0.9% (NS) on Tue 250 mL 05/23/23 at piggyback 0830, Until Tue05/23/23 at 1026, Administer over 60 Minutes, 250 mL, Intra-op ceFAZolin 2022- No Slow IV Univ ers (ANCEF) 05-23 Push, ONCE ity o f injection 13:10: 15:26 INTRA [place] 00 :44 PROCEDURE, Medical Starting Branch on Tue05/23/23 at 0810, Until Tue05/23/23 at 1026, ROMY, Intra-op dexamethaso 2022- No IV Push, U nivers ne 05-23 ONCE INTRA ity of (DECADRON 13:05: 15:26 PROCEDURE, [place] PHOSPHATE) 00 :44 Starting Medic al injection on [facility] Branch 05/23/23 at 0805, Until Tue05/23/23 at 1026, Routine, Intra-op rocuronium 2022- No IV Push, [place] (ZEMURON) 05-23 ONCE INTRA ity of injection 12:57: 15:26 PROCEDURE, [place] 00 :44 Starting Medical on [facility] Branch 05/23/23 at 0757, Until Tue05/23/23 at 1026, Routine, Intra-op propofoL IV 2022- No IV Unive rs infusion 05-23 Infusion, ity o f 12:57: 15:26 ONCE INTRA [place] 00 :44 PROCEDURE, Medical Starting Branch on Tue05/23/23 at 0757, Until Tue05/23/23 at 1026, Routine, Intra-op lidocaine 2022- No Slow IV Univ ers 1% 05-23 Push, ONCE ity of (XYLOCAINE) 12:57: 15:26 INTRA [place] 100 mg/10 00 :44 PROCEDURE, Medi denilson mL (1 %) Starting Branch injection on Tue05/23/23 at 0757, Until Tue05/23/23 at 1026, Routine, Intra-op FENTanyl PF 2022- No Epidural, Univers (SUBLIMAZE 05-23 ONCE INTRA it y of (PF)) 12:57: 15:26 PROCEDURE, [place] injection 00 :44 Starting Medica l on Tue Branch 05/23/23 at 0757, Until Tue05/23/23 at 1026, Routine, Intra-op midazolam 2022- No IV Push, Uni vers (VERSED) 05-23 ONCE INTRA ity of injection 12:44: 15:26 PROCEDURE, [place] 00 :44 Starting Medical on Tue Branch 05/23/23 at 0744, Until Tue05/23/23 at 1026, Routine, Intra-op lactated 2022- No IV Univers ringers IV 05-23 Infusion, ity of infusion 12:44: 15:26 CONTINUOUS [place] 00 :44 PRN, Medical Starting Branch on Tue05/23/23 at 0744, Until Tue05/23/23 at 1026, Routine, Intra-op ropivacaine 2022- No Infiltrati Univers 0.5 % 05-23 on, ONCE ity of (NAROPIN 12:33: 15:26 INTRA [place] (PF)) 00 :44 PROCEDURE, Medical injection Starting Branch on Tue05/23/23 at 0733, Until Tue05/23/23 at 1026, Routine, Intra-op ASPIRIN 2022-0 Yes 81mg 81 mg Univers LOW-STRENGT 05-23 daily. ity of H ORAL 12:19: [place] 35 Medical Branch metFORMIN 2023-0 Yes 500mg Take 1 Unive rs 500 mg 9-18 tablet by ity of tablet 12:19: mouth in [place] [address] the Medical morning. Branch empaglifloz 2023-0 Yes 10mg Take 1 Univ ers in 9-18 tablet by ity of (JARDIANCE) 12:19: mouth in [place] 10 mg Tab 35 the Medical morning. Branch semaglutide 2023-0 Yes 1mg inject 1 [place] (OZEMPIC) 1 9-18 mg under ity of mg/dose (4 12:19: the skin [place] as mg/3 mL) 35 weekly. Medical PnIj Sundays Branch azilsartan 2023-0 Yes Take by Univ ers med-chlorth 9-18 mouth ity of alidone 12:19: daily. [place] ([place] 35 Medical ) 40-12.5 Branch mg Tab vitamin 2023-0 Yes Take by Univers D3-folic 9-18 mouth. ity of acid 125 12:19: [place] mcg (5,000 35 Medical unit)-1 mg Branch Tab diclofenac 3-0 Yes 75mg Take 1 Unive rs 75 mg EC 9-18 tablet by ity of tablet 12:19: mouth as [place] [address] needed. Medical Branch ASPIRIN 3-0 Yes 81mg 81 mg Univers LOW-STRENGT 9-18 daily. ity of H ORAL 12:19: [place] [address] Medical Branch metFORMIN 3-0 Yes 500mg Take 1 Unive rs 500 mg 9-18 tablet by ity of tablet 12:19: mouth in [place] [address] the Medical morning. Branch empaglifloz 2023-0 Yes 10mg Take 1 Univ ers in 9-18 tablet by ity of (JARDIANCE) 12:19: mouth in [place] 10 mg Tab 35 the Medical morning. Branch semaglutide 2023-0 Yes 1mg inject 1 [place] (OZEMPIC) 1 9-18 mg under ity of mg/dose (4 12:19: the skin [place] as mg/3 mL) 35 weekly. Medical PnIj Sundays Branch azilsartan 2023-0 Yes Take by Univ ers med-chlorth 9-18 mouth ity of alidone 12:19: daily. [place] ([place] 35 Medical ) 40-12.5 Branch mg Tab vitamin 2023-0 Yes Take by Univers D3-folic 9-18 mouth. ity of acid 125 12:19: [place] mcg (5,000 35 Medical unit)-1 mg Branch Tab diclofenac 2022-0 Yes 75mg Take 1 Unive rs 75 mg EC 9-18 tablet by ity of tablet 12:19: mouth as [place] [address] needed. Medical Branch ASPIRIN 2022-0 Yes 81mg 81 mg Univers LOW-STRENGT 9-18 daily. ity of H ORAL 12:19: [place] [address] Medical Branch metFORMIN 3-0 Yes 500mg Take 1 Unive rs 500 mg 9-18 tablet by ity of tablet 12:19: mouth in [place] [address] the Medical morning. Branch empaglifloz 3-0 Yes 10mg Take 1 Univ ers in 9-18 tablet by ity of (JARDIANCE) 12:19: mouth in [place] 10 mg Tab 35 the Medical morning. Branch semaglutide 2022-0 Yes 1mg inject 1 [place] (OZEMPIC) 1 9-18 mg under ity of mg/dose (4 12:19: the skin [place] as mg/3 mL) 35 weekly. Medical PnIj Sundays Branch azilsartan 2022-0 Yes Take by Univ ers med-chlorth 9-18 mouth ity of alidone 12:19: daily. [place] ([place] 35 Medical ) 40-12.5 Branch mg Tab vitamin 2022-0 Yes Take by Univers D3-folic 9-18 mouth. ity of acid 125 12:19: [place] mcg (5,000 35 Medical unit)-1 mg Branch Tab diclofenac 2022-0 Yes 75mg Take 1 Unive rs 75 mg EC 9-18 tablet by ity of tablet 12:19: mouth as [place] [address] needed. Medical Branch ASPIRIN 3-0 Yes 81mg 81 mg Univers LOW-STRENGT 9-18 daily. ity of H ORAL 12:19: [place] [address] Medical Branch metFORMIN 3-0 Yes 500mg Take 1 Unive rs 500 mg 9-18 tablet by ity of tablet 12:19: mouth in [place] [address] the Medical morning. Branch empaglifloz 3-0 Yes 10mg Take 1 Univ ers in 9-18 tablet by ity of (JARDIANCE) 12:19: mouth in [place] 10 mg Tab 35 the Medical morning. Branch semaglutide 3-0 Yes 1mg inject 1 [place] (OZEMPIC) 1 9-18 mg under ity of mg/dose (4 12:19: the skin [place] as mg/3 mL) 35 weekly. Medical PnIj Sundays Branch azilsartan 2022-0 Yes Take by Univ ers med-chlorth 9-18 mouth ity of alidone 12:19: daily. [place] ([place] 35 Medical ) 40-12.5 Branch mg Tab vitamin 2022-0 Yes Take by Univers D3-folic 9-18 mouth. ity of acid 125 12:19: [place] mcg (5,000 35 Medical unit)-1 mg Branch Tab diclofenac 2022-0 Yes 75mg Take 1 Unive rs 75 mg EC 9-18 tablet by ity of tablet 12:19: mouth as [place] 35 needed. Medical Branch ASPIRIN 2022-0 Yes 81mg 81 mg Univers LOW-STRENGT 9-18 daily. ity of H ORAL 12:19: [place] [address] Medical Branch metFORMIN 2022-0 Yes 500mg Take 1 Unive rs 500 mg - tablet by ity of tablet 12:19: mouth in [place] 35 the Medical morning. Branch empaglifloz 2022-0 Yes 10mg Take 1 Univ ers in 05-23 tablet by ity of (JARDIANCE) 12:19: mouth in [place] 10 mg Tab 35 the Medical morning. Branch semaglutide 0 Yes 1mg inject 1 [place] (OZEMPIC) 1 9-18 mg under ity of mg/dose (4 12:19: the skin [place] as mg/3 mL) 35 weekly. Medical PnIj Sundays Branch azilsartan 2022-0 Yes Take by Univ ers med-chlorth 9-18 mouth ity of alidone 12:19: daily. [place] ([place] 35 Medical ) 40-12.5 Branch mg Tab vitamin 3-0 Yes Take by Univers D3-folic 9-18 mouth. ity of acid 125 12:19: [place] mcg (5,000 35 Medical unit)-1 mg Branch Tab diclofenac 3-0 Yes 75mg Take 1 Unive rs 75 mg EC 9-18 tablet by ity of tablet 12:19: mouth as [place] 35 needed. Medical Branch ASPIRIN 2022-0 Yes 81mg 81 mg Univers LOW-STRENGT 9-18 daily. ity of H ORAL 12:19: [place] [address] Medical Branch metFORMIN 2023-0 Yes 500mg Take 1 Unive rs 500 mg 9-18 tablet by ity of tablet 12:19: mouth in [place] [address] the Medical morning. Branch empaglifloz 2023-0 Yes 10mg Take 1 Univ ers in 9-18 tablet by ity of (JARDIANCE) 12:19: mouth in [place] 10 mg Tab 35 the Medical morning. Branch semaglutide 2023-0 Yes 1mg inject 1 [place] (OZEMPIC) 1 9-18 mg under ity of mg/dose (4 12:19: the skin [place] as mg/3 mL) 35 weekly. Medical PnIj Sundays Branch azilsartan 2022-0 Yes Take by Univ ers med-chlorth 9-18 mouth ity of alidone 12:19: daily. [place] ([place] 35 Medical ) 40-12.5 Branch mg Tab vitamin 2022-0 Yes Take by Univers D3-folic 918 mouth. ity of acid 125 12:19: [place] mcg (5,000 35 Medical unit)-1 mg Branch Tab diclofenac 2022-0 Yes 75mg Take 1 Unive rs 75 mg EC 9-18 tablet by ity of tablet 12:19: mouth as [place] [address] needed. Medical Branch ASPIRIN 3-0 Yes 81mg 81 mg Univers LOW-STRENGT 9-18 daily. ity of H ORAL 12:19: [place] [address] Medical Branch metFORMIN 3-0 Yes 500mg Take 1 Unive rs 500 mg 9-18 tablet by ity of tablet 12:19: mouth in [place] [address] the Medical morning. Branch empaglifloz 2023-0 Yes 10mg Take 1 Univ ers in 9-18 tablet by ity of (JARDIANCE) 12:19: mouth in [place] 10 mg Tab 35 the Medical morning. Branch semaglutide 2023-0 Yes 1mg inject 1 [place] (OZEMPIC) 1 9-18 mg under ity of mg/dose (4 12:19: the skin [place] as mg/3 mL) 35 weekly. Medical PnIj Sundays Branch azilsartan 3-0 Yes Take by Univ ers med-chlorth 9-18 mouth ity of alidone 12:19: daily. [place] ([place] 35 Medical ) 40-12.5 Branch mg Tab vitamin 2023-0 Yes Take by Univers D3-folic 9-18 mouth. ity of acid 125 12:19: [place] mcg (5,000 35 Medical unit)-1 mg Branch Tab diclofenac 2022-0 Yes 75mg Take 1 Unive rs 75 mg EC 9-18 tablet by ity of tablet 12:19: mouth as [place] [address] needed. Medical Branch ASPIRIN 2022-0 Yes 81mg 81 mg Univers LOW-STRENGT 9-18 daily. ity of H ORAL 12:19: [place] [address] Medical Branch metFORMIN 3-0 Yes 500mg Take 1 Unive rs 500 mg 9-18 tablet by ity of tablet 12:19: mouth in [place] [address] the Medical morning. Branch empaglifloz 3-0 Yes 10mg Take 1 Univ ers in 9-18 tablet by ity of (JARDIANCE) 12:19: mouth in [place] 10 mg Tab 35 the Medical morning. Branch semaglutide 2022-0 Yes 1mg inject 1 [place] (OZEMPIC) 1 9-18 mg under ity of mg/dose (4 12:19: the skin [place] as mg/3 mL) 35 weekly. Medical PnIj Sundays Branch azilsartan 2022-0 Yes Take by Univ ers med-chlorth -18 mouth ity of alidone 12:19: daily. [place] ([place] 35 Medical ) 40-12.5 Branch mg Tab vitamin 2022-0 Yes Take by Univers D3-folic 9-18 mouth. ity of acid 125 12:19: [place] mcg (5,000 35 Medical unit)-1 mg Branch Tab diclofenac 2022-0 Yes 75mg Take 1 Unive rs 75 mg EC 9-18 tablet by ity of tablet 12:19: mouth as [place] [address] needed. Medical Branch ASPIRIN 2022-0 Yes 81mg 81 mg Univers LOW-STRENGT 9-18 daily. ity of H ORAL 12:19: [place] [address] Medical Branch metFORMIN 3-0 Yes 500mg Take 1 Unive rs 500 mg 9-18 tablet by ity of tablet 12:19: mouth in [place] [address] the Medical morning. Branch empaglifloz 3-0 Yes 10mg Take 1 Univ ers in 9-18 tablet by ity of (JARDIANCE) 12:19: mouth in [place] 10 mg Tab 35 the Medical morning. Branch semaglutide 3-0 Yes 1mg inject 1 [place] (OZEMPIC) 1 9-18 mg under ity of mg/dose (4 12:19: the skin [place] as mg/3 mL) 35 weekly. Medical PnIj Sundays Branch azilsartan 0 Yes Take by Univ ers med-chlorth 9-18 mouth ity of alidone 12:19: daily. [place] ([place] 35 Medical ) 40-12.5 Branch mg Tab vitamin 2022-0 Yes Take by Univers D3-folic 9-18 mouth. ity of acid 125 12:19: [place] mcg (5,000 35 Medical unit)-1 mg Branch Tab diclofenac 2022-0 Yes 75mg Take 1 Unive rs 75 mg EC 9-18 tablet by ity of tablet 12:19: mouth as [place] 35 needed. Medical Branch ASPIRIN 2022-0 Yes 81mg 81 mg Univers LOW-STRENGT 9-18 daily. ity of H ORAL 12:19: [place] [address] Medical Branch metFORMIN 0 Yes 500mg Take 1 Unive rs 500 mg -18 tablet by ity of tablet 12:19: mouth in [place] 35 the Medical morning. Branch empaglifloz 0 Yes 10mg Take 1 Univ ers in 9-18 tablet by ity of (JARDIANCE) 12:19: mouth in [place] 10 mg Tab 35 the Medical morning. Branch semaglutide Yes 1mg inject 1 [place] (OZEMPIC) 1 9-18 mg under ity of mg/dose (4 12:19: the skin [place] as mg/3 mL) 35 weekly. Medical PnIj Sundays Branch azilsartan 0 Yes Take by Univ ers med-chlorth 9-18 mouth ity of alidone 12:19: daily. [place] ([place] 35 Medical ) 40-12.5 Branch mg Tab vitamin 2022-0 Yes Take by Univers D3-folic 9-18 mouth. ity of acid 125 12:19: [place] mcg (5,000 35 Medical unit)-1 mg Branch Tab diclofenac 2022-0 Yes 75mg Take 1 Unive rs 75 mg EC 9-18 tablet by ity of tablet 12:19: mouth as [place] 35 needed. Medical Branch ASPIRIN 2022-0 Yes 81mg 81 mg Univers LOW-STRENGT 9-18 daily. ity of H ORAL 12:19: [place] Medical Branch metFORMIN 3-0 Yes 500mg Take 1 Unive rs 500 mg 9-18 tablet by ity of tablet 12:19: mouth in [place] [address] the Medical morning. Branch empaglifloz 3-0 Yes 10mg Take 1 Univ ers in 9-18 tablet by ity of (JARDIANCE) 12:19: mouth in [place] 10 mg Tab 35 the Medical morning. Branch semaglutide 3-0 Yes 1mg inject 1 [place] (OZEMPIC) 1 9-18 mg under ity of mg/dose (4 12:19: the skin [place] as mg/3 mL) 35 weekly. Medical PnIj Sundays Branch azilsartan 2022-0 Yes Take by Univ ers med-chlorth -18 mouth ity of alidone 12:19: daily. [place] ([place] 35 Medical ) 40-12.5 Branch mg Tab vitamin 2022-0 Yes Take by Univers D3-folic 05-23 mouth. ity of acid 125 12:19: [place] mcg (5,000 35 Medical unit)-1 mg Branch Tab diclofenac 2022-0 Yes 75mg Take 1 Unive rs 75 mg EC -18 tablet by ity of tablet 12:19: mouth as [place] [address] needed. Medical Branch ASPIRIN 2022-0 Yes 81mg [address] [facility] LOW-STRENGT 18 daily. ity of H ORAL 12:19: [place] [address] Medical Branch metFORMIN 3-0 Yes 500mg Take 1 Unive rs 500 mg 9-18 tablet by ity of tablet 12:19: mouth in [place] [address] the Medical morning. Branch empaglifloz 3-0 Yes 10mg Take 1 Univ ers in 9-18 tablet by ity of (JARDIANCE) 12:19: mouth in [place] 10 mg Tab 35 the Medical morning. Branch semaglutide 3-0 Yes 1mg inject 1 [place] (OZEMPIC) 1 9-18 mg under ity of mg/dose (4 12:19: the skin [place] as mg/3 mL) 35 weekly. Medical PnIj Sundays Branch azilsartan 2022-0 Yes Take by Univ ers med-chlorth 9-18 mouth ity of alidone 12:19: daily. [place] ([place] 35 Medical ) 40-12.5 Branch mg Tab vitamin 2023-0 Yes Take by Univers D3-folic 05-23 mouth. ity of acid 125 12:19: [place] mcg (5,000 35 Medical unit)-1 mg Branch Tab diclofenac Yes 75mg Take 1 Unive rs 75 mg EC 05-23 tablet by ity of tablet 12:19: mouth as [place] 35 needed. Medical Branch gabapentin 2022- No 300mg 300 mg, [place] (NEURONTIN) 05-23 Oral, ity of capsule 300 11:45: 11:41 ONCE, 1 [place] mg 00 :00 dose, On Medical [facility] Branch 05/23/23 at 0645, Routine, DSU Pre-op oxyCODONE-a 2022- No 2{tbl} 2 tablet, Univers cetaminophe 05-23 Oral, ity of n 11:45: 11:39 ONCE, 1 [place] (PERCOCET) 00 :00 dose, On Medic al 5-325 mg [facility] Branch per tablet 05/23/23 at 2 tablet 0645, Routine, DSU Pre-op celecoxib 2022- No 400mg 400 mg, Uni vers (CELEBREX) 05-23 Oral, ity of capsule 400 11:45: 11:39 ONCE, 1 [place] mg 00 :00 dose, On [facility] Branch 05/23/23 at 0645, Routine, DSU Pre-op lactated 2022- No 1000mL at 42 Unive rs ringers IV 05-23 mL/hr, ity of infusion 11:45: 12:03 1,000 mL, [place] as 1,000 mL 00 :00 IV Medical Infusion, Branch ONCE, 1 dose, On [facility] 05/23/23 at 0645, Routine, DSU Pre-op gabapentin 2022- No 300mg 300 mg, [place] (NEURONTIN) 05-23 Oral, ity of capsule 300 11:45: 11:41 ONCE, 1 [place] mg 00 :00 dose, On [facility] Branch 05/23/23 at 0645, Routine, DSU Pre-op oxyCODONE-a 2022- No 2{tbl} 2 tablet, [facility] cetaminophe 05-23 Oral, ity of n 11:45: 11:39 ONCE, 1 [place] (PERCOCET) 00 :00 dose, On Medic al 5-325 mg Mon Branch per tablet 05/23/23 at 2 tablet 0645, Routine, DSU Pre-op celecoxib 2022-0 202- No 400mg 400 mg, Uni vers (CELEBREX) 05-23 Oral, ity of capsule 400 11:45: 11:39 ONCE, 1 [place] mg 00 :00 dose, On Medical Mon Branch 05/23/23 at 0645, Routine, DSU Pre-op lactated 2022-0 2022- No 1000mL at 42 Unive rs ringers IV 05-23 mL/hr, ity of infusion 11:45: 12:03 1,000 mL, [place] as 1,000 mL 00 :00 IV Medical Infusion, Branch ONCE, 1 dose, On 05/23/23 at 0645, Routine, DSU Pre-op diclofenac 2022-0 Yes 75mg Take 1 Unive rs 75 mg EC 05-23 tablet by ity of tablet 10:20: mouth as [place] 51 needed. Medical Branch ASPIRIN 2022-0 Yes 81mg 81 mg [facility] LOW-STRENGT 05-23 daily. ity of H ORAL 08:22: [place] 41 Medical Branch metFORMIN 2022-0 Yes 500mg Take 1 Un[facility] rs 500 mg 05-23 tablet by ity of tablet 08:22: mouth in [place] 41 the Medical morning. Branch empaglifloz 0 Yes 10mg Take 1 Univ ers in 05-23 tablet by ity of (JARDIANCE) 08:22: mouth in [place] 10 mg Tab 41 the Medical morning. Branch semaglutide 0 Yes 1mg inject 1 [place] (OZEMPIC) 1 -18 mg under ity of mg/dose (4 08:22: the skin [place] as mg/3 mL) 41 weekly. Medical PnIj Sundays Branch azilsartan 0 Yes Take by Univ ers med-chlorth 05-23 mouth ity of alidone 08:22: daily. [place] (EDARBYCLOR 41 Medical ) 40-12.5 Branch mg Tab vitamin 2022-0 Yes Take by [facility] D3-folic 05-23 mouth. ity of acid 125 08:22: [place] mcg (5,000 41 Medical unit)-1 mg Branch Tab oxyCODONE-a 2022- Yes 2{tbl} Uni vers cetaminophe 05-23 ity of n 05:00: 16:59 [place] (PERCOCET) 00 :00 Medical 5-325 mg Branch per tablet 2 tablet tranexamic 2022- Yes 1000mg Univ ers acid 05-23 ity of (CYKLOKAPRO 05:00: 16:59 [place] N) 1,000 mg 00 :00 Medical in NaCl Branch 0.9% (NS) 250 mL piggyback oxyCODONE-a 2022- Yes 2{tbl} Uni vers cetaminophe 05-23 ity of n 05:00: 16:59 [place] (PERCOCET) 00 :00 Medical 5-325 mg Branch per tablet 2 tablet tranexamic 2022- Yes 1000mg Univ ers acid 05-23 ity of (CYKLOKAPRO 05:00: 16:59 [place] N) 1,000 mg 00 :00 Medical in NaCl Branch 0.9% (NS) 250 mL piggyback oxyCODONE-a 2022- Yes 2{tbl} Uni vers cetaminophe 05-23 ity of n 05:00: 16:59 [place] (PERCOCET) 00 :00 Medical 5-325 mg Branch per tablet 2 tablet tranexamic 2022- Yes 1000mg Univ ers acid 05-23 ity of (CYKLOKAPRO 05:00: 16:59 [place] N) 1,000 mg 00 :00 Medical in NaCl Branch 0.9% (NS) 250 mL piggyback oxyCODONE-a 2022- Yes 2{tbl} Uni vers cetaminophe 05-23 ity of n 05:00: 16:59 [place] (PERCOCET) 00 :00 Medical 5-325 mg Branch per tablet 2 tablet tranexamic 2022- Yes 1000mg Univ ers acid 05-23 ity of (CYKLOKAPRO 05:00: 16:59 [place] N) 1,000 mg 00 :00 Medical in NaCl Branch 0.9% (NS) 250 mL piggyback oxyCODONE-a 2022- Yes 2{tbl} Uni vers cetaminophe 05-23 ity of n 05:00: 16:59 [place] (PERCOCET) 00 :00 Medical 5-325 mg Branch per tablet 2 tablet tranexamic 2022- Yes 1000mg Univ ers acid 05-23 ity of (CYKLOKAPRO 05:00: 16:59 [place] N) 1,000 mg 00 :00 Medical in NaCl Branch 0.9% (NS) 250 mL piggyback aspirin 325 2022- Yes [id number] 325mg Take 1 [facility] mg tablet 05-23 [id number] tablet by it y of 00:00: 04:59 mouth in [place] 00 :00 the Medical morning [place] and 1 tablet in the evening. Take with meals. Do all this for 28 days. aspirin 325 2022- Yes [id number] 325mg Take 1 [facility] mg tablet 05-23 [id number] tablet by it y of 00:00: 04:59 mouth in [place] 00 :00 the Medical morning Branch and 1 tablet in the evening. Take with meals. Do all this for 28 days. aspirin 325 2022- Yes [id number] 325mg Take 1 [facility] mg tablet 05-23 [id number] tablet by it y of 00:00: 04:59 mouth in [place] 00 :00 the Medical morning [place] and 1 tablet in the evening. Take with meals. Do all this for 28 days. aspirin 325 2022- Yes [id number] 325mg Take 1 [facility] mg tablet 05-23 [id number] tablet by it y of 00:00: 04:59 mouth in [place] 00 :00 the Medical morning Branch and 1 tablet in the evening. Take with meals. Do all this for 28 days. aspirin 325 2022- Yes [id number] 325mg Take 1 [facility] mg tablet 05-23 [id number] tablet by it y of 00:00: 04:59 mouth in [place] 00 :00 the Medical morning [place] and 1 tablet in the evening. Take with meals. Do all this for 28 days. aspirin 325 2022- Yes [id number] 325mg Take 1 [facility] mg tablet 05-23 [id number] tablet by it y of 00:00: 04:59 mouth in [place] 00 :00 the Medical morning Branch and 1 tablet in the evening. Take with meals. Do all this for 28 days. aspirin 325 2022- Yes [id number] 325mg Take 1 [facility] mg tablet 05-23 [id number] tablet by it y of 00:00: 04:59 mouth in [place] 00 :00 the [facility] morning [place] and 1 tablet in the evening. Take with meals. Do all this for 28 days. aspirin 325 2022- Yes [id number] 325mg Take 1 [facility] mg tablet 05-23 [id number] tablet by it y of 00:00: 04:59 mouth in [place] 00 :00 the [facility] morning [place] and 1 tablet in the evening. Take with meals. Do all this for 28 days. aspirin 325 2022- Yes [id number] 325mg Take 1 [facility] mg tablet 05-23 [id number] tablet by it y of 00:00: 04:59 mouth in [place] 00 :00 the [facility] [place] and 1 tablet in the evening. Take with meals. Do all this for 28 days. aspirin 325 2022- Yes [id number] 325mg Take 1 [facility] mg tablet 05-23 [id number] tablet by it y of 00:00: 04:59 mouth in [place] 00 :00 the [facility] [place] and 1 tablet in the evening. Take with meals. Do all this for 28 days. aspirin 325 2022- Yes [id number] 325mg Take 1 [facility] mg tablet 05-23 [id number] tablet by it y of 00:00: 04:59 mouth in [place] 00 :00 the [facility] [place] and 1 tablet in the evening. Take with meals. Do all this for 28 days. aspirin 325 2022- Yes [id number] 325mg Take 1 [facility] mg tablet 05-23 [id number] tablet by it y of 00:00: 04:59 mouth in [place] 00 :00 the [facility] [place] and 1 tablet in the evening. Take with meals. Do all this for 28 days. HYDROcodone 2022- Yes 4647 1{tbl} Take 1 U nivers -acetaminop 05-23 tablet by it y of hen 5-325 00:00: 04:59 mouth [place] mg tablet 00 :00 every 6 Medical (six) Branch hours as needed for Pain (scale 4-6) or Pain (scale 7-10) for up to 7 days. Indication s: acute pain HYDROcodone 2022- Yes 4647 1{tbl} Take 1 U nivers -acetaminop 9-18 09-26 tablet by it y of hen 5-325 00:00: 04:59 mouth [place] mg tablet 00 :00 every 6 Medical (six) Branch hours as needed for Pain (scale 4-6) or Pain (scale 7-10) for up to 7 days. Indication s: acute pain HYDROcodone 2022- Yes 4647 1{tbl} Take 1 U nivers -acetaminop 9-18 09-26 tablet by it y of hen 5-325 00:00: 04:59 mouth [place] mg tablet 00 :00 every 6 Medical (six) Branch hours as needed for Pain (scale 4-6) or Pain (scale 7-10) for up to 7 days. Indication s: acute pain HYDROcodone 2022- Yes 4647 1{tbl} Take 1 U nivers -acetaminop 9-18 09-26 tablet by it y of hen 5-325 00:00: 04:59 mouth [place] mg tablet 00 :00 every 6 Medical (six) Branch hours as needed for Pain (scale 4-6) or Pain (scale 7-10) for up to 7 days. Indication s: acute pain HYDROcodone 2022- Yes 4647 1{tbl} Take 1 U nivers -acetaminop 9-18 09-26 tablet by it y of hen 5-325 00:00: 04:59 mouth [place] mg tablet 00 :00 every 6 Medical (six) Branch hours as needed for Pain (scale 4-6) or Pain (scale 7-10) for up to 7 days. Indication s: acute pain HYDROcodone 2022- Yes 4647 1{tbl} Take 1 U nivers -acetaminop 9-18 09-26 tablet by it y of hen 5-325 00:00: 04:59 mouth [place] mg tablet 00 :00 every 6 Medical (six) Branch hours as needed for Pain (scale 4-6) or Pain (scale 7-10) for up to 7 days. Indication s: acute pain diclofenac 3-0 Yes 75mg Take 1 Unive rs 75 mg EC 9-06 tablet by ity of tablet 14:34: mouth as [place] 18 needed. Medical Branch diclofenac 2023-0 Yes 75mg Take 1 Unive rs 75 mg EC 9-06 tablet by ity of tablet 14:34: mouth as [place] 18 needed. Medical Branch diclofenac 2023-0 Yes 75mg Take 1 Unive rs 75 mg EC 9-06 tablet by ity of tablet 14:34: mouth as [place] 18 needed. Medical Branch diclofenac 2023-0 Yes 75mg Take 1 Unive rs 75 mg EC 9-06 tablet by ity of tablet 14:34: mouth as [place] 18 needed. Medical Branch ASPIRIN 2022-0 Yes 81mg 81 mg [facility] LOW-STRENGT 05-11 daily. ity of H ORAL 14:29: [place] [address] Medical Branch metFORMIN 2022-0 Yes 500mg Take 1 Unive rs 500 mg 05-11 tablet by ity of tablet 14:29: mouth in [place] [address] the Medical morning. Branch empaglifloz 2022-0 Yes 10mg Take 1 Univ ers in 05-11 tablet by ity of (JARDIANCE) 14:29: mouth in [place] 10 mg Tab 51 the Medical morning. Branch semaglutide 2022-0 Yes 1mg inject 1 [place] (OZEMPIC) 1 -06 mg under ity of mg/dose (4 14:29: the skin [place] as mg/3 mL) 51 weekly. Medical PnIj Sundays Branch azilsartan 2022-0 Yes Take by Univ ers med-chlorth 06 mouth ity of alidone 14:29: daily. [place] (EDARBYCLOR 51 Medical ) 40-12.5 Branch mg Tab vitamin 2022-0 Yes Take by [facility] D3-folic 05-11 mouth. ity of acid 125 14:29: [place] mcg (5,000 51 Medical unit)-1 mg Branch Tab ASPIRIN 2022-0 Yes 81mg 81 mg [facility] LOW-STRENGT 9-06 daily. ity of H ORAL 14:29: [place] [address] Medical Branch metFORMIN 3-0 Yes 500mg Take 1 Unive rs 500 mg - tablet by ity of tablet 14:29: mouth in [place] [address] the Medical morning. Branch empaglifloz 2023-0 Yes 10mg Take 1 Univ ers in 9-06 tablet by ity of (JARDIANCE) 14:29: mouth in [place] 10 mg Tab 51 the Medical morning. Branch semaglutide 2023-0 Yes 1mg inject 1 [place] (OZEMPIC) 1 9-06 mg under ity of mg/dose (4 14:29: the skin [place] mg/3 mL) 51 weekly. Medical PnIj Sundays Branch azilsartan 2023-0 Yes Take by Univ ers med-chlorth 9- mouth ity of alidone 14:29: daily. [place] (EDARBYCLOR Medical ) 40-12.5 Branch mg Tab vitamin 2023-0 Yes Take by [facility] D3-folic 05-11 mouth. ity of acid 125 14:29: [place] mcg (5,000 51 Medical unit)-1 mg Branch Tab ASPIRIN 2023-0 Yes 81mg 81 mg [facility] LOW-STRENGT 9-06 daily. ity of H ORAL 14:29: [place] [address] Medical Branch metFORMIN 2023-0 Yes 500mg Take 1 Unive rs 500 mg 9- tablet by ity of tablet 14:29: mouth in [place] [address] the Medical morning. Branch empaglifloz 2023-0 Yes 10mg Take 1 Univ ers in 9-06 tablet by ity of (JARDIANCE) 14:29: mouth in [place] 10 mg Tab 51 the Medical morning. Branch semaglutide 2023-0 Yes 1mg inject 1 [place] (OZEMPIC) 1 9-06 mg under ity of mg/dose (4 14:29: the skin [place] mg/3 mL) 51 weekly. Medical PnIj Sundays Branch azilsartan 2023-0 Yes Take by [facility] ers med-chlorth 9-06 mouth ity of alidone 14:29: daily. [place] (EDARBYCLOR 51 [facility] ) 40-12.5 Branch mg Tab vitamin 2023-0 Yes Take by Univers D3-folic 9- mouth. ity of acid 125 14:29: [place] mcg (5,000 51 Medical unit)-1 mg Branch Tab ASPIRIN 2023-0 Yes 81mg 81 mg Univers LOW-STRENGT 9-06 daily. ity of H ORAL 14:29: [place] [address] Medical Branch metFORMIN 2023-0 Yes 500mg Take 1 Unive rs 500 mg 9-06 tablet by ity of tablet 14:29: mouth in [place] [address] the Medical morning. Branch empaglifloz 2023-0 Yes 10mg Take 1 Univ ers in 9-06 tablet by ity of (JARDIANCE) 14:29: mouth in [place] 10 mg Tab 51 the Medical morning. Branch semaglutide 2023-0 Yes 1mg inject 1 [place] (OZEMPIC) 1 9-06 mg under ity of mg/dose (4 14:29: the skin [place] mg/3 mL) 51 weekly. Medical PnIj Sundays Branch azilsartan 2023-0 Yes Take by Univ ers med-chlorth 9 mouth ity of alidone 14:29: daily. [place] (EDARBYCLOR 51 Medical ) 40-12.5 Branch mg Tab vitamin 2023-0 Yes Take by [facility] D3-folic 9 mouth. ity of acid 125 14:29: [place] mcg (5,000 51 Medical unit)-1 mg Branch Tab ASPIRIN 3-0 Yes 81mg [address] [facility] LOW-STRENGT 9 daily. ity of H ORAL 14:29: [place] [address] Medical Branch metFORMIN 2023-0 Yes 500mg Take 1 Unive rs 500 mg 9- tablet by ity of tablet 14:29: mouth in [place] [address] the Medical morning. Branch empaglifloz 2023-0 Yes 10mg Take 1 Univ ers in - tablet by ity of (JARDIANCE) 14:29: mouth in [place] 10 mg Tab 51 the Medical morning. Branch semaglutide 2023-0 Yes 1mg inject 1 [place] (OZEMPIC) 1 9-06 mg under ity of mg/dose (4 14:29: the skin [place] mg/3 mL) 51 weekly. Medical PnIj Sundays Branch azilsartan 2023-0 Yes Take by Univ ers med-chlorth 9-06 mouth ity of alidone 14:29: daily. [place] (EDARBYCLOR 51 Medical ) 40-12.5 Branch mg Tab vitamin 2023-0 Yes Take by [facility] D3-folic 9 mouth. ity of acid 125 14:29: [place] mcg (5,000 51 Medical unit)-1 mg Branch Tab metFORMIN 2023-0 Yes 500mg Take 1 Unive rs 500 mg 7-11 tablet by ity of tablet 14:07: mouth in [place] [address] the Medical morning. Branch metFORMIN 2023-0 Yes 500mg Take 1 Unive rs 500 mg 7-11 tablet by ity of tablet 14:07: mouth in [place] [address] the Medical morning. Branch metFORMIN 2023-0 Yes 500mg Take 1 Unive rs 500 mg 7-11 tablet by ity of tablet 14:07: mouth in [place] [address] the Medical morning. Branch metFORMIN 2023-0 Yes 500mg Take 1 Unive rs 500 mg 7-11 tablet by ity of tablet 14:07: mouth in [place] [address] the Medical morning. Branch metFORMIN 2023-0 Yes 500mg Take 1 Unive rs 500 mg 7-11 tablet by ity of tablet 14:07: mouth in [place] [address] the Medical morning. Branch metFORMIN 2023-0 Yes 500mg Take 1 Unive rs 500 mg 7-11 tablet by ity of tablet 14:07: mouth in [place] [address] the Medical morning. Branch metFORMIN 2023-0 Yes 500mg Take 1 Unive rs 500 mg 7-11 tablet by ity of tablet 14:07: mouth in [place] [address] the Medical morning. Branch metFORMIN 2023-0 Yes 500mg Take 1 Unive rs 500 mg 7-11 tablet by ity of tablet 14:07: mouth in [place] [address] the Medical morning. Branch metFORMIN 2023-0 Yes 500mg Take 1 Unive rs 500 mg 7-11 tablet by ity of tablet 14:07: mouth in [place] [address] the Medical morning. Branch metFORMIN 2023-0 Yes 500mg Take 1 Unive rs 500 mg 7-11 tablet by ity of tablet 14:07: mouth in [place] [address] the Medical morning. Branch metFORMIN 2023-0 Yes 500mg Take 1 Unive rs 500 mg 7-11 tablet by ity of tablet 14:07: mouth in [place] [address] the Medical morning. Branch vitamin 2023-0 Yes Take by [facility] D3-folic 7-11 mouth. ity of acid 125 14:05: [place] mcg (5,000 00 Medical unit)-1 mg Branch Tab vitamin 2023-0 Yes Take by [facility] D3-folic 7-11 mouth. ity of acid 125 14:05: [place] mcg (5,000 00 Medical unit)-1 mg Branch Tab vitamin 2023-0 Yes Take by [facility] D3-folic 7-11 mouth. ity of acid 125 14:05: [place] mcg (5,000 00 Medical unit)-1 mg Branch Tab vitamin 2023-0 Yes Take by [facility] D3-folic 7-11 mouth. ity of acid 125 14:05: [place] mcg (000 00 Medical unit)-1 mg Branch Tab vitamin 2023-0 Yes Take by Univers D3-folic 7-11 mouth. ity of acid 125 14:05: [place] mcg ( 00 Medical unit)-1 mg Branch Tab vitamin 2023-0 Yes Take by [facility] D3-folic 7-11 mouth. ity of acid 125 14:05: [place] mcg ( Medical unit)-1 mg Branch Tab vitamin 2023-0 Yes Take by [facility] D3-folic 7-11 mouth. ity of acid 125 14:05: [place] mcg ( Medical unit)-1 mg Branch Tab vitamin 2023-0 Yes Take by [facility] D3-folic 7-11 mouth. ity of acid 125 14:05: [place] mcg ( Medical unit)-1 mg Branch Tab vitamin 2023-0 Yes Take by [facility] D3-folic 7-11 mouth. ity of acid 125 14:05: [place] mcg ( Medical unit)-1 mg Branch Tab vitamin 2023-0 Yes Take by [facility] D3-folic 7-11 mouth. ity of acid 125 14:05: [place] mcg ( Medical unit)-1 mg Branch Tab vitamin 2023-0 Yes Take by [facility] D3-folic 7-11 mouth. ity of acid 125 14:05: [place] mcg ( Medical unit)-1 mg Branch Tab azilsartan 2023-0 Yes Take by [facility] ers med-chlorth -11 mouth ity of alidone 14:04: daily. [place] (EDARBYCLOR 11 Medical ) 40-12.5 Branch mg Tab ASPIRIN 2023-0 Yes 81mg [address] [facility] LOW-STRENGT -11 daily. ity of H ORAL 14:04: [place] [address] Medical Branch empaglifloz 3-0 Yes 10mg Take 1 Univ ers in 7-11 tablet by ity of (JARDIANCE) 14:04: mouth in [place] 10 mg Tab 11 the Medical morning. Branch semaglutide 3-0 Yes 1mg inject 1 [place] (OZEMPIC) 1 7-11 mg under ity of mg/dose (4 14:04: the skin [place] mg/3 mL) 11 weekly. Medical [facility] Branch azilsartan 2022-0 Yes Take by Uni vers med-chlorth 7-11 mouth ity of alidone 14:04: daily. [place] ([place]AR[place] [address] [place] [address] ) 40-12.5 Branch mg Tab ASPIRIN 3-0 Yes 81mg 81 mg [facility] LOW-STRENGT 7-11 daily. ity of H ORAL 14:04: [place] [address] Medical Branch empaglifloz 2022-0 Yes 10mg Take 1 Univ ers in 7-11 tablet by ity of (JARDIANCE) 14:04: mouth in [place] 10 mg Tab 11 the Medical morning. Branch semaglutide 2022-0 Yes 1mg inject 1 [place] (OZEMPIC) 1 7-11 mg under ity of mg/dose (4 14:04: the skin [place] mg/3 mL) 11 weekly. Medical [facility] Branch azilsartan 2022-0 Yes Take by Univ ers med-chlorth 7-11 mouth ity of alidone 14:04: daily. [place] (AR[place]CL[place] [address] [place] [address] ) 40-12.5 Branch mg Tab ASPIRIN 3-0 Yes 81mg 81 mg [facility] LOW-STRENGT 7-11 daily. ity of H ORAL 14:04: [place] [address] Medical Branch empaglifloz 2022-0 Yes 10mg Take 1 Univ ers in 7-11 tablet by ity of (JARDIANCE) 14:04: mouth in [place] 10 mg Tab 11 the Medical morning. Branch semaglutide 2022-0 Yes 1mg inject 1 [place] (OZEMPIC) 1 7-11 mg under ity of mg/dose (4 14:04: the skin [place] mg/3 mL) 11 weekly. Medical [facility] Branch azilsartan 2022-0 Yes Take by Univ ers med-chlorth 7-11 mouth ity of alidone 14:04: daily. [place] ([place] [address] [place] [address] ) 40-12.5 Branch mg Tab ASPIRIN 3-0 Yes 81mg 81 mg [facility] LOW-STRENGT 7-11 daily. ity of H ORAL 14:04: [place] [address] Medical Branch empaglifloz 3-0 Yes 10mg Take 1 Univ ers in 7-11 tablet by ity of (JARDIANCE) 14:04: mouth in [place] 10 mg Tab 11 the Medical morning. Branch semaglutide 2023-0 Yes 1mg inject 1 [place] (OZEMPIC) 1 7-11 mg under ity of mg/dose (4 14:04: the skin [place] mg/3 mL) 11 weekly. Medical PnIj Branch azilsartan 3-0 Yes Take by Univ ers med-chlorth 7-11 mouth ity of alidone 14:04: daily. [place] ([place] [address] [place] [address] ) 40-12.5 Branch mg Tab ASPIRIN 2023-0 Yes 81mg 81 mg [facility] LOW-STRENGT 7-11 daily. ity of H ORAL 14:04: [place] [address] Medical Branch empaglifloz 3-0 Yes 10mg Take 1 Univ ers in 03-15 tablet by ity of (JARDIANCE) 14:04: mouth in [place] 10 mg Tab 11 the Medical morning. Branch semaglutide 2023-0 Yes 1mg inject 1 [place] (OZEMPIC) 1 7-11 mg under ity of mg/dose (4 14:04: the skin [place] mg/3 mL) 11 weekly. Medical PnIj Branch azilsartan 2022-0 Yes Take by Univ ers med-chlorth 7-11 mouth ity of alidone 14:04: daily. [place] ([place] [address] [place] [address] ) 40-12.5 Branch mg Tab ASPIRIN 3-0 Yes 81mg 81 mg [facility] LOW-STRENGT 7-11 daily. ity of H ORAL 14:04: [place] [address] Medical Branch empaglifloz 3-0 Yes 10mg Take 1 Univ ers in 03-15 tablet by ity of (JARDIANCE) 14:04: mouth in [place] 10 mg Tab 11 the Medical morning. Branch semaglutide 2023-0 Yes 1mg inject 1 [place] (OZEMPIC) 1 7-11 mg under ity of mg/dose (4 14:04: the skin [place] mg/3 mL) 11 weekly. Medical PnIj Branch azilsartan 2023-0 Yes Take by Univ ers med-chlorth 7-11 mouth ity of alidone 14:04: daily. [place] ([place] [address] [place] [address] ) 40-12.5 Branch mg Tab ASPIRIN 2023-0 Yes 81mg 81 mg Univers LOW-STRENGT 7-11 daily. ity of H ORAL 14:04: [place] [address] Medical Branch empaglifloz 2022-0 Yes 10mg Take 1 Univ ers in 7 tablet by ity of (JARDIANCE) 14:04: mouth in [place] 10 mg Tab 11 the Medical morning. Branch semaglutide 2022-0 Yes 1mg inject 1 [place] (OZEMPIC) 1 7-11 mg under ity of mg/dose (4 14:04: the skin [place] mg/3 mL) 11 weekly. Medical PnIj Branch azilsartan 2022-0 Yes Take by Univ ers med-chlorth 7- mouth ity of alidone 14:04: daily. [place] (EDARBYCLOR 11 [facility] ) 40-12.5 Branch mg Tab ASPIRIN 2022-0 Yes 81mg 81 mg Univers LOW-STRENGT 7-11 daily. ity of H ORAL 14:04: [place] [address] Medical Branch empaglifloz 2022-0 Yes 10mg Take 1 Univ ers in 03-15 tablet by ity of (JARDIANCE) 14:04: mouth in [place] 10 mg Tab 11 the Medical morning. Branch semaglutide 2022-0 Yes 1mg inject 1 [place] (OZEMPIC) 1 7-11 mg under ity of mg/dose (4 14:04: the skin [place] mg/3 mL) 11 weekly. Medical PnIj Branch azilsartan 2022-0 Yes Take by Univ ers med-chlorth 03-15 mouth ity of alidone 14:04: daily. [place] ([place] [address] [place] [address] ) 40-12.5 Branch mg Tab ASPIRIN 2022-0 Yes 81mg 81 mg Univers LOW-STRENGT 7-11 daily. ity of H ORAL 14:04: [place] [address] Medical Branch empaglifloz 2022-0 Yes 10mg Take 1 Univ ers in 7- tablet by ity of (JARDIANCE) 14:04: mouth in [place] 10 mg Tab 11 the Medical morning. Branch semaglutide 2023-0 Yes 1mg inject 1 [place] (OZEMPIC) 1 7-11 mg under ity of mg/dose (4 14:04: the skin [place] mg/3 mL) 11 weekly. Medical PnIj Branch azilsartan 2022-0 Yes Take by Univ ers med-chlorth 03-15 mouth ity of alidone 14:04: daily. [place] (EDARBYCLOR 11 Medical ) 40-12.5 Branch mg Tab ASPIRIN 2022-0 Yes 81mg 81 mg Univers LOW-STRENGT 03-15 daily. ity of H ORAL 14:04: [address] Branch empaglifloz 2022-0 Yes 10mg Take 1 Univ ers in 03-15 tablet by ity of (JARDIANCE) 14:04: mouth in [place] 10 mg Tab 11 the Medical morning. Branch semaglutide 0 Yes 1mg inject 1 [place] (OZEMPIC) 1 7-11 mg under ity of mg/dose (4 14:04: the skin [place] mg/3 mL) 11 weekly. Medical [facility] Branch azilsartan 0 Yes Take by Univ ers med-chlorth 03-15 mouth ity of alidone 14:04: daily. [place] (ED[facility]CL[facility] 11 [facility] ) 40-12.5 Branch mg Tab ASPIRIN 2022-0 Yes 81mg 81 mg [facility] LOW-STRENGT 03-15 daily. ity of H ORAL 14:04: [place] [address] Medical Branch empaglifloz Yes 10mg Take 1 Univ ers in 03-15 tablet by ity of (JARDIANCE) 14:04: mouth in [place] 10 mg Tab 11 the Medical morning. Branch semaglutide Yes 1mg inject 1 [place] (OZEMPIC) 1 7-11 mg under ity of mg/dose (4 14:04: the skin [place] mg/3 mL) 11 weekly. Medical PnIj Branch dulaglutide 0 2022- No inject Uni vers (TRULICITY) 03-15 under the it y of 1.5 mg/0.5 14:03: 00:00 skin. [place] [facility] PnIj 11 :00 Medical Branch dulaglutide 2022- No inject Uni vers (TRULICITY) 03-15 under the it y of 1.5 mg/0.5 14:03: 00:00 skin. [place] mL PnIj 11 :00 [facility] Branch dulaglutide 2022- No inject Uni vers (TRULICITY) 03-15 under the it y of 1.5 mg/0.5 14:03: 00:00 skin. [place] mL PnIj 11 :00 Medical Branch cyclobenzap 2023-0 Yes 10mg Take 1 Univ ers rine 10 mg 4-19 tablet by ity of tablet 00:00: mouth as [place] 00 needed. Medical Branch cyclobenzap 2023-0 Yes 10mg Take 1 Univ ers rine 10 mg 4-19 tablet by ity of tablet 00:00: mouth as [place] 00 needed. Medical Branch cyclobenzap 2023-0 Yes 10mg Take 1 Univ ers rine 10 mg 4-19 tablet by ity of tablet 00:00: mouth as [place] 00 needed. Medical Branch cyclobenzap 2023-0 Yes 10mg Take 1 Univ ers rine 10 mg 4-19 tablet by ity of tablet 00:00: mouth as [place] 00 needed. Medical Branch cyclobenzap 2023-0 Yes 10mg Take 1 Univ ers rine 10 mg 4-19 tablet by ity of tablet 00:00: mouth as [place] 00 needed. Medical Branch cyclobenzap 2023-0 Yes 10mg Take 1 Univ ers rine 10 mg 4-19 tablet by ity of tablet 00:00: mouth as [place] 00 needed. Medical Branch cyclobenzap 2023-0 Yes 10mg Take 1 Univ ers rine 10 mg 4-19 tablet by ity of tablet 00:00: mouth as [place] 00 needed. Medical Branch cyclobenzap 2023-0 Yes 10mg Take 1 Univ ers rine 10 mg 4-19 tablet by ity of tablet 00:00: mouth as [place] 00 needed. Medical Branch cyclobenzap 2023-0 Yes 10mg Take 1 Univ ers rine 10 mg 4-19 tablet by ity of tablet 00:00: mouth as [place] 00 needed. Medical Branch cyclobenzap 2023-0 Yes 10mg Take 1 Univ ers rine 10 mg 4-19 tablet by ity of tablet 00:00: mouth as [place] 00 needed. Medical Branch cyclobenzap 2023-0 Yes 10mg Take 1 Univ ers rine 10 mg 4-19 tablet by ity of tablet 00:00: mouth as [place] 00 needed. Medical Branch cyclobenzap 2023-0 Yes 10mg Take 1 Univ ers rine 10 mg 4-19 tablet by ity of tablet 00:00: mouth as [place] 00 needed. Medical Branch cyclobenzap 2023-0 Yes 10mg Take 1 Univ ers rine 10 mg 4-19 tablet by ity of tablet 00:00: mouth as [place] 00 needed. Medical Branch cyclobenzap 2022-0 Yes 10mg Take 1 Univ ers rine 10 mg 4-19 tablet by ity of tablet 00:00: mouth as [place] 00 needed. Medical Branch cyclobenzap 0 Yes 10mg Take 1 Univ ers rine 10 mg 4-19 tablet by ity of tablet 00:00: mouth as [place] 00 needed. [facility] cyclobenzap 0 Yes 10mg Take 1 Univ ers rine 10 mg 4-19 tablet by ity of tablet 00:00: mouth as [place] 00 needed. [facility] cyclobenzap 0 Yes 10mg Take 1 Univ ers rine 10 mg 4-19 tablet by ity of tablet 00:00: mouth as [place] 00 needed. [facility] traMADoL 50 2021-09 Yes 50mg Take 1 Univ ers mg tablet 2-07 tablet by ity o f 00:00: mouth as [place] 00 needed. [facility] traMADoL 50 2021-09 Yes 50mg Take 1 Univ ers mg tablet 2-07 tablet by ity o f 00:00: mouth as [place] 00 needed. [facility] traMADoL 50 2021-09 Yes 50mg Take 1 Univ ers mg tablet 2-07 tablet by ity o f 00:00: mouth as [place] 00 needed. [facility] traMADoL 50 2021-09 Yes 50mg Take 1 Univ ers mg tablet 2-07 tablet by ity o f 00:00: mouth as [place] 00 needed. [facility] traMADoL 50 2021-09 Yes 50mg Take 1 Univ ers mg tablet 2-07 tablet by ity o f 00:00: mouth as [place] 00 needed. [facility] traMADoL 50 2021-09 Yes 50mg Take 1 Univ ers mg tablet 2-07 tablet by ity o f 00:00: mouth as [place] 00 needed. [facility] traMADoL 50 2021-09 Yes 50mg Take 1 Univ ers mg tablet 2-07 tablet by ity o f 00:00: mouth as [place] 00 needed. [facility] traMADoL 50 2021-09 Yes 50mg Take 1 Univ ers mg tablet 2-07 tablet by ity o f 00:00: mouth as [place] 00 needed. [facility] traMADoL 50 2021-09 Yes 50mg Take 1 Univ ers mg tablet 2-07 tablet by ity o f 00:00: mouth as [place] 00 needed. [facility] traMADoL 50 2021-09 Yes 50mg Take 1 Univ ers mg tablet 2-07 tablet by ity o f 00:00: mouth as [place] 00 needed. [facility] traMADoL 50 2021-09 Yes 50mg Take 1 Univ ers mg tablet 2-07 tablet by ity o f 00:00: mouth as [place] 00 needed. [facility] traMADoL 50 2021-09 Yes 50mg Take 1 Univ ers mg tablet 2-07 tablet by ity o f 00:00: mouth as [place] 00 needed. [facility] traMADoL 50 2021-09 Yes 50mg Take 1 Univ ers mg tablet 2-07 tablet by ity o f 00:00: mouth as [place] 00 needed. [facility] traMADoL 50 2021-09 Yes 50mg Take 1 Univ ers mg tablet 2-07 tablet by ity o f 00:00: mouth as [place] 00 needed. [facility] traMADoL 50 2021-09 Yes 50mg Take 1 Univ ers mg tablet 2-07 tablet by ity o f 00:00: mouth as [place] 00 needed. [facility] traMADoL 50 2021-09 Yes 50mg Take 1 Univ ers mg tablet 2-07 tablet by ity o f 00:00: mouth as [place] 00 needed. [facility] traMADoL 50 2021-09 Yes 50mg Take 1 Univ ers mg tablet 2-07 tablet by ity o f 00:00: mouth as [place] 00 needed. [facility] Fluticasone Yes 1 spray, Me moria propionate 3-19 NASAL, l 0.05 13:35: BID, # 16 [place] MG/ACTUAT 00 gm, 0 Metered Refill(s), Dose Nasal Pharmacy: [place] [facility] [Flon[facility]] [facility] 546 montelukast Yes 10 mg = 1 M emoria 10 MG Oral 3-19 tab, PO, l Tablet 13:35: Bedtime, # [place] nn [Singulair] 00 30 tab, 0 Refill(s), Pharmacy: [facility] 546 Ipratropium Yes 2 spray, Me moria [place] 3-19 NASAL, l 0.042 13:35: TID, PRN [place] MG/ACTUAT 00 for cold Metered symptoms, Dose Nasal [place] both [Atrovent] nostrils, X 30 day, # 1 ea, 0 Refill(s), Pharmacy: [facility] 546 Fluticasone Yes 1 spray, Me moria propionate 3-19 NASAL, l 0.05 13:35: BID, # 16 [place] MG/ACTUAT 00 gm, 0 Metered Refill(s), Dose Nasal Pharmacy: [place] [facility] [[facility] Yes 10 mg = 1 M emoria 10 MG Oral 3-19 tab, PO, l Tablet 13:35: Bedtime, # [place] nn [Singulair] 00 30 tab, 0 Refill(s), Pharmacy: [facility] 546 Ipratropium Yes 2 spray, Me moria [place] 3-19 NASAL, l 0.042 13:35: TID, PRN [place] MG/ACTUAT 00 for cold Metered symptoms, Dose Nasal [place] in [place] both [Atrovent] nostrils, X 30 day, # 1 ea, 0 Refill(s), Pharmacy: [facility] 546 Fluticasone Yes 1 spray, Me moria propionate 3-19 NASAL, l 0.05 13:35: BID, # 16 [place] MG/ACTUAT 00 gm, 0 Metered Refill(s), Dose Nasal Pharmacy: [place] [facility] [Flonase] [facility] 546 montelust Yes 10 mg = 1 M emoria 10 MG Oral 3-19 tab, PO, l Tablet 13:35: Bedtime, # [place] nn [Singulair] 00 30 tab, 0 Refill(s), Pharmacy: [facility] 546 Ipratropium Yes 2 spray, Me moria [place] 3-19 NASAL, l 0.042 13:35: TID, PRN [place] MG/ACTUAT 00 for cold Metered symptoms, Dose Nasal [place] in [place] both [Atrovent] nostrils, X 30 day, # 1 ea, 0 Refill(s), Pharmacy: [facility] 546 Fluticasone Yes 1 spray, Me moria propionate 3-19 NASAL, l 0.05 13:35: BID, # 16 [place] MG/ACTUAT 00 gm, 0 Metered Refill(s), Dose Nasal Pharmacy: [place] [facility] [Flonase] [facility] 546 montelukast Yes 10 mg = 1 M emoria 10 MG Oral 3-19 tab, PO, l Tablet 13:35: Bedtime, # [place] nn [Singulair] 00 30 tab, 0 Refill(s), Pharmacy: [facility] 546 Ipratropium Yes 2 spray, Me moria [place] 3-19 NASAL, l 0.042 13:35: TID, PRN [place] MG/ACTUAT 00 for cold Metered symptoms, Dose Nasal [place] in [place] both [Atrovent] nostrils, X 30 day, # 1 ea, 0 Refill(s), Pharmacy: [facility] 546 Fluticasone Yes 1 spray, Me moria propionate 3-19 NASAL, l 0.05 13:35: BID, # 16 [place] MG/ACTUAT 00 gm, 0 Metered Refill(s), Dose Nasal Pharmacy: [place] [facility] [Flonase] [facility]acy 546 montelukast Yes 10 mg = 1 M emoria 10 MG Oral 3-19 tab, PO, l Tablet 13:35: Bedtime, # [place] nn [Singulair] 00 30 tab, 0 Refill(s), Pharmacy: [facility] 546 Fluticasone Yes 1 spray, Me moria propionate 3-19 NASAL, l 0.05 13:35: BID, # 16 [place] MG/ACTUAT 00 gm, 0 Metered Refill(s), Dose Nasal Pharmacy: [place] [facility] [Flonase] [facility] 546 montelukast Yes 10 mg = 1 M emoria 10 MG Oral 3-19 tab, PO, l Tablet 13:35: Bedtime, # [place] nn [Singulair] 00 30 tab, 0 Refill(s), Pharmacy: [facility] 546 Ipratropium Yes 2 spray, Me moria [place] 3-19 NASAL, l 0.042 13:35: TID, PRN [place] MG/ACTUAT 00 for cold Metered symptoms, Dose Nasal [place] in [place] both [Atrovent] nostrils, X 30 day, # 1 ea, 0 Refill(s), Pharmacy: [facility] 546 Ipratropium Yes 2 spray, Me moria [place] 3-19 NASAL, l 0.042 13:35: TID, PRN [place] MG/ACTUAT 00 for cold Metered symptoms, Dose Nasal [place] in [place] both [Atrovent] nostrils, X 30 day, # 1 ea, 0 Refill(s), Pharmacy: [facility] 546 Fluticasone Yes 1 spray, Me moria propionate 3-19 NASAL, l 0.05 13:35: BID, # 16 [place] MG/ACTUAT 00 gm, 0 Metered Refill(s), Dose Nasal Pharmacy: [place] [facility] [Flonase] [facility] 546 montelukast Yes 10 mg = 1 M emoria 10 MG Oral 3-19 tab, PO, l Tablet 13:35: Bedtime, # [place] nn [Singulair] 00 30 tab, 0 Refill(s), Pharmacy: [facility] 546 Ipratropium Yes 2 spray, Me moria [place] 3-19 NASAL, l 0.042 13:35: TID, PRN [place] MG/ACTUAT 00 for cold Metered symptoms, Dose Nasal [place] in [place] both [Atrovent] nostrils, X 30 day, # 1 ea, 0 Refill(s), Pharmacy: [facility] 546 Fluticasone Yes 1 spray, Me moria propionate 3-19 NASAL, l 0.05 13:35: BID, # 16 [place] MG/ACTUAT 00 gm, 0 Metered Refill(s), Dose Nasal Pharmacy: [place] [facility] [Flonase] [facility] 546 montelukast Yes 10 mg = 1 M emoria 10 MG Oral 3-19 tab, PO, l Tablet 13:35: Bedtime, # [place] nn [Singulair] 00 30 tab, 0 Refill(s), Pharmacy: [facility] 546 Ipratropium Yes 2 spray, Me moria [place] 3-19 NASAL, l 0.042 13:35: TID, PRN [place] MG/ACTUAT 00 for cold Metered symptoms, Dose Nasal [place] in [place] both [Atrovent] nostrils, X 30 day, # 1 ea, 0 Refill(s), Pharmacy: [facility] 546 Vitamin D3 Yes 0 Memoria 3-19 Refill(s) l 13:15: [place] 00 Vitamin D3 2019-0 Yes 0 Memoria 3-19 Refill(s) l 13:15: [place] 00 Vitamin D3 20190 Yes 0 Memoria 3-19 Refill(s) l 13:15: [place] 00 Vitamin D3 2019-0 Yes 0 Memoria 3-19 Refill(s) l 13:15: Vitamin D3 0 Yes 0 Memoria 3-19 Refill(s) l 13:15: [place] 00 Vitamin D3 20190 Yes 0 Memoria 3-19 Refill(s) l 13:15: [place] 00 Vitamin D3 0 Yes 0 Memoria 3-19 Refill(s) l 13:15: [place] 00 Vitamin D3 2019-0 Yes 0 Memoria 3-19 Refill(s) l 13:15: [place] 00 meloxicam 2017-09 No 7.5 mg = 1 Me moria 7.5 mg oral 2-19 tab, PO, l tablet 16:36: Daily, prn [place] nn 00 pain/infla mmation with food, # 30 tab, 0 Refill(s), Pharmacy: [facility] meloxicam 2017-09 No 7.5 mg = 1 Me moria 7.5 mg oral 2-19 tab, PO, l tablet 16:36: Daily, prn [place] nn 00 pain/infla mmation with food, # 30 tab, 0 Refill(s), Pharmacy: [facility] 546 meloxicam 2017-09 No 7.5 mg = 1 Me moria 7.5 mg oral 2-19 tab, PO, l tablet 16:36: Daily, prn [place] nn 00 pain/infla mmation with food, # 30 tab, 0 Refill(s), Pharmacy: [facility] 546 meloxicam 2017-09 No 7.5 mg = 1 Me moria 7.5 mg oral 2-19 tab, PO, l tablet 16:36: Daily, prn [place] nn 00 pain/infla mmation with food, # 30 tab, 0 Refill(s), Pharmacy: [facility] 546 meloxicam 2017-09 No 7.5 mg = 1 Me moria 7.5 mg oral 2-19 tab, PO, l tablet 16:36: Daily, prn [place] nn 00 pain/infla mmation with food, # 30 tab, 0 Refill(s), Pharmacy: [facility] 546 meloxicam 2017-09 No 7.5 mg = 1 Me moria 7.5 mg oral 2-19 tab, PO, l tablet 16:36: Daily, prn [place] nn 00 pain/infla mmation with food, # 30 tab, 0 Refill(s), Pharmacy: [facility] 546 meloxicam 2017-09 No 7.5 mg = 1 Me moria 7.5 mg oral 2-19 tab, PO, l tablet 16:36: Daily, prn [place] nn 00 pain/infla mmation with food, # 30 tab, 0 Refill(s), Pharmacy: [facility] 546 meloxicam 2017-09 No 7.5 mg = 1 Me moria 7.5 mg oral 2-19 tab, PO, l tablet 16:36: Daily, prn [place] nn 00 pain/infla mmation with food, # 30 tab, 0 Refill(s), Pharmacy: [facility] 546 empaglifloz 2017-09 Yes 25 mg = 1 M emoria in 25 MG 2-19 tab, PO, l Oral Tablet 16:16: Daily, 0 [place] [Jardiance] 00 Refill(s) tizanidine 2017-09 No 8 mg = 2 Mem oria 4 mg oral 2-19 tab, PO, l tablet 16:16: Q8H, 0 [place] 00 Refill(s) Metformin 2017-09 Yes 500 mg = 1 Me moria hydrochlori 2-19 tab, PO, l de 500 MG 16:16: BID, 0 [place] n Oral Tablet 00 Refill(s) empaglifloz 2017-09 Yes 25 mg = 1 M emoria in 25 MG 2-19 tab, PO, l Oral Tablet 16:16: Daily, 0 [place] [Jardiance] 00 Refill(s) tizanidine 2017-09 No 8 mg = 2 Mem oria 4 mg oral 2-19 tab, PO, l tablet 16:16: Q8H, 0 [place] 00 Refill(s) Metformin 2017-09 Yes 500 mg = 1 Me moria hydrochlori 2-19 tab, PO, l de 500 MG 16:16: BID, 0 [place] n Oral Tablet 00 Refill(s) empaglifloz 2017-09 Yes 25 mg = 1 M emoria in 25 MG 2-19 tab, PO, l Oral Tablet 16:16: Daily, 0 [place] [Jardiance] 00 Refill(s) tizanidine 2017-09 No 8 mg = 2 Mem oria 4 mg oral 2-19 tab, PO, l tablet 16:16: Q8H, 0 [place] 00 Refill(s) Metformin 2017-09 Yes 500 mg = 1 Me moria hydrochlori 2-19 tab, PO, l de 500 MG 16:16: BID, 0 [place] n Oral Tablet 00 Refill(s) empaglifloz 2017-09 Yes 25 mg = 1 M emoria in 25 MG 2-19 tab, PO, l Oral Tablet 16:16: Daily, 0 [place] [Jardiance] 00 Refill(s) tizanidine 2017-09 No 8 mg = 2 Mem oria 4 mg oral 2-19 tab, PO, l tablet 16:16: Q8H, 0 [place] 00 Refill(s) Metformin 2017-09 Yes 500 mg = 1 Me moria hydrochlori 2-19 tab, PO, l de 500 MG 16:16: BID, 0 [place] n Oral Tablet 00 Refill(s) empaglifloz 2017-09 Yes 25 mg = 1 M emoria in 25 MG 2-19 tab, PO, l Oral Tablet 16:16: Daily, 0 [place] [Jardiance] 00 Refill(s) tizanidine 2017-09 No 8 mg = 2 Mem oria 4 mg oral 2-19 tab, PO, l tablet 16:16: Q8H, 0 [place] 00 Refill(s) Metformin 2017-09 Yes 500 mg = 1 Me moria hydrochlori 2-19 tab, PO, l de 500 MG 16:16: BID, 0 [place] n Oral Tablet 00 Refill(s) empaglifloz 2017-09 Yes 25 mg = 1 M emoria in 25 MG 2-19 tab, PO, l Oral Tablet 16:16: Daily, 0 [place] [Jardiance] 00 Refill(s) tizanidine 2017-09 No 8 mg = 2 Mem oria 4 mg oral 2-19 tab, PO, l tablet 16:16: Q8H, 0 [place] 00 Refill(s) Metformin 2017-09 Yes 500 mg = 1 Me moria hydrochlori 2-19 tab, PO, l de 500 MG 16:16: BID, 0 [place] n Oral Tablet 00 Refill(s) empaglifloz 2017-09 Yes 25 mg = 1 M emoria in 25 MG 2-19 tab, PO, l Oral Tablet 16:16: Daily, 0 [place] [Jardiance] 00 Refill(s) tizanidine 2017-09 No 8 mg = 2 Mem oria 4 mg oral 2-19 tab, PO, l tablet 16:16: Q8H, 0 [place] 00 Refill(s) Metformin 2017-09 Yes 500 mg = 1 Me moria hydrochlori 2-19 tab, PO, l de 500 MG 16:16: BID, 0 [place] Oral Tablet 00 Refill(s) empaglifloz 2017-09 Yes 25 mg = 1 M emoria in 25 MG 2-19 tab, PO, l Oral Tablet 16:16: Daily, 0 [place] [Jardiance] 00 Refill(s) tizanidine 2017-09 No 8 mg = 2 Mem oria 4 mg oral 2-19 tab, PO, l tablet 16:16: Q8H, 0 [place] 00 Refill(s) Metformin 2017-09 Yes 500 mg = 1 Me moria hydrochlori 2-19 tab, PO, l de 500 MG 16:16: BID, 0 [place] n Oral Tablet 00 Refill(s) empaglifloz Yes 10mg Take 10 mg Univers in 05-09 by mouth ity of ([place]) 13:22: [place] 10 mg Tab 22 [facility] empaglifloz Yes 10mg Take 10 mg Univers in 05-09 by mouth ity of ([place]) 13:22: [place] 10 mg Tab 22 [facility] empaglifloz Yes 10mg Take 10 mg Univers in 05-09 by mouth ity of ([place]) 13:22: [place]. [place] 10 mg Tab 22 [facility] ASPIRIN Yes 81mg 81 mg Univers LOW-STRENGT 05-09 daily. ity of H ORAL 13:22: [place] 21 [facility] dulaglutide 0 Yes inject Univ ers (TRULICITY) 9-04 under the ity of 1.5 mg/0.5 13:22: skin. [address] metFORMIN 0 Yes 500mg Take 500 Uni vers 500 mg 9-04 mg by ity of tablet 13:22: mouth 2 [place] [address] (two) Medical times [place] daily with meals. ASPIRIN Yes 81mg 81 mg Univers LOW-STRENGT 9-04 daily. ity of H ORAL 13:22: [address] dulaglutide 0 Yes inject Univ ers (TRULICITY) 9-04 under the ity of 1.5 mg/0.5 13:22: skin. [address] metFORMIN Yes 500mg Take 500 Uni vers 500 mg 9-04 mg by ity of tablet 13:22: mouth 2 [place] [address] ([facility]) [facility] daily with meals. ASPIRIN 2017- Yes 81mg 81 mg Univers LOW-STRENGT 9-04 daily. ity of H ORAL 13:22: [address] dulaglutide 0 Yes inject Univ ers (TRULICITY) 9-04 under the ity of 1.5 mg/0.5 13:22: skin. [address] metFORMIN Yes 500mg Take 500 Uni vers 500 mg 9-04 mg by ity of tablet 13:22: mouth 2 [place] [address] ([facility]) [facility] daily with meals. benzonatate Yes 100 mg = 1 Memoria 100 MG Oral 2-16 cap, PO, l Capsule 14:19: Bedtime, [place] graff [Tessalon 00 prn cough, Perles] # 15 cap, 0 Refill(s), Pharmacy: [facility] 546 {6 No See Memoria (Azithromyc 2-16 Instructio l in 250 MG 14:19: ns, Take 2 [place] [facility] Oral Tablet 00 tablets by [Zithromax] mouth the ) } Pack first day [Z-PAKS] then 1 tablet by mouth days 2-5., X 5 day, # 6 tab, 0 Refill(s), Pharmacy: [facility] 546 benzonatate Yes 100 mg = 1 Memoria 100 MG Oral 2-16 cap, PO, l Capsule 14:19: Bedtime, [place] graff [Tessalon 00 prn cough, Perles] # 15 cap, 0 Refill(s), Pharmacy: [facility] 546 { No See Memoria (Azithromyc 2-16 Instructio l in 250 MG 14:19: ns, Take 2 [place] Oral Tablet 00 tablets by [Zithromax] mouth the ) } Pack first day [Z-PAKS] then 1 tablet by mouth days 2-5., X 5 day, # 6 tab, 0 Refill(s), Pharmacy: [place] [id number] benzonatate Yes 100 mg = 1 Memoria 100 MG Oral 2-16 cap, PO, l Capsule 14:19: Bedtime, [place] graff [Tessalon 00 prn cough, Perles] # 15 cap, 0 Refill(s), Pharmacy: [facility] 546 { No See Memoria (Azithromyc 2-16 Instructio l in 250 MG 14:19: ns, Take 2 [place] Oral Tablet 00 tablets by [Zithromax] mouth the ) } Pack first day [Z-PAKS] then 1 tablet by mouth days 2-5., X 5 day, # 6 tab, 0 Refill(s), Pharmacy: [place] [id number] benzonatate Yes 100 mg = 1 Memoria 100 MG Oral 2-16 cap, PO, l Capsule 14:19: Bedtime, [place] graff [Tessalon 00 prn cough, Perles] # 15 cap, 0 Refill(s), Pharmacy: [facility] 546 { No See Memoria (Azithromyc 2-16 Instructio l in 250 MG 14:19: ns, Take 2 [facility] Oral Tablet 00 tablets by [Zithromax] mouth the ) } Pack first day [Z-PAKS] then 1 tablet by mouth days 2-5., X 5 day, # 6 tab, 0 Refill(s), Pharmacy: [place] [id number] benzonatate Yes 100 mg = 1 Memoria 100 MG Oral 2-16 cap, PO, l Capsule 14:19: Bedtime, [place] graff [Tessalon 00 prn cough, Perles] # 15 cap, 0 Refill(s), Pharmacy: [facility] 546 { No See Memoria (Azithromyc 2-16 Instructio l in 250 MG 14:19: ns, Take 2 [facility] Oral Tablet 00 tablets by [Zithromax] mouth the ) } Pack first day [Z-PAKS] then 1 tablet by mouth days 2-5., X 5 day, # 6 tab, 0 Refill(s), Pharmacy: [place] [address] benzonatate Yes 100 mg = 1 Memoria 100 MG Oral 2-16 cap, PO, l Capsule 14:19: Bedtime, [place] n [Tessalon 00 prn cough, Perles] # 15 cap, 0 Refill(s), Pharmacy: [facility] 546 { No See Memoria (Azithromyc 2-16 Instructio l in 250 MG 14:19: ns, Take 2 [facility] Oral Tablet 00 tablets by [Zithromax] mouth the ) } Pack first day [Z-PAKS] then 1 tablet by mouth days 2-5., X 5 day, # 6 tab, 0 Refill(s), Pharmacy: [place] [id number] benzonatate Yes 100 mg = 1 Memoria 100 MG Oral 2-16 cap, PO, l Capsule 14:19: Bedtime, [place] n [Tessalon 00 prn cough, Perles] # 15 cap, 0 Refill(s), Pharmacy: [facility] 546 { No See Memoria (Azithromyc 2-16 Instructio l in 250 MG 14:19: ns, Take 2 [place] [facility] Oral Tablet 00 tablets by [Zithromax] mouth the ) } Pack first day [Z-PAKS] then 1 tablet by mouth days 2-5., X 5 day, # 6 tab, 0 Refill(s), Pharmacy: [facility] 546 benzonatate Yes 100 mg = 1 Memoria 100 MG Oral 2-16 cap, PO, l Capsule 14:19: Bedtime, [place] n [Tessalon 00 prn cough, Perles] # 15 cap, 0 Refill(s), Pharmacy: [facility] 546 { No See Memoria (Azithromyc 2-16 Instructio l in 250 MG 14:19: ns, Take 2 [facility] Oral Tablet 00 tablets by [Zithromax] mouth the ) } Pack first day [Z-PAKS] then 1 tablet by mouth days 2-5., X 5 day, # 6 tab, 0 Refill(s), Pharmacy: [facility] 546 simvastatin Yes 40 mg = 1 M emoria 40 mg oral 2-16 tab, PO, l tablet 14:10: Bedtime, # [place] nn 00 90 tab, 1 Refill(s) Aspirin 81 2018 Yes 81 mg = 1 Me moria MG Enteric 2-16 tab, PO, l Coated 14:10: Daily, # [place] Tablet 00 90 tab, 3 Refill(s) canaglifloz 2018- Yes 100 mg = 1 Memoria in 100 MG 2-16 tab, PO, l Oral Tablet 14:10: Before [facility] storm [Invokana] 00 Breakfast, # 30 tab, 0 Refill(s) 0.5 ML 2018- Yes SUB-Q, 0 Memoria dulaglutide 2-16 Refill(s) l 3 MG/ML 14:10: [place] Prefilled 00 Syringe [Trulicity] azilsartan Yes 1 tab, PO, M emoria medoxomil 2-16 Daily, # l 40 MG / 14:10: 30 tab, 3 [place] nn Chlorthalid 00 Refill(s) one 12.5 MG Oral Tablet [Edarbyclor 40/12.5] simvastatin Yes 40 mg = 1 M emoria 40 mg oral 2-16 tab, PO, l tablet 14:10: Bedtime, # [place] nn 00 90 tab, 1 Refill(s) Aspirin 81 0 Yes 81 mg = 1 Me moria MG Enteric 2-16 tab, PO, l Coated 14:10: Daily, # [place] Tablet 00 90 tab, 3 Refill(s) canaglifloz 2018- Yes 100 mg = 1 Memoria in 100 MG 2-16 tab, PO, l Oral Tablet 14:10: Before [facility] storm [Invokana] 00 Breakfast, # 30 tab, 0 Refill(s) 0.5 ML 2018-0 Yes SUB-Q, 0 Memoria dulaglutide 2-16 Refill(s) l 3 MG/ML 14:10: [place] Prefilled 00 Syringe [Trulicity] azilsartan 20180 Yes 1 tab, PO, M emoria medoxomil 2-16 Daily, # l 40 MG / 14:10: 30 tab, 3 [place] nn Chlorthalid 00 Refill(s) one 12.5 MG Oral Tablet [Edarbyclor 40/12.5] simvastatin 2018 Yes 40 mg = 1 M emoria 40 mg oral 2-16 tab, PO, l tablet 14:10: Bedtime, # [place] nn 00 90 tab, 1 Refill(s) Aspirin 81 Yes 81 mg = 1 Me moria MG Enteric 2-16 tab, PO, l Coated 14:10: Daily, # [place] Tablet 00 90 tab, 3 Refill(s) canaglifloz Yes 100 mg = 1 Memoria in 100 MG 2-16 tab, PO, l Oral Tablet 14:10: Before [facility] storm [Invokana] 00 Breakfast, # 30 tab, 0 Refill(s) 0.5 ML 2017-0 Yes SUB-Q, 0 Memoria dulaglutide 2-16 Refill(s) l 3 MG/ML 14:10: [place] Prefilled 00 Syringe [Trulicity] azilsartan 0 Yes 1 tab, PO, M emoria medoxomil 2-16 Daily, # l 40 MG / 14:10: 30 tab, 3 [place] nn Chlorthalid 00 Refill(s) one 12.5 MG Oral Tablet [Edarbyclor 40/12.5] simvastatin Yes 40 mg = 1 M emoria 40 mg oral 2-16 tab, PO, l tablet 14:10: Bedtime, # [place] nn 00 90 tab, 1 Refill(s) Aspirin 81 Yes 81 mg = 1 Me moria MG Enteric 2-16 tab, PO, l Coated 14:10: Daily, # [place] Tablet 00 90 tab, 3 Refill(s) canaglifloz 20180 Yes 100 mg = 1 Memoria in 100 MG 2-16 tab, PO, l Oral Tablet 14:10: Before [place] storm [Invokana] 00 Breakfast, # 30 tab, 0 Refill(s) 0.5 ML 2018-0 Yes SUB-Q, 0 [facility]oria dulaglutide 2-16 Refill(s) l 3 MG/ML 14:10: [place] Prefilled 00 Syringe [Trulicity] azilsartan 2018-0 Yes 1 tab, PO, M emoria medoxomil 2-16 Daily, # l 40 MG / 14:10: 30 tab, 3 [place] nn Chlorthalid 00 Refill(s) one 12.5 MG Oral Tablet [Edarbyclor 40/12.5] simvastatin 2018 Yes 40 mg = 1 M emoria 40 mg oral 2-16 tab, PO, l tablet 14:10: Bedtime, # [place] nn 00 90 tab, 1 Refill(s) Aspirin 81 Yes 81 mg = 1 Me moria MG Enteric 2-16 tab, PO, l Coated 14:10: Daily, # [place] Tablet 00 90 tab, 3 Refill(s) canaglifloz Yes 100 mg = 1 Memoria in 100 MG 2-16 tab, PO, l Oral Tablet 14:10: Before [facility] storm [Invokana] 00 Breakfast, # 30 tab, 0 Refill(s) 0.5 ML 2017-0 Yes SUB-Q, 0 [facility] dulaglutide 2-16 Refill(s) l 3 MG/ML 14:10: [place] Prefilled 00 Syringe [Trulicity] azilsartan 0 Yes 1 tab, PO, M emoria medoxomil 2-16 Daily, # l 40 MG / 14:10: 30 tab, 3 [place] nn Chlorthalid 00 Refill(s) one 12.5 MG Oral Tablet [Edarbyclor 40/12.5] simvastatin Yes 40 mg = 1 M emoria 40 mg oral 2-16 tab, PO, l tablet 14:10: Bedtime, # [place] nn 00 90 tab, 1 Refill(s) Aspirin 81 2018 Yes 81 mg = 1 Me moria MG Enteric 2-16 tab, PO, l Coated 14:10: Daily, # [place] Tablet 00 90 tab, 3 Refill(s) canaglifloz 2018-0 Yes 100 mg = 1 Memoria in 100 MG 2-16 tab, PO, l Oral Tablet 14:10: Before [facility] storm [Invokana] 00 Breakfast, # 30 tab, 0 Refill(s) 0.5 ML 2017-0 Yes SUB-Q, 0 Memoria dulaglutide 2-16 Refill(s) l 3 MG/ML 14:10: [place] Prefilled 00 Syringe [Trulicity] azilsartan 2018- Yes 1 tab, PO, M emoria medoxomil 2-16 Daily, # l 40 MG / 14:10: 30 tab, 3 [place] nn Chlorthalid 00 Refill(s) one 12.5 MG Oral Tablet [Edarbyclor 40/12.5] simvastatin Yes 40 mg = 1 M emoria 40 mg oral 2-16 tab, PO, l tablet 14:10: Bedtime, # [place] nn 00 90 tab, 1 Refill(s) Aspirin 81 Yes 81 mg = 1 Me moria MG Enteric 2-16 tab, PO, l Coated 14:10: Daily, # [place] Tablet 00 90 tab, 3 Refill(s) canaglifloz Yes 100 mg = 1 Memoria in 100 MG 2-16 tab, PO, l Oral Tablet 14:10: Before [facility] storm [Invokana] 00 Breakfast, # 30 tab, 0 Refill(s) 0.5 ML Yes SUB-Q, 0 Memoria dulaglutide 2-16 Refill(s) l 3 MG/ML 14:10: [place] Prefilled 00 Syringe [Trulicity] azilsartan Yes 1 tab, PO, M emoria medoxomil 2-16 Daily, # l 40 MG / 14:10: 30 tab, 3 [place] nn Chlorthalid 00 Refill(s) one 12.5 MG Oral Tablet [Edarbyclor 40/12.5] simvastatin Yes 40 mg = 1 M emoria 40 mg oral 2-16 tab, PO, l tablet 14:10: Bedtime, # Tahira nn 00 90 tab, 1 Refill(s) Aspirin 81 Yes 81 mg = 1 Me moria MG Enteric 2-16 tab, PO, l Coated 14:10: Daily, # Steven Tablet 00 90 tab, 3 Refill(s) canaglifloz Yes 100 mg = 1 Memoria in 100 MG 2-16 tab, PO, l Oral Tablet 14:10: Before Herm storm [Invokana] 00 Breakfast, # 30 tab, 0 Refill(s) 0.5 ML Yes SUB-Q, 0 Memoria dulaglutide 2-16 Refill(s) l 3 MG/ML 14:10: [place] Prefilled 00 Syringe [Trulicity] azilsartan Yes 1 tab, PO, M emoria medoxomil 2-16 Daily, # l 40 MG / 14:10: 30 tab, 3 Tahira nn Chlorthalid 00 Refill(s) one 12.5 MG Oral Tablet [Edarbyclor 40/12.5] Hydrocortis No 1 appl, Mem oria one 25 1-10 IA, BID, X l MG/ML 14:56: 14 day, # [place] Topical 00 30 gm, 0 Cream Refill(s), [Anusol HC] Pharmacy: [place] [facility] [id number] Hydrocortis No 1 appl, Mem oria one 25 1-10 IA, BID, X l MG/ML 14:56: 14 day, # [place] Topical 00 30 gm, 0 Cream Refill(s), [Anusol HC] Pharmacy: [place] [id number] Hydrocortis No 1 appl, Mem oria one 25 1-10 [place], BID, X l MG/ML 14:56: 14 day, # [place] Topical 00 30 gm, 0 Cream Refill(s), [Anusol HC] Pharmacy: [place] [id number] Hydrocortis No 1 appl, Mem oria one 25 1-10 [place], BID, X l MG/ML 14:56: 14 day, # [place] Topical 00 30 gm, 0 Cream Refill(s), [Anusol HC] Pharmacy: [place] [facility] [id number] Hydrocortis No 1 appl, Mem oria one 25 1-10 IA, BID, X l MG/ML 14:56: 14 day, # [place] Topical 00 30 gm, 0 Cream Refill(s), [Anusol HC] Pharmacy: [place] [id number] Hydrocortis No 1 appl, Mem oria one 25 1-10 IA, BID, X l MG/ML 14:56: 14 day, # [place] Topical 00 30 gm, 0 Cream Refill(s), [Anusol HC] Pharmacy: [place] [address] Hydrocortis No 1 appl, Mem oria one 25 1-10 IA, BID, X l MG/ML 14:56: 14 day, # [place] Topical 00 30 gm, 0 Cream Refill(s), [Anusol HC] Pharmacy: [facility] [id number] Hydrocortis 2017-0 No 1 appl, Mem oria one 25 1-10 IA, BID, X l MG/ML 14:56: 14 day, # [place] Topical 00 30 gm, 0 Cream Refill(s), [Anusol HC] Pharmacy: [facility] [id number] Aspirin 2017-0 No 0 Memoria 1-10 Refill(s) l 14:33: Invokana 0 No PO, Daily, Mem oria 1-10 0 l 14:33: Refill(s) Simvastatin 2017-0 No PO, Memori a 1-10 Bedtime, 0 l 14:33: Refill(s) Aspirin 0 No 0 Memoria 1-10 Refill(s) l 14:33: Invokana 0 No PO, Daily, Mem oria 1-10 0 l 14:33: Refill(s) Simvastatin 2017-0 No PO, Memori a 1-10 Bedtime, 0 l 14:33: Refill(s) Aspirin 0 No 0 Memoria 1-10 Refill(s) l 14:33: Invokana 0 No PO, Daily, Mem oria 1-10 0 l 14:33: Refill(s) Simvastatin 2017-0 No PO, Memori a 1-10 Bedtime, 0 l 14:33: Refill(s) Aspirin 2017-0 No 0 Memoria 1-10 Refill(s) l 14:33: Invokana 2017-0 No PO, Daily, Mem oria 1-10 0 l 14:33: Refill(s) Simvastatin 2017-0 No PO, Memori a 1-10 Bedtime, 0 l 14:33: Refill(s) Aspirin 2017-0 No 0 Memoria 1-10 Refill(s) l 14:33: Invokana 2017-0 No PO, Daily, Mem oria 1-10 0 l 14:33: Refill(s) Simvastatin 0 No PO, Memori a 1-10 Bedtime, 0 l 14:33: Refill(s) Aspirin 0 No 0 Memoria 1-10 Refill(s) l 14:33: [place] 00 Invokana 0 No PO, Daily, Mem oria 1-10 0 l 14:33: Refill(s) Simvastatin 0 No PO, Memori a 1-10 Bedtime, 0 l 14:33: Refill(s) Aspirin 0 No 0 Memoria 1-10 Refill(s) l 14:33: [place] 00 Invokana 0 No PO, Daily, Mem oria 1-10 0 l 14:33: Refill(s) Simvastatin 0 No PO, Memori a 1-10 Bedtime, 0 l 14:33: Refill(s) Aspirin 0 No 0 Memoria 1-10 Refill(s) l 14:33: Invokana 0 No PO, Daily, Mem oria 1-10 0 l 14:33: Refill(s) Simvastatin 0 No PO, Memori a 1-10 Bedtime, 0 l 14:33: Refill(s) 0.5 ML 0 No SUB-Q, 0 Memoria dulaglutide 1-10 Refill(s) l 3 MG/ML 13:55: [place] Prefilled 00 Syringe [Trulicity] 0.5 ML No SUB-Q, 0 Memoria dulaglutide 1-10 Refill(s) l 3 MG/ML 13:55: [place] Prefilled 00 Syringe [Trulicity] 0.5 ML 0 No SUB-Q, 0 Memoria dulaglutide 1-10 Refill(s) l 3 MG/ML 13:55: [place] Prefilled 00 Syringe [Trulicity] 0.5 ML 0 No SUB-Q, 0 Memoria dulaglutide 1-10 Refill(s) l 3 MG/ML 13:55: [place] Prefilled 00 Syringe [Trulicity] 0.5 ML 0 No SUB-Q, 0 Memoria dulaglutide 1-10 Refill(s) l 3 MG/ML 13:55: [place] Prefilled 00 Syringe [Trulicity] 0.5 ML No SUB-Q, 0 Memoria dulaglutide 1-10 Refill(s) l 3 MG/ML 13:55: [place] Prefilled 00 Syringe [Trulicity] 0.5 ML No SUB-Q, 0 Memoria dulaglutide 1-10 Refill(s) l 3 MG/ML 13:55: [place] Prefilled 00 Syringe [Trulicity] 0.5 ML No SUB-Q, 0 Memoria dulaglutide 1-10 Refill(s) l 3 MG/ML 13:55: [place] Prefilled 00 Syringe [Trulicity] Vital Signs Vital Name Observation Time Observation Value Comments Source Systolic blood 2023-06-09 15:10:00 148 mm[Hg] [facility] Diastolic blood 2023-06-09 15:10:00 95 mm[Hg] [facility] Heart rate 2023-06-09 15:10:00 96 /min Universi ty [facility] Body height 2023-06-09 15:10:00 162.6 cm Universi ty [facility] Body weight 2023-06-09 15:10:00 92.398 kg Universi ty [facility] BMI 2023-06-09 15:10:00 34.97 kg/m2 [facility] Systolic blood 2023-05-26 15:47:00 146 mm[Hg] [facility] Diastolic blood 2023-05-26 15:47:00 92 mm[Hg] [facility] Heart rate 2023-05-26 15:47:00 80 /min Universi ty [facility] Body height 2023-05-26 15:47:00 162.6 cm Universi ty [facility] Body weight 2023-05-26 15:47:00 92.08 kg Universi ty [facility] BMI 2023-05-26 15:47:00 34.84 kg/m2 Universi ty [facility] Systolic blood 2023-05-23 17:00:00 144 mm[Hg] Univer sity of pressure [facility] Diastolic blood 2023-05-23 17:00:00 76 mm[Hg] Unive rsity of pressure [facility] Heart rate 2023-05-23 17:00:00 76 /min [facility] Respiratory rate 2023-05-23 17:00:00 15 /min Univ ers[facility] Oxygen saturation 2023-05-23 17:00:00 100 /min Uni versity of in Arterial blood [facility] P[facility] Body temperature 2023-05-23 15:20:00 35.72 Hilda [facility] Body weight 2023-05-17 12:00:00 92.08 kg [facility] BMI 2023-05-17 12:00:00 34.84 kg/m2 [facility] Respiratory rate 2023-05-23 14:57:00 36 /min Univ [facility] Systolic blood 2023-05-23 11:49:00 166 mm[Hg] Univer sity of pressure [facility] Diastolic blood 2023-05-23 11:49:00 75 mm[Hg] Unive rsity of pressure [facility] Heart rate 2023-05-23 11:49:00 84 /min [facility] Body temperature 2023-05-23 11:49:00 36.44 Hilda [facility] Respiratory rate 2023-05-23 11:49:00 15 /min Univ [facility] Oxygen saturation 2023-05-23 11:49:00 100 /min Uni versity of in Arterial blood [facility] Body weight 2023-05-17 12:00:00 92.08 kg [facility] BMI 2023-05-17 12:00:00 34.84 kg/m2 [facility] Body height 2023-05-06 14:47:00 162.6 cm [facility] Body weight 2023-05-06 14:47:00 92.262 kg [facility] BMI 2023-05-06 14:47:00 34.91 kg/m2 [facility] Systolic blood 2023-03-15 19:06:00 132 mm[Hg] Univer sity of pressure [facility] Diastolic blood 2023-03-15 19:06:00 79 mm[Hg] Unive rsity of pressure [facility] Heart rate 2023-03-15 19:06:00 91 /min Universi ty of [facility] Respiratory rate 2023-03-15 19:06:00 17 /min Univ ersity of [facility] Body height 2023-03-15 19:06:00 162.6 cm Universi ty of [facility] Body weight 2023-03-15 19:06:00 92.761 kg Universi ty [facility] BMI 2023-03-15 19:06:00 35.10 kg/m2 Universi ty [facility] Oxygen saturation 2023-03-15 19:06:00 100 /min Uni versity of in Arterial blood [facility] by Pulse oximetry [place] Systolic blood 2023-01-21 13:54:00 130 mm[Hg] [facility] Diastolic blood 2023-01-21 13:54:00 81 mm[Hg] [facility] Heart rate 2023-01-21 13:54:00 78 /min Universi ty of [facility] Body height 2023-01-21 13:54:00 162.6 cm Universi ty [facility] Body weight 2023-01-21 13:54:00 93.441 kg lost weight Universi ty [facility] BMI 2023-01-21 13:54:00 35.36 kg/m2 Universi ty [facility] Oxygen saturation 2023-01-21 13:54:00 99 /min Uni versity of in Arterial blood [facility] by Pulse oximetry Branch Weight 2018-11-21 13:04:00 Danielle Harris BMI Calculated 2018-11-21 13:04:00 Alexis Flynn Height 2018-11-21 13:04:00 152.4 cm [facility] Steven Temperature Oral 2018-11-21 13:04:00 98.1 F Irwin Harris (F) Heart Rate 2018-11-21 13:04:00 Danielle Harris Systolic (mm Hg) 2018-11-21 13:04:00 Irwin Harris Diastolic (mm Hg) 2018-11-21 13:04:00 Madeleine bundyal Steven Weight 2018-08-23 16:10:00 [facility] [place] BMI Calculated 2018-08-23 16:10:00 Memori al [place] Height 2018-08-23 16:10:00 152.4 cm [facility] [place] Temperature Oral 2018-08-23 16:10:00 98.5 F Irwin rial [place] (F) Heart Rate 2018-08-23 16:10:00 [facility] [place] Systolic (mm Hg) 2018-08-23 16:10:00 Irwin rial [place] Diastolic (mm Hg) 2018-08-23 16:10:00 Mem orial [place] Weight 2017-10-21 14:07:00 [facility] [place] Systolic (mm Hg) 2017-10-21 14:07:00 Irwin rial [place] Diastolic (mm Hg) 2017-10-21 14:07:00 Mem orial [place] Heart Rate 2017-10-21 14:07:00 [facility] [place] Respitory Rate 2017-10-21 14:07:00 Memori al [place] Height 2017-10-21 14:07:00 154.94 cm [facility] [place] BMI Calculated 2017-10-21 14:07:00 Memori al [place] Temperature Oral 2017-10-21 14:07:00 98.7 F Irwin rial [place] (F) BMI Calculated 2017-09-14 13:49:00 Memori al [place] Heart Rate 2017-09-14 13:49:00 [facility] [place] Temperature Oral 2017-09-14 13:49:00 98.4 F Irwin rial [place] (F) Systolic (mm Hg) 2017-09-14 13:49:00 Irwin rial [place] Diastolic (mm Hg) 2017-09-14 13:49:00 Mem orial [place] Weight 2017-09-14 13:49:00 [facility] [place] Height 2017-09-14 13:49:00 154.94 cm [facility] [place] Procedures Procedure Date / Time Performing Clinician Source Performed XR SHOULDER <2 VW LEFT 2023-06-09 15:17:00 Jaya Perea [facility] ABORH CONFIRMATION (LAB 2023-05-23 13:05:00 Maureen Barber Un [facility] ONLY) Medical Branch ABORH CONFIRMATION (LAB 2023-05-23 13:05:00 Maureen Barber Un [facility] ONLY) Medical Branch NERVE BLOCK 2023-05-23 12:42:44 Lori Lopez [facility] ARTHROPLASTY REVERSE 2023-05-23 12:29:00 Maureen Barber [facility] [place] BASIC METABOLIC PANEL 2023-05-23 12:04:00 Jaya Perea [facility] (NA, K, CL, CO2, GLUCOSE, Medica l Branch BUN, CREATININE, CA) POCT GLUCOSE (AUTOMATED) 2023-05-23 12:04:00 Maureen Barber [facility] BASIC METABOLIC PANEL 2023-05-23 12:04:00 Brit Jaya [facility] (NA, K, CL, CO2, GLUCOSE, Medica l Branch BUN, CREATININE, CA) POCT GLUCOSE (AUTOMATED) 2023-05-23 12:04:00 Maureen Barber [facility] HB ABO GROUPING 2023-05-23 12:01:00 Brit [facility] HB ABO GROUPING 2023-05-23 12:01:00 Brit [facility] CBC WITH DIFF 2023-05-23 12:[facility]FF 2023-05-23 12:00:00 Brit [facility] DAY SURGERY - ADC 2023-05-23 05:01:00 Doctor Migue, [facility] Name [facility] XR CHEST 2 VW 2023-05-20 16:36:00 Brit [facility] INSURANCE CORRESPONDENCE 2023-05-13 05:01:00 Doctor Migue [facility] [place] EXTERNAL PROVIDER RECORDS 2023-05-11 05:01:00 Doctor Migue [facility] Name [facility] [place] DSU PRE-OP 2023-05-06 05:01:00 Doctor Migue [facility] Name [facility] [place] NED EXTREMITY STRESS - BY 2023-04-01 19:30:27 Smita Matta [facility] VASCULAR LAB Medical Branch TRANSTHORACIC ECHO (TTE) 2023-04-01 18:25:00 Smita Matta Uni [facility] HB ECG ROUTINE & RHYTHM 2023-03-15 19:10:14 [facility] [place] Encounters Start End Encounter Admission Attending Care Care Encounter Source Date/Time Date/Time Type Type Clinicians Facility Department ID 2023-06-10 2023-06-10 Telephone [facility] [id number] Univers 00:00:00 00:00:00 Jaya S HEALTH 350.1.13.10 it y of [place] 4.2.7.2.686 [place] as GIDEON?BLEA [phone] Ct jenifer FAGAN [address] [place] [address] [facility] 2023-06-09 2023-06-09 [facility] [id number] Univers 10:10:02 23:59:00 Encounter Jaya S HEALTH 350.1.13.10 ity of [place] 4.2.7.2.686 [place] as GIDEON?BLEA [id number] Ct jenifer FAGAN 8[address] [facility] OFFICE [facility] 2023-06-09 2023-06-09 [facility] [id number] Univers 10:30:00 11:17:19 JAYA ity [facility] 2023-06-09 2023-06-09 Office [facility] [id number] Univers 10:30:00 10:45:00 Visit Jaay S HEALTH 350.1.13.10 it y of [place] 4.2.7.2.686 [place] as GIDEON?BLEA [phone] Ct jenifer FAGAN [address] [place] [address] [facility] 2023-06-01 2023-06-01 [facility]phone [facility] [id number] Univers 00:00:00 00:00:00 Maureen L HEALTH 350.1.13.10 it y of [place] 4.2.7.2.686 [place] as GIDEON?BLEA [id number] Ct jenifer FAGAN 198 [facility] OFFICE BUILDING 2023-05-31 2023-05-31 Telephone [facility] [id number] Univers 00:00:00 00:00:00 Jaya S HEALTH 350.1.13.10 it y of [place] 4.2.7.2.686 [place] as GIDEON?BLEA [id number] Ct jenifer FAGNA 198 [facility] OFFICE [facility] 2023-05-26 2023-05-26 Outpatient R BRIT [facility] [id number] Univers 10:45:00 11:07:17 JAYA ity [facility] 2023-05-26 2023-05-26 Office [facility] 1.2.840.114 [id number] Univers 10:45:00 11:07:17 Visit [facility] 350.1.13.10 it y of [place] 4.2.7.2.686 [place] as GIDEON?BLEA [id number] Ct jenifer ALECIA [address] [place] [address] 2023-05-23 2023-05-23 Outpatient R [facility] [id number] Univers 06:35:00 12:15:00 [facility] 2023-05-23 2023-05-23 [facility] 1.2.840.114 [id number] Univers 06:35:00 12:15:00 Encounter Maureen GAO 350.1.13.10 [place] [id number] [facility] [address] [place] 2023-05-23 2023-05-23 Anesthesia Tolu Case [facility] 1.2.840.11 [id number] Univers 07:44:00 10:19:00 Event Bryant Ibarra 350.1.13. 10 [place]ICAL [id number] [facility] ical CENTER [address] [place] 2023-05-23 2023-05-23 Surgery [facility] [id number] Univers 07:20:00 10:08:00 Maureen GAO 350.1.13.10 i [place] [id number] [facility] [place] [address] [place] 2023-05-23 2023-05-23 Orders Doctor JORDAN 1.2.840.114 [id number] Univers 00:00:00 00:00:00 Only Unassigned, YESY 350.1.13.10 ity of [place] [facility] 4.2.7.2.686 [place] [id number] [facility] [address] [place] 2023-05-20 2023-05-20 [facility] 1.2.840.114 [id number] Univers 11:16:51 23:59:00 Encounter Jaya GAO 350.1.13.10 ity of [facility] 4.2.7.2.686 [place] [facility] [id number] [facility] [address] 2023-05-20 2023-05-[address] [facility] [id number] Univers 11:16:09 11:15:00 JAYA ity of [facility] 2023-05-20 2023-05-20 [facility] 1.2.840.114 [id number] Univers 11:15:00 11:15:00 Encounter Jaya Martines MURRAY 350.1.13.10 ity of [facility] 4.2.7.2.686 [facility] [id number] [facility] [address] [place] 2023-05-17 2023-05-17 Telephone [facility] 1.2.840.114 [id number] Univers 00:00:00 00:00:00 [facility] 350.1.13.10 it [facility] 4.2.7.2.686 [place] as GIDEON?BLEA [id number] Ct jenifer [address] MEDICAL OFFICE BUILDING 2023-05-13 2023-05-13 Orders Doctor JULIAN 1.2.840.114 [id number] Univers 00:00:00 00:00:00 Only Unassigned, YESY 350.1.13.10 ity of [place] [facility] 4.2.7.2.686 [place] [id number] [facility] [address] [place] 2023-05-11 2023-05-11 Orders Doctor JULIAN 1.2.840.114 [id number] Univers 00:00:00 00:00:00 Only Unassigned, YESY 350.1.13.10 ity of [place] [facility] 4.2.7.2.686 [place] as [id number] [address] 2023-05-11 2023-05-11 Prep For Brit [facility] 1.2.840.114 [id number] Univers 00:00:00 00:00:00 Surgery Jaya S HEALTH 350.1.13.10 it y [facility] 4.2.7.2.686 [place] GIDEON?BLEA [id number] Ct jenifer DIXON[address] [facility] 2023-05-11 2023-05-11 Telephone Celina Jeffery [facility] 1.2.840.114 [id number] Univers 00:00:00 00:00:00 L [place] 350.1.13.10 i ty [place] [id number] [address] 2023-05-06 2023-05-06 Outpatient R BRIT [facility] [id number] Univers 10:00:00 10:23:18 JAYA ity of [facility] 2023-05-06 2023-05-06 Office [facility] 1.2.840.114 [id number] Univers 10:00:00 10:23:18 Visit [facility] 350.1.13.10 it y of [place] 4.2.7.2.686 [place] as GIDEON?BLEA [id number] Ct jenifer [address] [facility] 2023-05-06 2023-05-06 Orders Doctor JULIAN 1.2.840.114 [id number] Univers 00:00:00 00:00:00 Only Unassigned, YESY 350.1.13.10 ity of [place] [facility] 4.2.7.2.686 [place] as [id number] [address] 2023-05-03 2023-05-03 Telephone [facility] [id number] Univers 00:00:00 00:00:00 Jaya S HEALTH 350.1.13.10 it y of [place] 4.2.7.2.686 [place] as GIDEON?BLEA [id number] Ct rudi[address] [facility] 2023-04-05 2023-04-05 Telephone [facility] [id number] Univers 00:00:00 00:00:00 Smita GAO 350.1.13.10 [place] [id number] [facility] 059 [facility] 2023-04-01 2023-04-01 [facility] 1.2.840.114 [id number] Univers 13:56:12 23:59:00 Encounter Smita GAO 350.1.13.10 it[place] [id number] [address] 2023-04-01 2023-04-01 [facility] 1.2.840.114 [id number] Univers 12:39:46 13:55:00 Encounter Smita GAO 350.1.13.10 it[place] [id number] [address] 2023-04-01 2023-04-01 [facility] [id number] Univers 12:39:46 13:55:00 SMITA panda o [facility] 2023-03-15 2023-03-15 Outpatient [facility] [id number] Univers 14:20:00 14:27:25 SMITA mccrackeny o [facility] 2023-03-15 2023-03-15 Office [facility] 1.2.840.114 [id number] Univers 14:20:00 14:27:25 Visit Smita GAO 350.1.13.10 it[place] [id number] [address] 2023-01-21 2023-01-21 [facility] [id number] Univers 09:20:00 23:59:00 JAYA ittorrie [facility] 2023-01-21 2023-01-21 Office [facility] 1.2.840.114 [id number] Univers 09:00:00 09:30:00 Visit [facility] 350.1.13.10 it y [facility] 4.2.7.2.686 [place] GIDEON?BLEA [id number] [facility] [place] [address] [facility] 2018-11-27 2018-12-27 OP Therapy nullFlavo SMR [id number] Memoria 12:00:00 04:59:00 Patients pacheco dolan [place] 2018-11-27 2018-12-27 OP Therapy nullFlavo SMR [id number] Memoria 12:00:00 04:59:00 Patients pacheco dolan [place] 2018-11-27 2018-12-26 Outpatient Aglieco, 2.16.840. 2.16.840.1. [id number] 07:00:00 23:59:00 Jackson Estevez [id number] 3.615.70 5.70 2018-10-25 2018-11-24 OP Therapy nullFlavo SMR [id number] Memoria 22:00:00 04:59:00 Patients pacheco dolan [place] 2018-10-25 2018-11-24 OP Therapy nullFlavo SMR [id number] Memoria 22:00:00 04:59:00 Patients pacheco dolan [place] 2018-10-25 2018-11-23 Outpatient Aglieco, 2.16.840. 2.16.840.1. [id number] 16:00:00 23:59:00 Jackson Estevez [id number] [id number] 5.70 2018-11-21 2018-11-22 Outpatient nullFlavo [facility] 5 [id number] Memoria 13:00:00 04:59:59 r Medicine 03 l Rian Scott n 2018-11-21 2018-11-22 Outpatient nullFlavo [facility] 5 [id number] Memoria 13:00:00 04:59:59 r Medicine 03 l Rian Soctt n 2018-11-21 2018-11-21 Outpatient Jeremy, MG MG [id number] 08:00:00 23:59:59 Theresa N 2018-11-21 2018-11-21 Outpatient MHIE MHIE [id number] Memoria 08:00:00 08:00:00 03 magdaleno [place] 2018-09-25 2018-10-25 OP Therapy nullFlavo SMR [id number] Memoria 20:30:00 05:59:00 Patients pacheco Cabrera 00 magdaleno [place] 2018-09-25 2018-10-25 OP Therapy nullFlavo SMR [id number] Memoria 20:30:00 05:59:00 Patients r Rick 00 l [place] 2018-09-25 2018-10-24 Outpatient Miguel Ángel, 2.16.840. 2.16.840.1. [id number] 14:30:00 23:59:00 Jackson Estevez [id number] 3.615.70 5.70 2018-08-23 2018-08-24 Outpatient nullFlavo [facility] Family 5 [id number] Memoria 16:15:00 05:59:59 r Medicine 02 magdaleno graff 2018-08-23 2018-08-24 Outpatient nullFlavo [facility] 5 [id number] Memoria 16:15:00 05:59:59 r Medicine 02 magdaleno GarciaModi Tyler graff 2018-08-23 2018-08-23 Outpatient Vipin [facility] [id number] 10:15:00 23:59:59 Yudi 2018-08-23 2018-08-23 Outpatient RENATEMICHELLE HEMA [id number] Memoria 10:15:00 10:15:00 02 magdaleno Harris 2017-10-21 2017-10-22 Outpatient nullFlavo [facility] 5 [id number] Memoria 14:00:00 05:59:59 r Medicine 01 magdaleno GarciaModiemily Scott dajuan 2017-10-21 2017-10-22 Outpatient nullFlavo [facility] 5 [id number] Memoria 14:00:00 05:59:59 r Medicine 01 magdaleno graff 2017-10-21 2017-10-21 Outpatient Vipin [facility] [id number] 08:00:00 23:59:59 Yudi 2017-10-21 2017-10-21 Outpatient MHIE RENATEIE [id number] Memoria 08:00:00 08:00:00 01 magdaleno Harris 2017-09-14 2017-09-15 Outpatient nullFlavo [facility] [id number] Memoria 14:30:00 05:59:59 r Internal 00 l Medicine Steven Modi 2017-09-14 2017-09-15 Outpatient nullFlavo [facility] [id number] Memoria 14:30:00 05:59:59 r Internal 00 l Kinjal Modi 2017-09-14 2017-09-14 Outpatient Yadi, [facility] [id number] 08:30:00 23:59:59 Heather 00 2017-09-14 2017-09-14 Outpatient HEMA [facility] [id number] Memoria 08:30:00 08:30:00 00 l [place] Results Test Description Test Time Test Comments Results Result Comments Source BASIC METABOLIC PANEL (NA, K, CL, CO2, GLUCOSE, BUN, 2023-05 13:10:20 CREATININE, [place]) Test Item Value Reference Range Interpretation Comme nts NA (test code = 4309960294) 141 mmol/L 135-145 K (test code = 2797190739) 3.7 mmol/L 3.5-5.0 CL (test code = 1827092871) 110 mmol/L 98-108 H CO2 TOTAL (test code = 2634461212) 26 mmol/L 23-31 AGAP (test code = 6091690592) 5 2-16 BUN (test code = 1964364599) 22 mg/dL 7-23 GLUCOSE (test code = 6885808582) 107 mg/dL 70-110 CREATININE (test code = 1.11 mg/dL 0.50-1.04 H [id number]) CALCIUM (test code = 9478731774) 9.1 mg/dL 8.6-10.6 eGFR (test code = 1925766283) 48.0 mL/min/1.73m2 JUAN FRANCISCO (test code = JUAN FRANCISCO) Association of Glomerular Filtration Rate (GFR) and Staging of Kidney Disease* + +-------- + ------+| GFR (mL/min/1.73 m2) ?| With Kidney Damage ?| ?Without Kidney Damage+ +-- + +| ?>90 ?| ?Stage one ?| ? Normal ?+ +------- + -------+| ?60-89 ?| ?Stage two ?| ? Decreased GFR ? + +-------- + ------+| ?30-59 ?| ?Stage three ?| ? Stage three ? + +-------- + ------+| ?15-29 ?| ?Stage four ? | ? Stage four ?+ +------- + -------+| ?<15 (or dialysis) ? ?| ?Stage five ? | ? Stage five ?+ +------- + -------+ *Each stage assumes the associated GFR level has been in effect for at least three months. ?Stages 1 to 5, with or without kidney disease, indicate chronic kidney disease. Notes: Determination of stages one and two (with eGFR >59mL/min/1.73 m2) requires estimation of kidney damage for at least three months as defined by structural or functional abnormalities of the kidney, manifested by either:Pathological abnormalities or Markers of kidney damage (including abnormalities in the composition of the blood or urine or abnormalities in imaging tests). Lab Interpretation (test code = Abnormal 27664-3) [facility] METABOLIC PANEL (NA, K, CL, CO2, GLUCOSE, BUN, CREATININE, CA)2023-05-23 13:10:20 Test Item Value Reference Range Interpretation Comments NA (test code = 141 mmol/L 135-145 [id number]) K (test code = 3.7 mmol/L 3.5-5.0 3730729528) CL (test code = 110 mmol/L 98-108 H [id number]) CO2 TOTAL (test code = 26 mmol/L 23-31 0109798850) AGAP (test code = 5 2-16 4999657847) BUN (test code = 22 mg/dL 7-23 6299894228) GLUCOSE (test code = 107 mg/dL 70-110 1610988096) CREATININE (test code = 1.11 mg/dL 0.50-1.04 H 1762228308) CALCIUM (test code = 9.1 mg/dL 8.6-10.6 0426147713) eGFR (test code = 48.0 mL/min/1.73m2 4137887023) JUAN FRANCISCO (test code = JUAN FRANCISCO) Association of Glomerular Filtration Rate (GFR) and Staging of Kidney Disease* + --+ --+ ------+| GFR (mL/min/1.73 m2) ?| With Kidney Damage ?| ?Without Kidney Damage+ --------+ --------+ +| ?>90 ?| ?Stage one ?| ? Normal ?+ ---+ ---+ -------+| ?60-89 ?| ?Stage two ?| ? Decreased GFR ? + --+ --+ ------+| ?30-59 ?| ?Stage three ?| ? Stage three ? + --+ --+ ------+| ?15-29 ?| ?Stage four ? | ? Stage four ?+ ---+ ---+ -------+| ?<15 (or dialysis) ? ?| ?Stage five ? | ? Stage five ?+ ---+ ---+ -------+ *Each stage assumes the associated GFR level has been in effect for at least three months. ?Stages 1 to 5, with or without kidney disease, indicate chronic kidney disease. Notes: Determination of stages one and two (with eGFR >59mL/min/1.73 m2) requires estimation of kidney damage for at least three months as defined by structural or functional abnormalities of the kidney, manifested by either:Pathological abnormalities or Markers of kidney damage (including abnormalities in the composition of the blood or urine or abnormalities in imaging tests). Lab Interpretation Abnormal (test code = 44455-9) [facility] WITH [id number] 12:10:20 Test Item Value Reference Range Interpretation Comments WBC (test code = 8.14 See_Comment [Automated 2316-2) message] The sy stem which generated this result transmitted reference range : 4.30 - 11.10 10*3/?L. The reference range was not used to interpret this result as normal/abnormal . RBC (test code = 5.65 See_Comment H [Automated 953-8) message] The sy stem which generated this result transmitted reference range : 3.93 - 5.25 10*6/?L. The reference range was not used to interpret this result as normal/abnormal . HGB (test code = 13.3 g/dL 11.6-15.0 718-7) HCT (test code = 42.1 % 35.7-45.2 4544-3) MCV (test code = 74.5 fL 80.6-95.5 L 787-2) MCH (test code = 23.5 pg 25.9-32.8 L 785-6) MCHC (test code = 31.6 g/dL 31.6-35.1 786-4) RDW-SD (test code = 41.7 fL 39.0-49.9 24347-9) RDW-CV (test code = 16.0 % 12.0-15.5 H 788-0) PLT (test code = 259 See_Comment [Automated 777-3) message] The sy stem which generated this result transmitted reference range : 166 - 358 10*3/ ?L. The reference r lenard was not used to interpret this result as normal/abnormal . MPV (test code = 11.6 fL 9.5-12.9 14604-4) NRBC/100 WBC (test 0.0 See_Comment [Automat ed code = 0148675196) message] The system which generated this result transmitted reference range : 0.0 - 10.0 /100 WBCs. The refer ence range was not u sed to interpret th is result as normal/abnormal . NRBC x10^3 (test code See_Comment [Auto mated = 1490298055) message] The s ystem which generated this result transmitted reference range : 10*3/?L. The reference range was not used to interpret this result as normal/abnormal . GRAN MAT (NEUT) % 44.5 % (test code = 770-8) IMM GRAN % (test code 0.20 % = 1650571279) LYMPH % (test code = 42.1 % 736-9) MONO % (test code = 9.1 % 5905-5) EOS % (test code = 3.2 % 713-8) BASO % (test code = 0.9 % 706-2) GRAN MAT x10^3(ANC) 3.62 10*3/uL 1.88-7.09 (test code = 7151926283) IMM GRAN x10^3 (test 0.00-0.06 code = 0627239884) LYMPH x10^3 (test code 3.43 10*3/uL 1.32-3.29 H = 731-0) MONO x10^3 (test code 0.74 10*3/uL 0.33-0.92 = 742-7) EOS x10^3 (test code = 0.26 10*3/uL 0.03-0.39 711-2) BASO x10^3 (test code 0.07 10*3/uL 0.01-0.07 = 704-7) Lab Interpretation Abnormal (test code = 20033-8) [facility] WITH [id number] 12:10:20 Test Item Value Reference Range Interpretation Comments WBC (test code = 8.14 See_Comment [Automated 6690-2) message] The sy stem which generated this result transmitted reference range : 4.30 - 11.10 10*3/?L. The reference range was not used to interpret this result as normal/abnormal . RBC (test code = 5.65 See_Comment H [Automated 789-8) message] The sy stem which generated this result transmitted reference range : 3.93 - 5.25 10*6/?L. The reference range was not used to interpret this result as normal/abnormal . HGB (test code = 13.3 g/dL 11.6-15.0 718-7) HCT (test code = 42.1 % 35.7-45.2 4544-3) MCV (test code = 74.5 fL 80.6-95.5 L 787-2) MCH (test code = 23.5 pg 25.9-32.8 L 785-6) MCHC (test code = 31.6 g/dL 31.6-35.1 786-4) RDW-SD (test code = 41.7 fL 39.0-49.9 35516-7) RDW-CV (test code = 16.0 % 12.0-15.5 H 788-0) PLT (test code = 259 See_Comment [Automated 777-3) message] The sy stem which generated this result transmitted reference range : 166 - 358 10*3/ ?L. The reference r lenard was not used to interpret this result as normal/abnormal . MPV (test code = 11.6 fL 9.5-12.9 24791-0) NRBC/100 WBC (test 0.0 See_Comment [Automat ed code = 1537349740) message] The system which generated this result transmitted reference range : 0.0 - 10.0 /100 WBCs. The refer ence range was not u sed to interpret th is result as normal/abnormal . NRBC x10^3 (test code See_Comment [Auto mated = 5465354994) message] The s ystem which generated this result transmitted reference range : 10*3/?L. The reference range was not used to interpret this result as normal/abnormal . GRAN MAT (NEUT) % 44.5 % (test code = 770-8) IMM GRAN % (test code 0.20 % = 8938938704) LYMPH % (test code = 42.1 % 736-9) MONO % (test code = 9.1 % 5905-5) EOS % (test code = 3.2 % 713-8) BASO % (test code = 0.9 % 706-2) GRAN MAT x10^3(ANC) 3.62 10*3/uL 1.88-7.09 (test code = 8828520119) IMM GRAN x10^3 (test 0.00-0.06 code = 0769422604) LYMPH x10^3 (test code 3.43 10*3/uL 1.32-3.29 H = 731-0) MONO x10^3 (test code 0.74 10*3/uL 0.33-0.92 = 742-7) EOS x10^3 (test code = 0.26 10*3/uL 0.03-0.39 711-2) BASO x10^3 (test code 0.07 10*3/uL 0.01-0.07 = 704-7) Lab Interpretation Abnormal (test code = 26204-1) [facility] Test Item Value Reference Range Interpretation Comments ABO & RH (test code = 20) A Positive IAT (test code = 1185) Negative [facility]23 12:08:00 Test Item Value Reference Range Interpretation Comments ABO & RH (test code = 20) A Positive IAT (test code = 1185) Negative [facility]2023-05-23 12:06:08 Test Item Value Reference Range Interpretation Comments POCT GLU (test code = 8297060381) 109 mg/dL 70-110 Lab Interpretation (test code = Normal 78250-3) [facility]-23 12:06:08 Test Item Value Reference Range Interpretation Comments POCT GLU (test code = 1938058490) 109 mg/dL 70-110 Lab Interpretation (test code = Normal 43078-3) [facility]2023-[facility]-01 21:17:20 Test Item Value Reference Range Interpretation Comments Height (test code = 64 in 1908982209) Weight (test code = 204 lbs 4540903942) Systolic BP (test code 103 mmHg = 1645679555) Diastolic BP (test code 61 mmHg = 0247326644) Heart Rate (test code = 79 bpm 2591664963) Ao root diam (test code 2.90 cm = 9075460755) Aortic root (test code 2.9 cm = 1089685631) Ao root annulus (test 2.9 cm code = 1517963691) BSA (test code = 1.97 m2 3562430272) LVOT diameter (test 1.64 cm code = 7464639647) LVOT area (test code = 2.12 cm2 7727052905) LA size (test code = 3.5 cm 8137333591) ACS (test code = 2.24 cm 7500091423) LVIDD (test code = 3.20 cm 5981491016) Left Ventricular End 42.3 mL Diastolic Volume by Teichholz Method (test code = 0090030) IVS (test code = 1.20 cm 0067420719) Interventricular Septum 1.20 cm Diastolic Thickness by 2D (test code = 5083279) LVPWD (test code = 1.22 cm 5712133665) PW (test code = 1.22 cm 0.6-1.3 0117033735) EF(Teich) (test code = 59.10 % 5184649617) LVIDS (test code = 2.26 cm 9772850398) Left Ventricular End 17.3 mL Systolic Volume by Teichholz Method (test code = 1914484) FS (test code = 30 % 5832266056) EF - 2D (test code = 59.10 % 34871786) PV PEAK VELOCITY (test 79.7 cm/s code = 3055274568) PV peak gradient (test 2.5 mmHg code = 8832562718) LAV(MOD-sp4) (test code 28.70 mL = 3683612593) MV E-F slope (test code 53.20 cm/s = 2427410016) MV Peak E Cristi (test 64.5 cm/s code = 5244938027) MV valve area p 1/2 3.20 cm2 method (test code = 7122545697) MV dec slope (test code 278.80 cm/s2 = 4780857433) MV P1/2t max cristi (test 65.00 cm/s code = 8395970210) MV Peak A Cristi (test 85.9 cm/s code = 7430982895) E/A ratio (test code = 0.75 ratio 1874807298) MR max PG (test code = 13.10 mm[Hg] 3249175929) MR max cristi (test code = 181.30 cm/s 8614155448) Mr max cristi (test code = 181.3 m/s 9419084098) LVOT stroke volume 47.90 cm3 (test code = 4772456109) LVOT peak cristi (test 125.2 cm/s code = 2312863129) LVOT mn grad (test code 2.7 mmHg = 9979248194) AV LVOT peak gradient 6.3 mmHg (test code = 8450601348) LVOT peak VTI (test 22.6 cm code = 5639597692) LV V1 mean (test code = 73.90 cm/s 5832353248) Aortic valve mean 93.5 cm/s velocity (test code = 8565652934) Ao peak cristi (test code 155.6 cm/s = 1852596038) Ao VTI (test code = 27.9 cm 5615222277) AV area by cont VTI 1.7 cm2 (test code = 7794079318) AV area peak cristi (test 1.7 cm2 code = 8098218146) Ao max PG (test code = 9.70 mm[Hg] 8773626591) AV peak gradient (test 9.7 mmHg code = 4687440888) AV valve area (test 1.72 cm2 code = 7006174100) AV mean gradient (test 4.1 mmHg code = 9300083589) TR Peak Cristi (test code 173.2 cm/s = 4924500643) Triscuspid Valve 12.0 mmHg Regurgitation Peak Gradient (test code = 2115713073) LA Volume Index (BP) 11.3 mL/m2 (test code = 7790003737) LA volume (BP) (test 22.3 mL code = 4281250755) LAV(MOD-sp2) (test code 13.70 mL = 9438776683) Radiology Study observation (narrative) (test code = 28445-9) JUAN FRANCISCO (test code = JUAN FRANCISCO) ?Left?Ventricle: Left ventricle size is normal. Normal wall thickness. Normal wall motion. Normal systolic function with a visually estimated EF of 60 - 65%. There is impaired relaxation. Patient did not want contrast. ?Tricuspid?Valve: Trace transvalvular regurgitation. Insufficient tricuspid regurgitation jet to estimate RVSP . ?RA pressure is 0-5 mmHg. ?Aorta: Mildly enlarged ascending aorta 3.5cm. Left VentricleLeft ventricle size is normal. Normal wall thickness. Normal wall motion. Normal systolic function with a visually estimated EF of 60 - 65%. There is impaired relaxation. Patient did not want contrast.Right VentricleRight ventricle size is normal. Normal systolic function.Left AtriumLeft atrium size is normal.Right AtriumRight atrium size is normal.IVC/SVCRA pressure is 0-5 mmHg.Mitral ValveMitral valve structure is normal. Mild mitral annular calcification. Trace transvalvular regurgitation.Tricuspi d ValveTricuspid valve structure is grossly normal. Trace transvalvular regurgitation. Insufficient tricuspid regurgitation jet to estimate RVSP . RA pressure is 0-5 mmHg.Aortic ValveAortic valve opens well. Mildly calcified cusps. No hemodynamically significant .Pulmonic ValveNot well visualized. Trace transvalvular regurgitation.Ascendin g AortaMildly enlarged ascending aorta 3.5cm.PericardiumNo pericardial effusion.Study DetailsStudy quality experienced technical difficulty. A complete echocardiogram was performed using 2D, color flow Doppler and spectral Doppler. [facility] Procedure Notes Date/Time Note Provider Source 2023-05-23 07:42:44 [id number]:42:44Associated AN-ANESTHESIOL [facility] Order(s): Nerve Block Images from the original note were not included.Nerve BlockProcedure: Interscalene Nerve Block (+ posterior cervical superficial plexus block)Patient Location: HoldingLaterality: LeftSurgical Anesthesia: Post Op Pain: Start Time: 05/23/2023 7:30 AMEnd Time: 05/23/2023 7:42 AMPost Op Pain Management requested by surgeon per surgical: Progress NoteAnesthesiologist: Bryant Ibarra MDResident/ETHERNET NETWORK ARCHITECT: Lori Lopez MDPerformed by: resident/CRNAPreanesthetic timeout completed prior to procedure: patient identified,IV checked, site marked, risks and benefits discussed, surgical consent, monitors and equipment checked, pre-op evaluation, timeout performedInformed consent obtained patient wishes to proceed: yesPatient Position: sittingSterile Prep/Drape: YesMonitoring: continuous pulse ox and blood pressureInjection Technique: single-shotNerve Block Needle Type: pajunk.Needle Gauge: 22 GNeedle Length: 4.0Number of Attempts: 1Technique: Ultrasound guided, Negative aspiration and Intermittent aspiration during injectionSensory Effect: AdequateEvents: Patient tolerated procedure well, Local anesthetic solution visualized around nerve, Negative Aspiration, No symptoms of intraneural or IV injection and No paresthesia on incremental injectionMedications Given:Regional:Ropiv 0.5% 25 mL 24481-0Zaikoblsgpnnfa procedure [id number]:46:38Anesthes iology procedure [id number]. [id number] for patient [id number] operation [id number]-[id number]-VVMXPJL [address] [id number]- 18T07:46:381.2.840.200315.1.72.3. 15|1.2.840.857342.1.13.104.2.7.2. [id number]"
[2023-06-15 04:23] LABS: Protime INR 1.14
[2023-06-15] MEDS ORDERED: NA CHLORIDE 0.9% 1,000 ML ONE (04:23)
[2023-06-15] MEDS ORDERED: ONDANSETRON 4 MG/2 ML VIAL ONE ×2 (04:23→06:08)
[2023-06-15 04:24] LABS: Absolute Lymphocytes (CBC) 2.1 K/uL (0.7-4.9); Hematocrit 36.8 % (36.0-45.0); MCV 73.2 fL (80-100); MPV 9.2 fL (7.6-11.3); Platelets 334 thou/uL (152-406); RBC Red Blood Cell Count 5.02 M/uL (3.86-4.86)
[2023-06-15 04:41] LABS: ALT/SGPT 32 U/L (13-56); AST/SGOT 27 U/L (15-37); Alkaline Phosphatase 69 U/L (45-117); BUN Blood Urea Nitrogen 17 mg/dL (7-18); Bicarbonate 28 mEq/L (21-32); Bilirubin Total 0.4 mg/dL (0.2-1.0); Glomerular Filtration Rate 52 ml/min (=/>90); Glucose Level 126 mg/dL (74-106); Lipase 91 U/L (13-75); Magnesium 1.8 mg/dL (1.6-2.4); NT PRO-BNP 45 pg/mL (<125); Potassium 3.3 mEq/L (3.5-5.1); Protein, Total 7.2 g/dL (6.4-8.2); Sodium Level 139 mEq/L (136-145); Troponin High Sensitivity 5.8 pg/mL (<58.9)
[2023-06-15 04:43] LABS: Bilirubin Direct < 0.1 mg/dL (0-0.2); Bilirubin Indirect, Calculated ND mg/dL (0.2-0.8)
[2023-06-15] MEDS ORDERED: FENTANYL CITR 100 MCG/2 ML ONE (05:02)
[2023-06-15] MEDS ORDERED: METRONIDAZOLE 500mg IVPB 500 MG/100 ML BAG IV ONE (05:02)
[2023-06-15] MEDS ORDERED: CIPROFLOXACIN 400mg IV 400 MG/200 ML BAG IV ONE (05:02)
[2023-06-15] MEDS ORDERED: NS KCL 20MEQ 1,000 ML IV ONE (05:10)
[2023-06-15 05:38] LABS: Urine Bacteria <20 /HPF (<20); Urine Bilirubin NEGATIVE (Negative); Urine Blood Negative (Negative); Urine Clarity Extremely Turbid (Clear); Urine Color Light-Yellow (Yellow); Urine Glucose 4+ (Negative); Urine Mucus Slight /HPF (None Seen); Urine Protein TRACE (Negative); Urine RBC None Seen /HPF (None Seen); Urine Urobilinogen Normal (Normal)
[2023-06-15] MEDS ORDERED: MORPHINE 4 MG/ML SYR ONE (06:08)
--- NOTE | 2023-06-15 06:26 | ER ---
Nurse's Notes [facility] Name: Octavia Anderson Age: 73 yrs Sex: Female : 1950 Arrival Date: 06/15/2023 Time: 03:12 Bed 7 Private MD: Diagnosis: Abdominal pain, unspecified;Abdominal tenderness;Obesity, unspecified;UTI/ Urinary tract infection, site not specified;Nausea with vomiting, unspecified;Other ovarian cysts Presentation: 06/15 03:31 Chief complaint: Patient's son or daughter states: N/V SINCE 0130. Coronavirus screen: bp nausea, vomiting. Client presents with at least one sign or symptom that may indicate coronavirus-19. Standard/surgical mask placed on the client. Ebola Screen: No symptoms or risks identified at this time. Initial Sepsis Screen: Does the patient meet any 2 criteria? No. Patient's initial sepsis screen is negative. Does the patient have a suspected source of infection? No. Patient's initial sepsis screen is negative. Risk Assessment: Do you want to hurt yourself or someone else? Patient reports no desire to harm self or others. Onset of symptoms was June 15, 2023 at 01:30. 03:31 Method Of Arrival: Wheelchair bp 03:31 Acuity: MYRNA 3 bp Historical: - Allergies: 03:32 PENICILLINS; bp - PMHx: 03:32 Arthritis; Diabetes - NIDDM; GERD; Headaches; Hyperlipidemia; Hypertension; bp - Immunization history:: Adult Immunizations up to date. - Social history:: Smoking status: Patient denies any tobacco usage or history of. Screenin:05 [facility] ED Fall Risk Assessment (Adult) History of falling in the last 3 months, lg3 including since admission No falls in past 3 months (0 pts). Abuse screen: Denies threats or abuse. Denies injuries from another. Nutritional screening: No deficits noted. Tuberculosis screening: No symptoms or risk factors identified. Assessment: 04:05 General: Appears in no apparent distress. uncomfortable, Behavior is calm, cooperative. lg3 Pain: Complains of pain in right lower quadrant and left lower quadrant Pain does not radiate. Pain currently is 8 out of 10 on a pain scale. Quality of pain is described as crampy, heavy, Pain began suddenly, 2 hours ago. Also complains of nausea. Neuro: No deficits noted. Cabrera Agitation-Sedation Scale (RASS): 0 - Alert and Calm Level of Consciousness is awake, alert, obeys commands, Oriented to person, place, time, situation. Cardiovascular: No deficits noted. Denies chest pain, shortness of breath, Capillary refill < 3 seconds Clubbing of nail beds is absent JVD is absent Patient's skin is warm and dry. Respiratory: No deficits noted. Airway is patent Respiratory effort is even, unlabored, Respiratory pattern is regular, symmetrical. GI: Reports intolerance of fluids, intolerance of food, nausea, vomiting. : No deficits noted. No signs and/or symptoms were reported regarding the genitourinary system. EENT: No deficits noted. No signs and/or symptoms were reported regarding the EENT system. Derm: No deficits noted. No signs and/or symptoms reported regarding the dermatologic system. Skin is intact, is healthy with good turgor, Skin is dry, Skin is normal, Skin temperature is warm. Musculoskeletal: No deficits noted. No signs and/or symptoms reported regarding the musculoskeletal system. Circulation, motion, and sensation intact. Range of motion: intact in all extremities. 05:47 Reassessment: Patient appears in no apparent distress at this time. No changes from lg3 previously documented assessment. Patient and/or family updated on plan of care and expected duration. Pain level reassessed. Patient is alert, oriented x 3, equal unlabored respirations, skin warm/dry/pink. Patient states symptoms have not improved. 06:52 Reassessment: Patient appears in no apparent distress at this time. No changes from lg3 previously documented assessment. Patient and/or family updated on plan of care and expected duration. Pain level reassessed. Patient is alert, oriented x 3, equal unlabored respirations, skin warm/dry/pink. Patient states feeling better. Patient states symptoms have improved. Vital Signs: 03:31 BP 150 / 82; Pulse 76; Resp 16; Temp 97.2; Pulse Ox 100% ; bp 05:47 BP 154 / 80; Pulse 79; Resp 17 S; Pulse Ox 100% on R/A; lg3 06:30 BP 148 / 79; Pulse 83; Resp 18 S; Pulse Ox 100% on R/A; km8 Kalyn Coma Score: 04:53 Eye Response: spontaneous(4). Motor Response: obeys commands(6). Verbal Response: alan oriented(5). Total: 15. ED Course: 03:28 Patient arrived in ED. jj6 03:32 Triage completed. bp 03:32 Arm band placed on. bp 03:39 Ray Nowak MD is Attending Physician. alan 03:50 XRAY Chest (1 view) In Process Unspecified. EDMS 03:54 Inserted saline lock: 20 gauge in right antecubital area, using aseptic technique. kmf Blood collected. 03:55 Basic Metabolic Panel Sent. kmf 03:55 CBC with Diff Sent. kmf 03:55 LFT's Sent. kmf 03:55 Magnesium Sent. kmf 03:55 NT PRO-BNP Sent. kmf 03:55 PT-INR Sent. kmf 03:55 Troponin HS Sent. kmf 04:05 Patient has correct armband on for positive identification. Placed in gown. Bed in low lg3 position. Call light in reach. Side rails up X 1. Client placed on continuous cardiac and pulse oximetry monitoring. NIBP monitoring applied. assistant branch manager on. Door closed. Noise minimized. Warm blanket given. Family accompanied patient. 04:05 Patient maintains SpO2 saturation greater than 95% on room air. lg3 04:08 Lipase Sent. lg3 04:55 Hilda Norton, RN is Primary Nurse. lg3 05:25 US Abdomen Limited In Process Unspecified. EDMS 05:38 CT Abd/Pelvis - IV Contrast Only In Process Unspecified. EDMS 06:28 Kimberly Humphries MD is Referral Physician. alan 06:53 No provider procedures requiring assistance completed. IV discontinued, intact, lg3 bleeding controlled, No redness/swelling at site. Pressure dressing applied. Administered Medications: 06:48 Discontinued: ns 0.9% with kcl20 meq/l 1000 ml IV at 125 ml/hr continuous lg3 04:15 Drug: Ondansetron IVP 4 mg IVP once; over 2 minutes Route: IVP; Site: right antecubital;lg3 05:46 Follow up: Response: No adverse reaction; Marked relief of symptoms lg3 04:16 Drug: NS 0.9% IV 1000 ml IV at 1 bolus Per protocol; 1000 mL bolus Route: IV; Rate: 1 lg3 bolus; Site: right antecubital; 05:46 Follow up: IV Status: Completed infusion; IV Intake: 1000ml lg3 04:51 Drug: metroNIDAZOLE IVPB 500 mg 100 ml IVPB at 200 ml/hr once over 30 mins Volume: 100 lg3 ml; Route: IVPB; Rate: 200 ml/hr; Infused Over: 30 mins; Site: right antecubital; 05:45 Follow up: Response: No adverse reaction; IV Status: Completed infusion; IV Intake: lg3 100ml 04:51 Drug: fentaNYL (PF) IVP 25 mcg IVP once Route: IVP; Site: right antecubital; lg3 05:46 Follow up: Response: No adverse reaction; Marked relief of symptoms; Pain is decreased; lg3 RASS: Alert and Calm (0) 05:04 Drug: NS 0.9% with KCl IV 20 mEq/L 1000 ml IV at 125 ml/hr continuous Route: IV; Rate: lg3 125 ml/hr; Site: right antecubital; 05:45 Drug: Ciprofloxacin IVPB 400 mg 200 ml IVPB once over 60 mins Volume: 200 ml; Route: lg3 IVPB; Infused Over: 60 mins; Site: right antecubital; 06:49 Follow up: Response: No adverse reaction; IV Status: Completed infusion; IV Intake: lg3 200ml 05:57 Drug: morphine IVP or IV 4 mg IVP once over 4 mins Route: IVP; Infused Over: 4 mins; lg3 Site: right antecubital; 06:48 Follow up: Response: No adverse reaction; Marked relief of symptoms lg3 05:57 Drug: Ondansetron IVP 4 mg IVP once; over 2 minutes Route: IVP; Site: right antecubital;lg3 06:48 Follow up: Response: No adverse reaction lg3 06:48 Drug: Rocephin IV 1 grams IV at per protocol once; Given slow IV push per pharmacy lg3 instructions Route: IV; Rate: per protocol; Site: right antecubital; 06:48 Follow up: Response: No adverse reaction; IV Status: Completed infusion; IV Intake: 20tucv0 06:48 Drug: Potassium PO Effervescent Tablet 25 mEq PO once; dissolve in 4 ounces of water or lg3 juice Route: PO; 06:49 Follow up: Response: No adverse reaction lg3 Medication: 06:53 VIS not applicable for this client. lg3 Intake: 05:45 IV: 100ml; Total: 100ml. lg3 05:46 IV: 1000ml; Total: 1100ml. lg3 06:48 IV: 10ml; Total: 1110ml. lg3 06:49 IV: 200ml; Total: 1310ml. lg3 Outcome: 06:26 Discharge ordered by . alan 06:53 Discharged to home via wheelchair, with family, lg3 06:53 Condition: stable 06:53 Discharge instructions given to patient, Instructed on discharge instructions, follow up and referral plans. medication usage, Demonstrated understanding of instructions, follow-up care, medications, Prescriptions given X 3, 06:53 Patient left the ED. lg3 Signatures: Dispatcher [employer] EDMS Ray Nowak MD MD cha Peltier, Brian, RN RN Hilda Porras RN RN lg3 Judy High jj6 Mel Francisco [facility] Niyah Gresham RN RN km8 Corrections: (The following items were deleted from the chart) 04:15 04:05 Pain: Denies pain. lg3 lg3 05:51 05:47 Reassessment: Patient appears in no apparent distress at this time. No changes lg3 from previously documented assessment. Patient and/or family updated on plan of care and expected duration. Pain level reassessed. Patient is alert, oriented x 3, equal unlabored respirations, skin warm/dry/pink. Patient states symptoms have improved. lg3
--- NOTE | 2023-06-15 06:26 | EDPHYS ---
Physician Documentation [facility] Name: Octavia Anderson Age: 73 yrs Sex: Female : 1950 Arrival Date: 06/15/2023 Time: 03:12 Bed 7 Private MD: ED Physician Ray Nowak HPI: 06/15 04:52 This 73 yrs old Black Female presents to ER via Wheelchair with complaints of Abdominal alan Pain, Nausea/Vomiting. 04:52 The patient presents to the emergency department with nausea, vomiting, described as alan bilious, abdominal pain, of the epigastric area, right upper quadrant, left upper quadrant, right lower quadrant and left lower quadrant. Onset: The symptoms/episode began/occurred last night. Possible causes: unknown. The symptoms are aggravated by movement, pressure, food . Associated signs and symptoms: Pertinent positives: abdominal pain, nausea, vomiting. Severity of symptoms: At their worst the symptoms were mild in the emergency department the symptoms are unchanged. The patient has not experienced similar symptoms in the past. Historical: - Allergies: 03:32 PENICILLINS; bp - PMHx: 03:32 Arthritis; Diabetes - NIDDM; GERD; Headaches; Hyperlipidemia; Hypertension; bp - Immunization history:: Adult Immunizations up to date. - Social history:: Smoking status: Patient denies any tobacco usage or history of. ROS: 04:53 Constitutional: Negative for fever, chills, and weight loss, Eyes: Negative for injury, alan pain, redness, and discharge, ENT: Negative for injury, pain, and discharge, Neck: Negative for injury, pain, and swelling, Cardiovascular: Negative for chest pain, palpitations, and edema, Respiratory: Negative for shortness of breath, cough, wheezing, and pleuritic chest pain, Back: Negative for injury and pain, : Negative for injury, bleeding, discharge, and swelling, MS/Extremity: Negative for injury and deformity, Skin: Negative for injury, rash, and discoloration, Neuro: Negative for headache, weakness, numbness, tingling, and seizure, Psych: Negative for depression, anxiety, suicide ideation, homicidal ideation, and hallucinations, Allergy/Immunology: Negative for hives, rash, and allergies, Endocrine: Negative for neck swelling, polydipsia, polyuria, polyphagia, and marked weight changes, Hematologic/Lymphatic: Negative for swollen nodes, abnormal bleeding, and unusual bruising, 04:53 Abdomen/GI: Positive for abdominal pain, nausea and vomiting, abdominal cramps, of the epigastric area, left upper quadrant, right lower quadrant and left lower quadrant, Exam: 04:51 ECG was reviewed by the Attending Physician. alan 04:53 Constitutional: This is a well developed, well nourished patient who is awake, alert, alan and in no acute distress. Head/Face: Normocephalic, atraumatic. Eyes: Pupils equal round and reactive to light, extra-ocular motions intact. Lids and lashes normal. Conjunctiva and sclera are non-icteric and not injected. Cornea within normal limits. Periorbital areas with no swelling, redness, or edema. ENT: Nares patent. No nasal discharge, no septal abnormalities noted. Tympanic membranes are normal and external auditory canals are clear. Oropharynx with no redness, swelling, or masses, exudates, or evidence of obstruction, uvula midline. Mucous membranes moist. Neck: Trachea midline, no thyromegaly or masses palpated, and no cervical lymphadenopathy. Supple, full range of motion without nuchal rigidity, or vertebral point tenderness. No Meningismus. Chest/axilla: Normal chest wall appearance and motion. Nontender with no deformity. No lesions are appreciated. Cardiovascular: Regular rate and rhythm with a normal S1 and S2. No gallops, murmurs, or rubs. Normal PMI, no JVD. No pulse deficits. Respiratory: Lungs have equal breath sounds bilaterally, clear to auscultation and percussion. No rales, rhonchi or wheezes noted. No increased work of breathing, no retractions or nasal flaring. Back: No spinal tenderness. No costovertebral tenderness. Full range of motion. Female : Normal external genitalia. Skin: Warm, dry with normal turgor. Normal color with no rashes, no lesions, and no evidence of cellulitis. MS/ Extremity: Pulses equal, no cyanosis. Neurovascular intact. Full, normal range of motion. Neuro: Awake and alert, GCS 15, oriented to person, place, time, and situation. Cranial nerves II-XII grossly intact. Motor strength 5/5 in all extremities. Sensory grossly intact. Cerebellar exam normal. Normal gait. Psych: Awake, alert, with orientation to person, place and time. Behavior, mood, and affect are within normal limits. 04:53 Abdomen/GI: Inspection: abdomen appears normal, Bowel sounds: normal, Palpation: mild abdominal tenderness, in all quadrants, Liver: no appreciated palpable abnormalities, Hernia: not appreciated, Vital Signs: 03:31 BP 150 / 82; Pulse 76; Resp 16; Temp 97.2; Pulse Ox 100% ; bp 05:47 BP 154 / 80; Pulse 79; Resp 17 S; Pulse Ox 100% on R/A; lg3 06:30 BP 148 / 79; Pulse 83; Resp 18 S; Pulse Ox 100% on R/A; km8 Kalyn Coma Score: 04:53 Eye Response: spontaneous(4). Motor Response: obeys commands(6). Verbal Response: alan oriented(5). Total: 15. MDM: 03:39 Patient medically screened. alan 04:54 Differential diagnosis: Nonspecific abd pain, gastritis, pancreatitis, appendicitis, alan diverticulitis, viral gastroenteritis, gastroenteritis. Data reviewed: vital signs, nurses notes, EMS record, lab test result(s), EKG, radiologic studies, CT scan, plain films, ultrasound. Consideration of Admission/Observation Escalation of care including admission/observation considered. I considered the following discharge prescriptions or medication management in the emergency department Medications were administered in the Emergency Department. See MAR. Independent interpretation of the following test(s) in the Emergency Department EKG: See my EKG interpretation above. Test considered but Not performed: MRI: NO MRCP. Care significantly affected by the following chronic conditions: Diabetes, Hypertension, Obesity, GERD, JACOME, HYPERLIPIDS. 06/15 03:40 Order name: Basic Metabolic Panel; Complete Time: 04:46 [facility] 06/15 03:40 Order name: CBC with Diff; Complete Time: 04:46 [facility] 06/15 03:40 Order name: LFT's; Complete Time: 04:46 06/15 03:40 Order name: Magnesium; Complete Time: 04:46 [facility] 06/15 03:40 Order name: NT PRO-BNP; Complete Time: 04:46 [facility] 06/15 03:40 Order name: PT-INR; Complete Time: 04:46 06/15 03:40 Order name: Troponin HS; Complete Time: 04:46 06/15 03:40 Order name: Lipase; Complete Time: 04:46 [facility] 06/15 03:40 Order name: Urinalysis w/ reflexes; Complete Time: 06:20 [facility] 06/15 03:40 Order name: XRAY Chest (1 view) [facility] 06/15 03:47 Order name: CT Abd/Pelvis - IV Contrast Only [facility] 06/15 04:31 Order name: US Abdomen Limited [facility] 06/15 03:40 Order name: EKG; Complete Time: 03:41 [facility] 06/15 03:40 Order name: Cardiac monitoring; Complete Time: 04:08 [facility] 06/15 03:40 Order name: EKG - Nurse/Tech; Complete Time: 04:08 [facility] 06/15 03:40 Order name: IV Saline Lock; Complete Time: 04:08 [facility] 06/15 03:40 Order name: Labs collected and sent; Complete Time: 04:08 [facility] 06/15 03:40 Order name: O2 Per Protocol; Complete Time: 04:08 [facility] 06/15 03:40 Order name: O2 Sat Monitoring; Complete Time: 04:08 [facility] EC:51 Rate is 75 beats/min. QRS [place] is Normal. QRS interval is normal. QT interval is alan normal. No Q waves. T waves are Normal. No ST changes noted. Clinical impression: NSR w/ Non-specific ST/T Changes, Abnormal EKG without significant change, LVH, and No evidence of ischemia. Interpreted by me. Reviewed by me. Administered Medications: 06:48 Discontinued: ns 0.9% with kcl20 meq/l 1000 ml IV at 125 ml/hr continuous lg3 04:15 Drug: Ondansetron IVP 4 mg IVP once; over 2 minutes Route: IVP; Site: right antecubital;lg3 05:46 Follow up: Response: No adverse reaction; Marked relief of symptoms lg3 04:16 Drug: NS 0.9% IV 1000 ml IV at 1 bolus Per protocol; 1000 mL bolus Route: IV; Rate: 1 lg3 bolus; Site: right antecubital; 05:46 Follow up: IV Status: Completed infusion; IV Intake: 1000ml lg3 04:51 Drug: metroNIDAZOLE IVPB 500 mg 100 ml IVPB at 200 ml/hr once over 30 mins Volume: 100 lg3 ml; Route: IVPB; Rate: 200 ml/hr; Infused Over: 30 mins; Site: right antecubital; 05:45 Follow up: Response: No adverse reaction; IV Status: Completed infusion; IV Intake: lg3 100ml 04:51 Drug: fentaNYL (PF) IVP 25 mcg IVP once Route: IVP; Site: right antecubital; lg3 05:46 Follow up: Response: No adverse reaction; Marked relief of symptoms; Pain is decreased; lg3 RASS: Alert and Calm (0) 05:04 Drug: NS 0.9% with KCl IV 20 mEq/L 1000 ml IV at 125 ml/hr continuous Route: IV; Rate: lg3 125 ml/hr; Site: right antecubital; 05:45 Drug: Ciprofloxacin IVPB 400 mg 200 ml IVPB once over 60 mins Volume: 200 ml; Route: lg3 IVPB; Infused Over: 60 mins; Site: right antecubital; 06:49 Follow up: Response: No adverse reaction; IV Status: Completed infusion; IV Intake: lg3 200ml 05:57 Drug: morphine IVP or IV 4 mg IVP once over 4 mins Route: IVP; Infused Over: 4 mins; lg3 Site: right antecubital; 06:48 Follow up: Response: No adverse reaction; Marked relief of symptoms lg3 05:57 Drug: Ondansetron IVP 4 mg IVP once; over 2 minutes Route: IVP; Site: right antecubital;lg3 06:48 Follow up: Response: No adverse reaction lg3 06:48 Drug: Rocephin IV 1 grams IV at per protocol once; Given slow IV push per pharmacy lg3 instructions Route: IV; Rate: per protocol; Site: right antecubital; 06:48 Follow up: Response: No adverse reaction; IV Status: Completed infusion; IV Intake: [id number] 06:48 Drug: Potassium PO Effervescent Tablet 25 mEq PO once; dissolve in 4 ounces of water or lg3 juice Route: PO; 06:49 Follow up: Response: No adverse reaction lg3 Disposition Summary: 06/15/23 06:26 Discharge Ordered Notes: Location: Home alan Problem: new alan Symptoms: have improved alan Condition: Stable alan Diagnosis - Abdominal pain, unspecified alan - Abdominal tenderness alan - Obesity, unspecified alan - UTI/ Urinary tract infection, site not specified alan - Nausea with vomiting, unspecified alan - Other ovarian cysts alan Followup: alan - With: Private Physician - When: 2 - 3 days - Reason: Recheck today's complaints, Continuance of care, Re-evaluation by your physician Followup: [facility] - With: Kimberly Humphries MD - When: 2 - 3 days - Reason: Recheck today's complaints, Continuance of care, Re-evaluation by your physician Discharge Instructions: - Discharge Summary Sheet alan - Abdominal Pain, Adult alan - Obesity, Adult alan - Ovarian Cyst alan - Urinary Tract Infection, Adult alan - Urinary Tract Infection, Adult, [id number] alan - Abdominal Pain, Adult, Bxet-hv-Thra alan - Ovarian Cyst, Egmp-ro-[id number] [facility] Forms: - Medication Reconciliation Form [facility] - Thank You Letter [facility] - Antibiotic Education [facility] - Prescription Opioid Use [facility] - Patient Portal Instructions [facility] - Leadership Thank You Letter [facility] Prescriptions: - ondansetron 8 mg Oral Tablet,disintegrating - take 1 tablet ORAL route every 6-8 hours for 5 days; 20 tablet; Refills: 0, [facility] Product Selection Permitted - Cipro 250 mg Oral tablet - take 1 tablet ORAL route every 12 hours; 14 tablet; Refills: 0, Product [facility] Selection Permitted - dicyclomine 10 mg/5 mL Oral solution - take 10 milliliters ORAL route 4 times per day; 200 milliliter; Refills: 0, [facility] Product Selection Permitted Signatures: Dispatcher [employer] Ray Ashford MD MD cha Peltier, Brian, RN RN Hilda Porras RN RN lg3
[2023-06-15] MEDS ORDERED: POTASSIUM 25 MEQ EFFERV TAB ONE (06:54)
[2023-06-15] MEDS ORDERED: CEFTRIAXONE 1000 MG/VIAL ONE (06:54)
[2023-06-15 07:34] VITALS: O2SAT 100
[2023-06-15 07:35] VITALS: TEMP 97.2
[2023-06-15 07:37] VITALS: BP 148/79
--- NOTE | 2023-06-15 10:39 | RAD REPORT ---
EXAM DESCRIPTION: RAD - Chest Single View - 06/15/2023 3:49 am CLINICAL HISTORY: ABDOMINAL DISTENTION COMPARISON: None. TECHNIQUE: XR CHEST 1 VIEW 06/15/2023 3:40 AM CDT FINDINGS: The heart is enlarged. Lungs are clear without consolidation, atelectasis, mass or edema. There may be a small left pleural effusion. There is no pneumothorax. There are no acute osseous find ings. Left shoulder arthroplasty was performed. IMPRESSION: No definite pneumonia. Electronically signed by: Tucker Roberto MD 06/15/2023 4:47 AM CDT Due to temporary technical issues with the PACS/Fluency reporting system, reports are being signed by the in house radiologist without review as a courtesy to ensure prompt reporting. The interpreting r adiologist is fully responsible for the content of the report.
--- NOTE | 2023-06-15 10:44 | RAD REPORT ---
EXAM DESCRIPTION: CT - Abdomen Pelvis W Contrast - 06/15/2023 6:55 am CLINICAL HISTORY: ABD PAIN COMPARISON: 02/14/2019. TECHNIQUE: CT ABDOMEN PELVIS WITH IV CONTRAST on 06/15/2023 3:47 AM CDT This exam was performed according to our departmental dose-optimization program, which includes autom ated exposure control, adjustment of the mA and/or kV according to patient size and/or use of iterati ve reconstruction technique. FINDINGS: Lower lungs are clear. Abdomen: The liver is normal in appearance. There is no biliary dilatation. There is a small hiatal h ernia. Gallbladder contains layering sludge. The pancreas and spleen are normal in appearance. Adrena l glands are normal. Kidneys are mildly atrophic. There are multiple cysts within the left kidney inc luding a partially complex lower pole cyst measuring 7.5 x 7.2 cm. Abdominal aorta is normal in course and caliber without aneurysm. There is no free air. There is no r etroperitoneal adenopathy. There is a small fat-containing umbilical hernia. Pelvis: There is no bowel obstruction. Urinary bladder is unremarkable. There is no free fluid. Hyste rectomy was performed. The appendix is normal. Skeleton: There are no acute osseous findings. No suspicious bony lesions. IMPRESSION: No definite acute inflammatory process. Unchanged partially complex left renal cyst. Electronically signed by: Tucker Roberto MD 06/15/2023 6:09 AM CDT Due to temporary technical issues with the PACS/Fluency reporting system, reports are being signed by the in house radiologist without review as a courtesy to ensure prompt reporting. The interpreting r adiologist is fully responsible for the content of the report.
--- NOTE | 2023-06-15 10:47 | RAD REPORT ---
EXAM DESCRIPTION: US - Abdomen Exam Limited - 06/15/2023 5:23 am CLINICAL HISTORY: ABD PAIN COMPARISON: None. TECHNIQUE: US ABDOMEN LIMITED 06/15/2023 4:31 AM CDT FINDINGS: The liver is normal in echogenicity. Common bile duct measures 3 mm. Gallbladder is normal ly distended containing minimal sludge. There is no wall thickening or pericholecystic fluid. IMPRESSION: Minimal gallbladder sludge. No acute findings. Electronically signed by: Tucker Roberto MD 06/15/2023 6:07 AM CDT Due to temporary technical issues with the PACS/Fluency reporting system, reports are being signed by the in house radiologist without review as a courtesy to ensure prompt reporting. The interpreting r adiologist is fully responsible for the content of the report.
--- NOTE | 2023-06-15 12:35 | EKG ---
Test Date: 2023-06-15 Test Time: 04:11:34 Senior Technical Analyst: PRIETO MEASUREMENT RESULTS: Intervals: Rate: 75 IN: 166 QRSD: 102 QT: 394 QTc: 439 [place]: P: 77 IN: 166 QRS: -13 T: -6 INTERPRETIVE STATEMENTS: Normal sinus rhythm Voltage criteria for left ventricular hypertrophy Possible Lateral infarct, age undetermined Abnormal ECG Compared to ECG 02/14/2019 12:00:34 Myocardial infarct finding now present Sinus arrhythmia no longer present Electronically Signed On 06-15-23 12:34:20 CDT by William Tello
== END 2023-06-15 06:53 | disposition home or self-care (01) ==
LOC: ER 03:12
DX: N39.0 Urinary tract infection, site not specified (principal); R11.2 Nausea with vomiting, unspecified; N83.299 Other ovarian cyst, unspecified side; E66.9 Obesity, unspecified; I10 Essential (primary) hypertension; E11.9 Type 2 diabetes mellitus without complications; Z88.0 Allergy status to penicillin
CPT/HCPCS: 93005; 85025; 81001; 80048; 36415; 83735; 85610; 80076; 84484; 83690; 83880; 74177; 71045; 76705; Q9967; J3010; J2405 ×2; J0744; J7030; J0696; J3480

== ENCOUNTER 2024-07-13 13:14 | Emergency (ER) | payer OTHER ==
[2024-07-13] MEDS ORDERED: HYDROCODONE/APAP 7.5/325 MG TAB ONE (13:55)
[2024-07-13] MEDS ORDERED: IBUPROFEN 400 MG TAB ONE (13:55)
[2024-07-13 14:24] LABS: Specific Gravity 1.029 (1.005-1.030); Urine Clarity Slightly Cloudy (Clear); Urine Color Yellow (Yellow)
[2024-07-13 14:25] LABS: Urine Bilirubin NEGATIVE (Negative); Urine Blood Negative (Negative); Urine Glucose 1+ (Negative); Urine Ketones Negative (Negative); Urine Protein 1+ (Negative)
[2024-07-13 14:26] LABS: Urine Urobilinogen Normal mg/dL (0.2-1.0)
[2024-07-13 14:27] LABS: Sqamous Epithelial <5 /HPF (None Seen); Urine Bacteria 20-50 /HPF (<20); Urine Culture Reflex Order NOT NEEDED; Urine Microscopic Reflex YN ORDER UMIC; Urine Nitrite Negative (Negative); Urine RBC <5 /HPF (None Seen); Urine WBC <5 /HPF (<5)
--- NOTE | 2024-07-13 16:00 | RAD REPORT ---
Exam:Hip Right 2 View HISTORY: Right hip pain FINDINGS: No fracture or dislocation seen. Osteoporosis
--- NOTE | 2024-07-13 16:13 | ER ---
Nurse's Notes [facility] Name: Octavia Anderson Age: 74 yrs Sex: Female : 1950 Arrival Date: 07/13/2024 Time: 13:14 Bed 11 Private MD: Diagnosis: Sciatica, right side Presentation: 07/13 13:19 Chief complaint: Patient states: right hip joint pain since this morning , no injury, iw did not fall. Coronavirus screen: At this time, the client does not indicate any symptoms associated with coronavirus-19. Ebola Screen: No symptoms or risks identified at this time. Initial Sepsis Screen: Does the patient meet any 2 criteria? No. Patient's initial sepsis screen is negative. Does the patient have a suspected source of infection? No. Patient's initial sepsis screen is negative. Risk Assessment: Do you want to hurt yourself or someone else? Patient reports no desire to harm self or others. Onset of symptoms was July 13, 2024. 13:19 Method Of Arrival: Wheelchair iw 13:19 Acuity: MYRNA 4 iw Historical: - Allergies: 13:20 PENICILLINS; iw - PMHx: 13:20 Hyperlipidemia; Hypertension; Headaches; Diabetes - NIDDM; Arthritis; GERD; iw - Immunization history:: Adult Immunizations up to date. - Infectious Disease History:: Denies. - Social history:: Smoking status: Patient denies any tobacco usage or history of. Screenin:37 [facility] ED Fall Risk Assessment (Adult) History of falling in the last 3 months, iw including since admission No falls in past 3 months (0 pts) Confusion or Disorientation No (0 pts) Intoxicated or Sedated No (0 pts) Impaired Gait Yes (1 pt) Mobility Assist Device Used Yes (1 pt) Altered Elimination No (0 pt) Score/Fall Risk Level 0 - 2 = Low Risk Oriented to surroundings, Maintained a safe environment. Abuse screen: Denies threats or abuse. Nutritional screening: No deficits noted. Tuberculosis screening: No symptoms or risk factors identified. Assessment: 13:59 General: Appears uncomfortable, Behavior is calm, cooperative. Pain: Complains of pain aa5 in right hip Pain does not radiate. Pain currently is 10 out of 10 on a pain scale. Quality of pain is described as sharp, Pain began this morning Is continuous, Aggravated by weight bearing, movement. Neuro: Level of Consciousness is awake, alert, obeys commands, Oriented to person, place, time, situation. Cardiovascular: Patient's skin is warm and dry. Respiratory: Airway is patent Respiratory effort is even, unlabored, Respiratory pattern is regular, symmetrical. GI: Abdomen is round non-distended. : No signs and/or symptoms were reported regarding the genitourinary system. EENT: No signs and/or symptoms were reported regarding the EENT system. Derm: Skin is dry, Skin is normal, Skin temperature is warm. Musculoskeletal: Reports pain in right hip. 14:13 Reassessment: Assisted to restroom for urine specimen collection, pt placed in bed ER aa5 Room 11. . 15:00 Neuro: Level of Consciousness is awake, alert, obeys commands, Oriented to person, aa5 place, time, situation. Respiratory: Airway is patent Respiratory effort is even, unlabored, Respiratory pattern is regular, symmetrical. Derm: Skin is dry, Skin is normal, Skin temperature is warm. 15:00 Reassessment: Patient states feeling better. Pain: Pain currently is 7 out of 10 on a aa5 pain scale. 16:37 Reassessment: Patient appears in no apparent distress at this time. Patient and/or iw family updated on plan of care and expected duration. Pain level reassessed. pt requesting to be discharged, instructions given to pt and sister. Vital Signs: 13:19 BP 147 / 87; Pulse 77; Resp 16; Temp 97.9(O); Pulse Ox 98% ; Weight 88 kg; Height 5 ft. iw 4 in. ; Pain 10/10; 15:00 BP 132 / 84; Pulse 69; Resp 14 S; Pulse Ox 99% on R/A; aa5 13:19 Body Mass Index 33.30 (88.00 kg, 162.56 cm) iw 13:19 Pain Scale: Adult iw ED Course: 13:15 Patient arrived in ED. ra3 13:17 Ray Winchester PA is PHCP. cp 13:17 Black Gomez DO is Attending Physician. cp 13:20 Triage completed. iw 13:20 Arm band placed on. iw 13:59 Sheree Harris, RN is Primary Nurse. aa5 13:59 Patient has correct armband on for positive identification. Bed in low position. Call aa5 light in reach. Side rails up X2. Pulse ox on. NIBP on. 14:13 Urine collected: clean catch specimen, urine sent to lab. aa5 15:39 XRAY Hip RIGHT 2 view In Process Unspecified. EDMS 16:38 No provider procedures requiring assistance completed. Patient did not have IV access iw during this emergency room visit. Administered Medications: 13:59 Drug: Ibuprofen PO 800 mg PO once Route: PO; aa5 15:00 Follow up: Response: No adverse reaction aa5 14:00 Drug: Hydrocodone-Acetaminophen PO (7.5 mg-325 mg) 1 tabs PO once; RASS on ADMIN: aa5 Combtv4, Very Agttd3, Agttd2, Rstlss1, AlertClm0, Drwsy-1, Lt Sdtn-2, Mod Sdtn-3, Dp Sdtn-4, UnArsble-5 Route: PO; 15:00 Follow up: Response: No adverse reaction aa5 Medication: 15:00 VIS not applicable for this client. aa5 Outcome: 16:13 Discharge ordered by . cp 16:38 Discharged to home via wheelchair, with family, iw 16:38 Condition: good 16:38 Discharge instructions given to patient, family, Instructed on discharge instructions, follow up and referral plans. Demonstrated understanding of instructions, follow-up care, medications, Prescriptions given X 2, 16:38 Patient left the ED. iw Signatures: Dispatcher [employer] EDMS Cristel Wiley RN RN Sheree Harris RN RN aa5 Ray Winchester PA PA cp [place], Ruby ra3 Corrections: (The following items were deleted from the chart) 13:40 13:19 BP 147 / 87; Pulse 77bpm; Resp 16bpm; Pulse Ox 98%; 88 kg; Height 5 ft. 4 in.; iw BMI: 33.3; Pain 10/10, Adult; iw 07/14 07:23 11 14:13 Patient has correct armband on for positive identification. Bed in low aa5 position. Call light in reach. Side rails up X2. aa5 07/14 07:23 07/13 14:13 Pulse ox on. NIBP on. aa5 aa5 07/14 07:24 07/13 14:13 General: Appears uncomfortable, Behavior is calm, cooperative, aa5 [facility] 07/14 14:13 Pain: Complains of pain in right hip Pain does not radiate. Pain currently aa5 is 10 out of 10 on a pain scale. Quality of pain is described as sharp, Pain began this morning Is continuous, Aggravated by weight bearing, movement [facility] 07/14 14:13 Neuro: Level of Consciousness is awake, alert, obeys commands, Oriented to aa5 person, place, time, situation, [facility] 07/14 14:13 Cardiovascular: Patient's skin is warm and dry. aa5 [facility] 07/14 14:13 Respiratory: Airway is patent Respiratory effort is even, unlabored, aa Respiratory pattern is regular, symmetrical, [facility] 07/14 14:13 GI: Abdomen is round non-distended, 5 [facility] 07/14 14:13 : No signs and/or symptoms were reported regarding the genitourinary aa5 system. [facility] 07/14 14:13 EENT: No signs and/or symptoms were reported regarding the EENT system. [place] [id number] 07/14 14:13 Derm: Skin is dry, Skin is normal, Skin temperature is warm [facility] 07/14 14:13 Musculoskeletal: Reports pain in right hip aa5 aa
--- NOTE | 2024-07-13 16:14 | EDPHYS ---
Physician Documentation [facility] Name: Octavia Anderson Age: 74 yrs Sex: Female : 1950 Arrival Date: 07/13/2024 Time: 13:14 Bed 11 Private MD: ED Physician Black Gomez HPI: 07/13 13:30 This 74 yrs old Black Female presents to ER via Wheelchair with complaints of Hip Pain cp - right. 13:30 The patient or guardian reports pain. The complaints affect the right hip. Onset: The cp symptoms/episode began/occurred this morning. 13:30 Associated signs and symptoms: Pertinent negatives: abdominal pain, chest pain, cp diarrhea, dysuria, fever, incontinence, weakness, numbness, injury, low back pain. 13:30 sustained from unknown reason, The patient is able to self ambulate. The patient is cp able to bear partial body weight. pain started this morning and has continued to worsen. patient denies low back pain, denies injury. reports pain to right buttock and right hip with pain radiating to right upper leg. Historical: - Allergies: 13:20 PENICILLINS; iw - PMHx: 13:20 Hyperlipidemia; Hypertension; Headaches; Diabetes - NIDDM; Arthritis; GERD; iw - Immunization history:: Adult Immunizations up to date. - Infectious Disease History:: Denies. - Social history:: Smoking status: Patient denies any tobacco usage or history of. ROS: 13:35 MS/extremity: Positive for pain, of the right hip and right upper leg, Negative for cp injury or acute deformity, decreased range of motion, paresthesias, 13:35 Eyes: Negative for injury, pain, redness, and discharge, cp 13:35 Constitutional: Negative for body aches, chills, fever, poor PO intake, 13:35 Neck: Negative for pain with movement, pain at rest, stiffness, cp 13:35 Respiratory: Negative for cough, shortness of breath, wheezing, 13:35 Abdomen/GI: Negative for abdominal pain, nausea, vomiting, and diarrhea, 13:35 Back: Negative for pain at rest, pain with movement, 13:35 : Negative for urinary symptoms, 13:35 Skin: Negative for cellulitis, rash, 13:35 Neuro: Negative for altered mental status, dizziness, headache, weakness, 13:35 All other systems are negative, Exam: 13:40 Constitutional: The patient appears in no acute distress, alert, awake, cp non-diaphoretic, non-toxic, well developed, well nourished, overweight, uncomfortable 13:40 Head/Face: Normocephalic, atraumatic. cp 13:40 Eyes: Periorbital structures: appear normal, Conjunctiva: normal, no exudate, no injection, Sclera: no appreciated abnormality, Lids and lashes: appear normal, bilaterally, 13:40 ENT: External ear(s): are unremarkable, Nose: is normal, Mouth: Lips: moist, Oral mucosa: moist, Posterior pharynx: Airway: no evidence of obstruction, patent, 13:40 Chest/axilla: Inspection: normal, 13:40 Cardiovascular: Rate: normal, Rhythm: regular, Edema: is not appreciated, JVD: is not appreciated, 13:40 Respiratory: the patient does not display signs of respiratory distress, Respirations: normal, no use of accessory muscles, no retractions, labored breathing, is not present, Breath sounds: are clear throughout, no decreased breath sounds, no stridor, no wheezing, 13:40 Abdomen/GI: Inspection: abdomen appears normal, Palpation: abdomen is soft and non-tender, in all quadrants, 13:40 Back: pain, is absent, ROM is normal, 13:40 Musculoskeletal/extremity: Extremities: noted in the right leg: pain and tenderness to right buttock and right hip and right upper leg, ROM: limited passive range of motion due to pain, in the right hip, Perfusion: the extremity is normally perfused throughout, the right foot and right leg Sensation intact. 13:40 Neuro: Orientation: to person, place \T\ time. Mentation: is normal, Motor: moves all fours, no focal deficits, Sensation: no obvious gross deficits, Vital Signs: 13:19 BP 147 / 87; Pulse 77; Resp 16; Temp 97.9(O); Pulse Ox 98% ; Weight 88 kg; Height 5 ft. iw 4 in. ; Pain 10/10; 15:00 BP 132 / 84; Pulse 69; Resp 14 S; Pulse Ox 99% on R/A; aa5 13:19 Body Mass Index 33.30 (88.00 kg, 162.56 cm) iw 13:19 Pain Scale: Adult iw MDM: 16:13 Medical Screening Exam initiated cp 16:13 Data reviewed: vital signs, nurses notes, lab test result(s), radiologic studies, plain cp films. 16:13 Differential diagnosis: hip fracture, intertrochanteric fracture, femoral neck cp fracture, femoral shaft fracture, bursitis, sciatica. I considered the following discharge prescriptions or medication management in the emergency department Medications were administered in the Emergency Department. See MAR. Counseling: I had a detailed discussion with the patient and/or guardian regarding the historical points, exam findings, and any diagnostic results supporting the discharge/admit diagnosis, lab results, radiology results, the need for outpatient follow up, a family practitioner, to return to the emergency department if symptoms worsen or persist or if there are any questions or concerns that arise at home. Response to treatment: the patient's symptoms have mildly improved after treatment, and as a result, I will discharge patient. 07/13 13:28 Order name: Urinalysis w/ reflexes; Complete Time: 14:28 cp 07/13 14:28 Interpretation: Normal except: UGLUC 1+; UPROT 1+; UBACT 20-50. cp 07/13 13:28 Order name: XRAY Hip RIGHT 2 view; Complete Time: 16:12 cp 07/13 16:12 Interpretation: Report reviewed. cp Administered Medications: 13:59 Drug: Ibuprofen PO 800 mg PO once Route: PO; aa5 15:00 Follow up: Response: No adverse reaction aa5 14:00 Drug: Hydrocodone-Acetaminophen PO (7.5 mg-325 mg) 1 tabs PO once; RASS on ADMIN: aa5 Combtv4, Very Agttd3, Agttd2, Rstlss1, AlertClm0, Drwsy-1, Lt Sdtn-2, Mod Sdtn-3, Dp Sdtn-4, UnArsble-5 Route: PO; 15:00 Follow up: Response: No adverse reaction aa5 Disposition: 16:34 I was immediately available on-site in the Emergency Department for consultation in the ms3 care of the patient. Disposition Summary: 07/13/24 16:13 Discharge Ordered Notes: Location: Home cp Problem: new cp Symptoms: have improved cp Condition: Stable cp Diagnosis - Sciatica, right side cp Followup: cp - With: Private Physician - When: 2 - 3 days - Reason: Recheck today's complaints Discharge Instructions: - Discharge Summary Sheet cp - Sciatica cp Forms: - Medication Reconciliation Form cp - Antibiotic Education cp - Prescription Opioid Use cp - Patient Portal Instructions cp - Leadership Thank You Letter cp Prescriptions: - Celebrex 200 mg Oral Capsule - take 1 capsule ORAL route once daily As needed take with food; 20 capsule; cp Refills: 0, Product Selection Permitted - methocarbamol 750 mg Oral tablet - take 1 tablet ORAL route 3 times per day As needed; 30 tablet; Refills: 0, cp Product Selection Permitted Signatures: Dispatcher [employer] EDMS Cristel Wiley RN RN iw Sheree Harris RN RN aa5 Ray Winchester PA PA cp Sims, Marcus, DO DO ms3 Corrections: (The following items were deleted from the chart) 13:28 13:28 Urinalysis+U.LAB.BRZ ordered. EDMS EDMS 16:13 13:35 MS/extremity: Positive for pain, of the right hip, cp cp
[2024-07-13 16:42] VITALS: BP 147/87; TEMP 97.9; O2SAT 98
== END 2024-07-13 16:38 | disposition home or self-care (01) ==
LOC: ER 13:14
DX: M54.31 Sciatica, right side (principal)
CPT/HCPCS: 81001; 99284